=== PATIENT | male | born 1950 | race Caucasian/White ===

== ENCOUNTER 2024-09-30 21:46 | Inpatient (IN) ==
[2024-09-30] MEDS: ACETAMINOPHEN 1,000 MG/100 ML VIAL IV STA (22:33)
--- NOTE | 2024-09-30 22:42 | Emergency Department Note ---
History of Present Illness General Chief complaint: Leg Injury/Pain Stated complaint: R LEG GOING NUMB,?BLOODCLOT Time Seen by Provider: 09/30/24 22:01 History of Present Illness Maximum Pain Intensity: 5 This 74-year-old male presents to the ER complaining of bilateral leg pain and swelling with generalized weakness who was diagnosed with a DVT in the right leg 2 weeks ago by Hu and is currently on Eliquis. Patient denies chest pain, dyspnea, fever, chills, cough, congestion, trauma to the area. Home Medications Medication Instructions Recorded Confirmed Type multivitamin 1 tab PO DAILY 12/11/22 10/01/24 History vitamin B complex 1 tab PO DAILY 12/11/22 12/23/23 History ascorbic acid (vitamin C) 500 mg 500 mg PO DAILY 01/06/23 12/23/23 History tablet (Vitamin C) cholecalciferol (vitamin D3) 25 25 mcg PO DAILY 01/06/23 12/23/23 History mcg (1,000 unit) capsule ferrous sulfate 325 mg (65 mg 325 mg PO DAILY 01/06/23 12/23/23 History iron) tablet (iron) zinc gluconate 100 mg tablet 100 mg PO DAILY 01/06/23 12/23/23 History warfarin 5 mg tablet 5 mg PO DAILY 12/23/23 12/23/23 History lidocaine 5 % topical patch 1 patch topical DAILY PRN pain #15 08/07/24 Rx ea oxycodone 5 mg tablet 5 mg PO Q8H PRN pain #9 tabs 08/07/24 Rx apixaban 5 mg (74 tabs) tablets in 5 mg PO BID 10/01/24 10/01/24 History a dose pack (Eliquis) atorvastatin 40 mg tablet 40 mg PO QAM 10/01/24 10/01/24 History metoprolol succinate 25 mg 25 mg PO QAM 10/01/24 10/01/24 History tablet,extended release 24 hr mupirocin 2 % topical ointment 1 applic topical TID 10/01/24 10/01/24 History Allergies Allergy/AdvReac Type Severity Reaction Status Date / Time No Known Allergies Allergy Verified 12/23/23 07:40 Past Med/Surg History Problem List (Updated 10/01/24 @ 01:00 by Deisy Nash PA-C) Elevated troponin (Acute) Leukocytosis (Acute) Deep vein thrombosis (DVT) of right lower extremity (Acute) Weakness (Acute) Metastatic non-small cell lung cancer (Chronic) Biopsy on 11/11/22 Pain from bone metastases (Chronic) Pacemaker (Acute) Placed 09/30/22 Intermittent complete heart block (Acute) Hypertension Medical History DVT (deep venous thrombosis) Right leg LBBB (left bundle branch block) Surgical History Hx of tonsillectomy H/O right knee surgery Meniscus surgery History of surgery Lumbar spine surgery History of bronchoscopy Family History Mother , 79yo CHF (congestive heart failure) Father , 91yo Bladder cancer Brother No problems noted. Sister Lyme disease Many complications from this Daughter No problems noted. Daughter No problems noted. Daughter No problems noted. Daughter No problems noted. 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" - How many Children do You have: 4 Feels Safe at Home: Yes Diet: regular caffeine: No during the past year weight has: decreased > 10 lbs Assistive Devices: Glasses Review of Systems A total of 10 systems reviewed and were otherwise negative Physical Exam Vital Signs Vital Signs - 24 hr 09/30/24 21:51 09/30/24 22:22 09/30/24 23:00 Temperature 36.5 C Temperature Source Oral Pulse Rate 67 67 Pulse Rate [Apical] 61 Pulse Rate from SpO2 Sensor Pulse Rhythm Regular Pulse Strength Normal Respiratory Rate 19 20 18 Respiratory Effort / Characteristics Non-Labored Spontaneous Non-Labored Spontaneous Respiratory Depth Normal Respiratory Pattern Regular Regular Blood Pressure 125/80 102/64 Blood Pressure [Left Arm] 107/69 Blood Pressure Mean 95 77 Blood Pressure Mean [Left Arm] 81 Blood Pressure Position Sitting Blood Pressure Position [Left Arm] Lying Pulse Oximetry 95 97 95 Oxygen Delivery Method Room Air Room Air Room Air Sepsis Recent Fever Within 48 Hours No Sepsis New/Unexplained Change in Mental Status N/A Sepsis Action Taken by Nursing No Action Required 10/01/24 00:15 10/01/24 01:39 10/01/24 01:45 Temperature Temperature Source Pulse Rate 62 65 61 Pulse Rate [Apical] Pulse Rate from SpO2 Sensor 61 61 Pulse Rhythm Pulse Strength Respiratory Rate 13 16 Respiratory Effort / Characteristics Respiratory Depth Respiratory Pattern Blood Pressure 123/79 130/83 Blood Pressure [Left Arm] Blood Pressure Mean 93 98 Blood Pressure Mean [Left Arm] Blood Pressure Position Blood Pressure Position [Left Arm] Pulse Oximetry 95 98 Oxygen Delivery Method Room Air Room Air Sepsis Recent Fever Within 48 Hours Sepsis New/Unexplained Change in Mental Status Sepsis Action Taken by Nursing VITALS: Vitals are noted on the nurse's note and reviewed by myself. Vital signs stable. GENERAL: White male, in no acute distress, nondiaphoretic, well-developed well- nourished. SKIN: Capillary reflex less than 2 seconds. HEENT: Normocephalic. PERRLA. EOMI. Nares patent. Mucous membranes moist. Neck is supple without nuchal rigidity. HEART: Regular rate and rhythm LUNGS: Clear to auscultation bilaterally without wheezes, rales or rhonchi. No retractions or accessory muscle use. ABDOMEN: Positive bowel sounds x 4. Normal tympanic percussion. Soft, nontender, without masses or organomegaly. Castillo sign negative. No guarding or rebound tenderness. no CVA tenderness MUSCULOSKELETAL: No gross musculoskeletal defects. +2 pedal pitting edema bilaterally. Pedal pulses +2 equal and present bilaterally. Bilateral calves tender to palpation. Venous stasis changes bilaterally to lower legs. NEURO: Patient was alert and oriented to person place and time. No focal neurological deficits. Course Administered Medications Discontinued Medications Acetaminophen (Ofirmev) 1,000 mg in 100 mls @ 400 mls/hr IV NOW STA Stop: 09/30/24 22:21 Last Infusion: 09/30/24 22:48 Dose: Infused Documented By: Admin: 09/30/24 22:33 Dose: 400 mls/hr Documented By: RORO Ioversol (Optiray 320 125ml) 120 ml IV ONCE ONE Stop: 09/30/24 23:33 Last Admin: 09/30/24 23:32 Dose: 120 ml Documented By: FRANCOISE Medical Decision Making Medical Records Attestation: I reviewed the patient's medical records. Home Medications Current Medication List: was personally reviewed by me Laboratory Data Attestation: I reviewed the patient's lab results. 09/30/24 22:30 09/30/24 22:30 Lab Results 09/30/24 Range/Units 22:30 WBC 20.37 H (4.8-10.8) K/ul RBC 3.46 L (4.70-6.10) M/uL Hgb 12.0 L (14.0-18.0) g/dl Hct 35.5 L (42.0-52.0) % MCV 102.6 H (80.0-100.0) fL MCH 34.7 H (25.0-34.0) pg MCHC 33.8 (32.0-36.0) g/dL RDW Std Deviation 65.3 H (36.4-46.3) fL RDW Coeff of Kuldeep 17.6 H (11.5-14.5) % Plt Count 110 L (130-400) K/uL MPV 10.5 (9.4-12.4) fL Immature Gran % (Auto) 1.6 % Neut % (Auto) 93.5 % Lymph % (Auto) 1.2 % [place] % (Auto) 3.0 % Eos % (Auto) 0.0 % Baso % (Auto) 0.7 % Neut # (Auto) 19.02 H (1.40-6.50) K/uL Lymph # (Auto) 0.25 L (1.20-3.40) K/uL [place] # (Auto) 0.62 H (0.11-0.59) K/uL Eos # (Auto) 0.00 (0.00-0.50) K/uL Baso # (Auto) 0.15 (0.00-0.20) K/uL Immature Gran # (Auto) 0.33 H (0.01-0.20) K/uL Toxic Granulation 1+ Polychromasia 1+ Sodium 136 (136-145) mmol/L Potassium 3.5 (3.5-5.1) mmol/L Chloride 97 L (98-107) mmol/L Carbon Dioxide 33 H (21-32) mmol/L Anion Gap 6 (3-11) BUN 36 H (6-23) mg/dl Creatinine 0.77 (0.6-1.4) mg/dl Est Cr Clr Drug Dosing 83.5 ml/min eGFR 93.95 BUN/Creatinine Ratio 46.8 H (10-20) Glucose 135 H (70-99(Fasting)) mg/dl Calcium 8.4 L (8.6-10.3) mg/dl Magnesium 1.9 (1.7-2.4) mg/dl Total Bilirubin 0.9 (0.2-1.0) mg/dl AST 22 (13-39) U/L ALT 23 (7-52) U/L Alkaline Phosphatase 121 H (34-104) U/L Total Creatine Kinase 80 (30-223) U/L Troponin I High Sens 26.1 H (0-20) pg/ml Total Protein 5.1 L (6.0-8.3) gm/dl Albumin 3.1 L (3.4-5.0) gm/dl Globulin 2.0 L (2.5-4.0) gm/dl Albumin/Globulin Ratio 1.6 (0.9-2) TSH 1.002 (0.300-4.500) uIu/ml Imaging Data Attestation: I personally reviewed and interpreted this imaging study as follows: Radiologist's Impression: Chest CTA 09/30/24 22:07 Exam(s): CTA CHEST IV Amt: 120 ml EXAM: CT Angiography Chest With Intravenous Contrast CLINICAL HISTORY: Reason for exam: Eval for PE. TECHNIQUE: Axial computed tomographic angiography images of the chest with intravenous contrast. CTDI is 16.62 mGy and DLP is 526.45 mGy-cm. Automated exposure control was utilized for the study. A dose lowering technique was utilized adhering to the principles of ALARA. MIP reconstructed images were created and reviewed. COMPARISON: CT chest: 12/11/2022 FINDINGS: Motion-induced image degradation. Pulmonary arteries: A mildly enlarged right central pulmonary artery: 31 mm in diameter. No pulmonary embolism. Aorta: No acute findings. Calcified atheromatous plaques. An ectatic ascending aorta: 41 mm in diameter. No thoracic aortic aneurysm. Heart: Left subclavian pacemaker with intracardiac electrode leads. Moderate cardiomegaly. No significant pericardial effusion. No evidence of RV dysfunction. Lungs: Bilateral bronchial wall thickening/tubular bronchiectasis. Upper lobes dominant moderately severe centrilobular emphysema. Demonstrates diffuse subpleural reticulation and predominantly bibasilar honeycombing with traction bronchiectasis, compatible with usual interstitial pneumonia pattern fibrosis. A 2.3 x 1.7 cm spiculated mass versus previously 4.3 x 3.5 cm seen in the left lower lobe posteriorly (ser 3 image 51). Again noted a 10 mm pleural-based nodule in superior segment right lower lobe posteriorly (series 3 image 59). A new 2.2 x 1. 6 cm sub-solid nodule posteriorly in the left lower lobe (series 3 image 34). Small scattered additional pulmonary nodules. Pleural space: Unremarkable. No significant effusion. No pneumothorax. Bones/joints: No acute fracture. No dislocation. Degenerative thoracic spondylosis. Soft tissues: Unremarkable. Patulous somewhat dilated air-filled thoracic esophagus. Lymph nodes: Bilateral hilar small lymphadenopathy.. Small mediastinal lymph nodes.. Other findings: Bilaterally interval enlarged adrenal glands RT>LT. IMPRESSION: No evidence of pulmonary embolism or aortic aneurysm. Mildly enlarged central pulmonary artery. Moderate cardiomegaly. An ectatic ascending aorta. Moderately severe pulmonary emphysema. Bilateral bronchial wall thickening/central tubular bronchiectasis. UIP pattern pulmonary fibrosis. Again noted suspicious pulmonary nodules as described above. Bilateral hilar small lymphadenopathy. Interval enlarged bilateral adrenal glands RT>LT concerning for metastatic disease. . Electronically signed by: Stephenie Thompson MD, DABR 10/01/24 02:08 AM MDM Narrative Prior records/ancillary studies reviewed and summarized above. Nursing notes reviewed. Additional history obtained from nursing. The patient's history was concerning for leg pain and swelling and generalized weakness. Differential diagnosis: Etiologies such as DVT, metabolic, infection, hypo/hyperglycemia, electrolyte abnormalities, cardiac sources, intracerebral event, toxicologic, neurologic, as well as others were entertained. Physical examination: As above. ER treatment provided: IV Lock An order was placed for continuous cardiac monitoring. The monitor shows a rate of 60-100 with a sinus rhythm per my interpretation. Patient was observed On reassessment the patient felt better. Diagnostics interpretation by me: ECG: Ordered for weakness EKG: AV paced rhythm with no acute ST-T wave changes, rate of 62. Impression paced rhythm rate of 62 interval interpreted myself The labs Independently Interpreted by myself revealed leukocytosis, mild anemia, elevated troponin Imaging studies: Imaging was reviewed and read by radiology Consultation: A consultation was placed with the hospitalist. The case was discussed and diagnostics were reviewed. The patient was evaluated in the ER for further treatment. Exam and history seem consistent with ongoing DVT with weakness with lung cancer. Patient's troponin was slightly elevated. He does have an elevated white count. No obvious source of infection. Medicine was consulted case discussed. Patient will be admitted to the medical service. By the evaluation outlined above emergent etiologies such as infection, electrolyte abnormalities, intracerebral event, toxologic, neurologic, abnormalities blood glucose, metabolic, as well as others were deemed relatively unlikely. The pt informed about the findings as listed above. All questions were answered and pleased with the treatment. The chart was completed utilizing [employer] Speech voice recognition software. Grammatical errors, random word insertions, pronoun errors, and incomplete sentences are an occassional consequence of this system due to software limitations, ambient noise, and hardware issues. Any formal questions or concerns about the content, text, or information contained within the body of this dictation should be directly addressed to the physician traffic assistant for clarification. Impression & Plan Weakness, Deep vein thrombosis (DVT) of right lower extremity, Leukocytosis, Elevated troponin Discharge Plan Visit Data Chief Complaint: Leg Injury/Pain Stated Complaint: R LEG GOING NUMB,?BLOODCLOT ED Provider: Kenan Robertson ED Midlevel Provider: Deisy Nash Discharge Problem: Weakness, Deep vein thrombosis (DVT) of right lower extremity, Leukocytosis, Elevated troponin Patient Disposition: Admitted As Inpatient Condition: Fair Forms Stand Alone Forms: [facility] [employer] Prescriptions Prescriptions: No Action zinc gluconate 100 mg tablet 100 mg PO DAILY cholecalciferol (vitamin D3) 25 mcg (1,000 unit) capsule 25 mcg PO DAILY multivitamin Tablet 1 tab PO DAILY vitamin B complex Tablet 1 tab PO DAILY ascorbic acid (vitamin C) [Vitamin C] 500 mg tablet 500 mg PO DAILY ferrous sulfate [iron] 325 mg (65 mg iron) tablet 325 mg PO DAILY warfarin 5 mg Tablet 5 mg PO DAILY Rx Instructions: Dose as directed metoprolol tartrate 25 mg Tablet 25 mg PO DAILY mupirocin calcium 2 % cream 1 applic topical BID Qty: 30 0RF lidocaine 5 % adhesive patch,medicated 1 patch TOP DAILY PRN (Reason: pain) Qty: 15 0RF Rx Instructions: leave on most painful area for 12 hrs oxycodone 5 mg tablet 5 mg PO Q8H PRN (Reason: pain) Qty: 9 0RF Referrals Referrals: Tito Valenzuela DO [Primary Care Provider] -
[2024-09-30 23:00] LABS: Hematocrit (blood only) 35.5 % (42.0-52.0); Mean Corpuscular Hemoglobin 34.7 pg (25.0-34.0); Mean Corpuscular Hgb Conc 33.8 g/dL (32.0-36.0); Mean Corpuscular Volume 102.6 fL (80.0-100.0); Mean Platelet Volume 10.5 fL (9.4-12.4); Platelet Count 110 K/uL (130-400); RDW Coefficient of Variation 17.6 % (11.5-14.5); RDW Standard Deviation 65.3 fL (36.4-46.3); Red Blood Count 3.46 M/uL (4.70-6.10); White Blood Count 20.37 K/ul (4.8-10.8)
[2024-09-30 23:17] LABS: Albumin Globulin Ratio 1.6 (0.9-2); BUN Creatinine Ratio 46.8 (10-20); Bilirubin,Total 0.9 mg/dl (0.2-1.0); Calcium 8.4 mg/dl (8.6-10.3); Creatinine Clr Calc Pharmacy 83.5 ml/min; Magnesium 1.9 mg/dl (1.7-2.4); Potassium 3.5 mmol/L (3.5-5.1); Total Protein 5.1 gm/dl (6.0-8.3)
[2024-09-30 23:24] LABS: Troponin I High Sensitivity 26.1 pg/ml (0-20)
[2024-09-30] MEDS: OPTIRAY 320 125ml IV ONE (23:32)
[2024-09-30 23:34] LABS: Thyroid Stimulating Hormone 1.002 uIu/ml (0.300-4.500)
[2024-09-30 23:45] LABS: Basophils # (auto) 0.15 K/uL (0.00-0.20); Basophils % (auto) 0.7 %; Immature Granulocytes # (auto) 0.33 K/uL (0.01-0.20); Immature Granulocytes % (auto) 1.6 %; Lymphocytes # (auto) 0.25 K/uL (1.20-3.40); Lymphocytes % (auto) 1.2 %; Monocytes # (auto) 0.62 K/uL (0.11-0.59); Neutrophils # (auto) 19.02 K/uL (1.40-6.50); Neutrophils % (auto) 93.5 %; Polychromasia 1+; Toxic Granulation 1+
--- NOTE | 2024-10-01 02:09 | CT Scan Report ---
Exam(s): CTA CHEST IV Amt: 120 ml EXAM: CT Angiography Chest With Intravenous Contrast CLINICAL HISTORY: Reason for exam: Eval for PE. TECHNIQUE: Axial computed tomographic angiography images of the chest with intravenous contrast. CTDI is 16.62 mGy and DLP is 526.45 mGy-cm. Automated exposure control was utilized for the study. A dose lowering technique was utilized adhering to the principles of ALARA. MIP reconstructed images were created and reviewed. COMPARISON: CT chest: 12/11/2022 FINDINGS: Motion-induced image degradation. Pulmonary arteries: A mildly enlarged right central pulmonary artery: 31 mm in diameter. No pulmonary embolism. Aorta: No acute findings. Calcified atheromatous plaques. An ectatic ascending aorta: 41 mm in diameter. No thoracic aortic aneurysm. Heart: Left subclavian pacemaker with intracardiac electrode leads. Moderate cardiomegaly. No significant pericardial effusion. No evidence of RV dysfunction. Lungs: Bilateral bronchial wall thickening/tubular bronchiectasis. Upper lobes dominant moderately severe centrilobular emphysema. Demonstrates diffuse subpleural reticulation and predominantly bibasilar honeycombing with traction bronchiectasis, compatible with usual interstitial pneumonia pattern fibrosis. A 2.3 x 1.7 cm spiculated mass versus previously 4.3 x 3.5 cm seen in the left lower lobe posteriorly (ser 3 image 51). Again noted a 10 mm pleural-based nodule in superior segment right lower lobe posteriorly (series 3 image 59). A new 2.2 x 1. 6 cm sub-solid nodule posteriorly in the left lower lobe (series 3 image 34). Small scattered additional pulmonary nodules. Pleural space: Unremarkable. No significant effusion. No pneumothorax. Bones/joints: No acute fracture. No dislocation. Degenerative thoracic spondylosis. Soft tissues: Unremarkable. Patulous somewhat dilated air-filled thoracic esophagus. Lymph nodes: Bilateral hilar small lymphadenopathy.. Small mediastinal lymph nodes.. Other findings: Bilaterally interval enlarged adrenal glands RT>LT. IMPRESSION: No evidence of pulmonary embolism or aortic aneurysm. Mildly enlarged central pulmonary artery. Moderate cardiomegaly. An ectatic ascending aorta. Moderately severe pulmonary emphysema. Bilateral bronchial wall thickening/central tubular bronchiectasis. UIP pattern pulmonary fibrosis. Again noted suspicious pulmonary nodules as described above. Bilateral hilar small lymphadenopathy. Interval enlarged bilateral adrenal glands RT>LT concerning for metastatic disease. . Electronically signed by: Stephenie Thompson MD, DABR 10/01/24 02:08 AM
--- NOTE | 2024-10-01 02:28 | Ultrasound Report ---
EXAM: US venous doppler LE BI CLINICAL HISTORY: Eval for DVT TECHNIQUE: Ultrasound examination of bilateral lower extremity veins was performed in real time and duplex. One or more of the following were performed: spectral analysis, resistive index, waveform analysis, and pulsed Doppler. COMPARISON: Ultrasound dated 06/02/2023. FINDINGS: Right lower extremity: A small non-occlusive echogenic thrombus with linear calcifications is seen in the right popliteal vein, measuring 3.5 mm, likely chronic (unchanged). Normal phasic, non-pulsatile, and spontaneous flow is noted in the right common femoral, superficial femoral, anterior and posterior tibial, and peroneal veins. Visualized veins of the right lower extremity demonstrate normal compressibility. No sonographic evidence of acute deep vein thrombosis (DVT) is detected in the visualized veins of the lower extremity. Compression and Augmentation: All evaluated veins compress fully with applied transducer pressure. Augmentation of venous flow is noted with distal compression. Left lower extremity: Normal phasic, non-pulsatile, and spontaneous flow is noted in the left common femoral, superficial femoral, popliteal, anterior and posterior tibial, and peroneal veins. Visualized veins of the right lower extremity demonstrate normal compressibility. No sonographic evidence of acute deep vein thrombosis (DVT) is detected in the visualized veins of the lower extremity. Compression and Augmentation: All evaluated veins compress fully with applied transducer pressure. Augmentation of venous flow is noted with distal compression. Additional Findings: Edematous changes are seen in the bilateral calf regions. IMPRESSION: 1. No sonographic evidence of acute DVT was detected in bilateral lower extremity veins. 2. A small non-occlusive echogenic thrombus with linear calcifications is seen in the right popliteal vein, likely chronic (unchanged). 3. Edematous changes are seen in the bilateral calf regions(new). Disclaimer: DVT could be missed early in the disease when the clot burden is minimal. For patients with moderate and high pretest probability of DVT and negative ultrasound, the [employer] clinical guidelines recommend testing with a D-dimer assay or repeat ultrasound in 5-7 days. If symptoms worsen, the Society of [employer] in Ultras[employer] recommends repeating the ultrasound even earlier. Electronically signed by Bismark Stiles 10-01-2024 02:28 AM
[2024-10-01 02:48] LABS: INR 1.2 (0.9-1.1); Prothrombin Time 12.4 Seconds (9.0-12.0)
--- NOTE | 2024-10-01 03:38 | History & Physical Report ---
Date of Service October 01, 2024 Assessment & Plan (1) Right leg weakness: Plan: Assessment and plan below following discussion of case with ED provider and reviewing patient history/pertinent normal/abnormal diagnostic test results. RLE weakness rule out CVA hx CAD complete heart block status post PPM A-fib/DVT on Eliquis Chronic LBBB hypertension, stable hyperlipidemia, on statin Rx COPD/ILD as per records, lung status at baseline metastatic NSCLC status post radiation ongoing chemotherapy, outpatient PET/CT scheduled few days from now Chronic anemia, hemoglobin at baseline Leukocytosis with new onset thrombocytopenia right rotator cuff tear following trauma last month, patient follows with [facility] past tobacco abuse OBS Admit to med/tele Neurochecks MRI brain (Patient pacemaker is MRI compatible.) Further workup/management contingent on MRI results Hold BP medication until acute stroke ruled out Peripheral blood smear RE abnormal CBC DVT prophylaxis. Eliquis DNR Text document was generated using [employer] voice recognition software. It may contain grammatical or spelling errors. Kindly contact undersigned for clarification of any documentation item in question. History of Present Illness Chief Complaint: Right leg weakness Primary Care Provider: Tito Valenzuela DO History obtained from patient and records. Medical history significant for CAD, complete heart block status post PPM, A- fib/DVT on Eliquis, LBBB, hypertension, hyperlipidemia, PVD, COPD/ILD as per records, DAVID, metastatic NSCLC status post radiation ongoing chemotherapy, GERD, chronic anemia (baseline hemoglobin 10-11), right rotator cuff tear, past tobacco abuse. Few days history of progressive bilateral LE weakness, right greater than the left. No headache or unusual back pain symptoms. No recollection of recent trauma. Usual bilateral leg swelling. No chest pain, or SOB. No fever, no chills. Patient consulted ER for evaluation of symptoms. 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 100 mcg-umeclid 1 inh inhalation UD 10/01/24 10/01/24 History 62.5 mcg-vilant 25 mcg inhalat.powder (Trelegy Ellipta) metoprolol succinate 25 mg 25 mg PO QAM 10/01/24 10/01/24 History tablet,extended release 24 hr multivitamin 1 tab PO QAM 10/01/24 10/01/24 History mupirocin 2 % topical ointment 1 applic topical TID 10/01/24 10/01/24 History Past Med/Surg History Problem List (Updated 10/01/24 @ 09:52 by Esteban Olmos MD) Right leg weakness Elevated troponin (Acute) Leukocytosis (Acute) Deep vein thrombosis (DVT) of right lower extremity (Acute) Weakness (Acute) Metastatic non-small cell lung cancer (Chronic) Biopsy on 11/11/22 Pain from bone metastases (Chronic) Pacemaker (Acute) Placed 09/30/22 Intermittent complete heart block (Acute) Hypertension Medical History DVT (deep venous thrombosis) Right leg LBBB (left bundle branch block) Surgical History Hx of tonsillectomy H/O right knee surgery Meniscus surgery History of surgery Lumbar spine surgery History of bronchoscopy Family History Mother , 79yo CHF (congestive heart failure) Father , 91yo Bladder cancer Brother No problems noted. Sister Lyme disease Many complications from this Daughter No problems noted. Daughter No problems noted. Daughter No problems noted. Daughter No problems noted. 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" - How many Children do You have: 4 Feels Safe at Home: Yes Safety Concerns: Feels Safe At This Time Diet: regular caffeine: No during the past year weight has: decreased > 10 lbs Assistive Devices: Glasses Review of Systems Review of Systems: As per HPI, all other systems reviewed and negative Physical Exam Physical Exam: GENERAL: Pleasant, slightly anxious, no respiratory distress SKIN: Pallor, warm HEENT: Alopecia, pale palpebral conjunctivae, no ptosis, dry buccal mucosa NECK : Supple, no tenderness CHEST : Decreased breath sounds, no tenderness HEART : RRR, no obvious murmurs ABDOMEN: Some distention, nontender EXTREMITIES : Bilateral LE swelling without tenderness (chronic as per patient), palpable pulses, no other conspicuous deformities noted NEUROLOGIC : Coherent, no facial asymmetry, MMTS 3/5 L>R, gait and stance not assessed Results & Data Results & Data Vital Signs (Past 12 Hours) Vital Signs Temp Pulse Pulse Resp BP BP Pulse Ox 10/01/24 02:42 67 13 116/77 95 10/01/24 02:12 63 12 117/77 94 10/01/24 01:45 61 10/01/24 01:39 65 16 130/83 98 10/01/24 00:15 62 13 123/79 95 09/30/24 23:00 67 18 102/64 95 09/30/24 22:22 61 20 107/69 97 09/30/24 21:51 36.5 C 67 19 125/80 95 O2 Del Method 10/01/24 02:42 10/01/24 02:12 10/01/24 01:45 10/01/24 01:39 Room Air 10/01/24 00:15 Room Air 09/30/24 23:00 Room Air 09/30/24 22:22 Room Air 09/30/24 21:51 Room Air Laboratory Results Laboratory Results WBC 20.37 K/ul (4.8-10.8) H 09/30/24 22:30 RBC 3.46 M/uL (4.70-6.10) L 09/30/24 22:30 Hgb 12.0 g/dl (14.0-18.0) L 09/30/24 22:30 Hct 35.5 % (42.0-52.0) L 09/30/24 22:30 MCV 102.6 fL (80.0-100.0) H 09/30/24 22: MCH 34.7 pg (25.0-34.0) H 09/30/24: MCHC 33.8 g/dL (32.0-36.0) 09/30/24: RDW Std Deviation 65.3 fL (36.4-46.3) H 09/30/24: RDW Coeff of Kuldeep 17.6 % (11.5-14.5) H 09/30/24: Plt Count 110 K/uL (130-400) L 09/30/24: MPV 10.5 fL (9.4-12.4) 09/30/24: Immature Gran % (Auto) 1.6 % 09/30/24: Neut % (Auto) 93.5 % 09/30/24: Lymph % (Auto) 1.2 % 09/30/24: Dickens % (Auto) 3.0 % 09/30/24: Eos % (Auto) 0.0 % 09/30/24: Baso % (Auto) 0.7 % 09/30/24: Neut # (Auto) 19.02 K/uL (1.40-6.50) H 09/30/24: Lymph # (Auto) 0.25 K/uL (1.20-3.40) L 09/30/24:30 Dickens # (Auto) 0.62 K/uL (0.11-0.59) H 09/30/24: Eos # (Auto) 0.00 K/uL (0.00-0.50) 09/30/24: Baso # (Auto) 0.15 K/uL (0.00-0.20) 09/30/24: Immature Gran # (Auto) 0.33 K/uL (0.01-0.20) H 09/30/24 22: Toxic Granulation 1+ 09/30/24: Polychromasia 1+ 09/30/24: PT 12.4 Seconds (9.0-12.0) H 09/30/24: INR 1.2 (0.9-1.1) H 09/30/24 22:30 Sodium 136 mmol/L (136-145) 09/30/24 22:30 Potassium 3.5 mmol/L (3.5-5.1) 09/30/24 22:30 Chloride 97 mmol/L (98-107) L 09/30/24 22:30 Carbon Dioxide 33 mmol/L (21-32) H 09/30/24 22:30 Anion Gap 6 (3-11) 09/30/24 22:30 BUN 36 mg/dl (6-23) H 09/30/24 22:30 Creatinine 0.77 mg/dl (0.6-1.4) 09/30/24 22: Est Cr Clr Drug Dosing 83.5 ml/min 09/30/24 22:30 eGFR 93.95 09/30/24 22:30 BUN/Creatinine Ratio 46.8 (10-20) H 09/30/24 22:30 Glucose 135 mg/dl (70-99(Fasting)) H 09/30/24 22:30 Calcium 8.4 mg/dl (8.6-10.3) L 09/30/24 22:30 Magnesium 1.9 mg/dl (1.7-2.4) 09/30/24 22:30 Total Bilirubin 0.9 mg/dl (0.2-1.0) 09/30/24 22:30 AST 22 U/L (13-39) 09/30/24 22:30 ALT 23 U/L (7-52) 09/30/24 22:30 Alkaline Phosphatase 121 U/L (34-104) H 09/30/24 22:30 Total Creatine Kinase 80 U/L (30-223) 09/30/24 22:30 Troponin I High Sens 26.1 pg/ml (0-20) H 09/30/24 22:30 Total Protein 5.1 gm/dl (6.0-8.3) L 09/30/24 22:30 Albumin 3.1 gm/dl (3.4-5.0) L 09/30/24 22:30 Globulin 2.0 gm/dl (2.5-4.0) L 09/30/24 22:30 Albumin/Globulin Ratio 1.6 (0.9-2) 06/28/25 22:30 Procalcitonin 0.06 ng/ml (0-0.5) 09/30/24 22:30 TSH 1.002 uIu/ml (0.300-4.500) 09/30/24 22:30 Impressions Chest CTA 09/30/24 22:07 Exam(s): CTA CHEST IV Amt: 120 ml EXAM: CT Angiography Chest With Intravenous Contrast CLINICAL HISTORY: Reason for exam: Eval for PE. TECHNIQUE: Axial computed tomographic angiography images of the chest with intravenous contrast. CTDI is 16.62 mGy and DLP is 526.45 mGy-cm. Automated exposure control was utilized for the study. A dose lowering technique was utilized adhering to the principles of ALARA. MIP reconstructed images were created and reviewed. COMPARISON: CT chest: 12/11/2022 FINDINGS: Motion-induced image degradation. Pulmonary arteries: A mildly enlarged right central pulmonary artery: 31 mm in diameter. No pulmonary embolism. Aorta: No acute findings. Calcified atheromatous plaques. An ectatic ascending aorta: 41 mm in diameter. No thoracic aortic aneurysm. Heart: Left subclavian pacemaker with intracardiac electrode leads. Moderate cardiomegaly. No significant pericardial effusion. No evidence of RV dysfunction. Lungs: Bilateral bronchial wall thickening/tubular bronchiectasis. Upper lobes dominant moderately severe centrilobular emphysema. Demonstrates diffuse subpleural reticulation and predominantly bibasilar honeycombing with traction bronchiectasis, compatible with usual interstitial pneumonia pattern fibrosis. A 2.3 x 1.7 cm spiculated mass versus previously 4.3 x 3.5 cm seen in the left lower lobe posteriorly (ser 3 image 51). Again noted a 10 mm pleural-based nodule in superior segment right lower lobe posteriorly (series 3 image 59). A new 2.2 x 1. 6 cm sub-solid nodule posteriorly in the left lower lobe (series 3 image 34). Small scattered additional pulmonary nodules. Pleural space: Unremarkable. No significant effusion. No pneumothorax. Bones/joints: No acute fracture. No dislocation. Degenerative thoracic spondylosis. Soft tissues: Unremarkable. Patulous somewhat dilated air-filled thoracic esophagus. Lymph nodes: Bilateral hilar small lymphadenopathy.. Small mediastinal lymph nodes.. Other findings: Bilaterally interval enlarged adrenal glands RT>LT. IMPRESSION: No evidence of pulmonary embolism or aortic aneurysm. Mildly enlarged central pulmonary artery. Moderate cardiomegaly. An ectatic ascending aorta. Moderately severe pulmonary emphysema. Bilateral bronchial wall thickening/central tubular bronchiectasis. UIP pattern pulmonary fibrosis. Again noted suspicious pulmonary nodules as described above. Bilateral hilar small lymphadenopathy. Interval enlarged bilateral adrenal glands RT>LT concerning for metastatic disease. . Electronically signed by: Stephenie Thompson MD, VARINDERR 10/01/24 02:08 AM Venous Doppler Study 09/30/24 22:07 EXAM: US venous doppler LE BI CLINICAL HISTORY: Eval for DVT TECHNIQUE: Ultrasound examination of bilateral lower extremity veins was performed in real time and duplex. One or more of the following were performed: spectral analysis, resistive index, waveform analysis, and pulsed Doppler. COMPARISON: Ultrasound dated 06/02/2023. FINDINGS: Right lower extremity: A small non-occlusive echogenic thrombus with linear calcifications is seen in the right popliteal vein, measuring 3.5 mm, likely chronic (unchanged). Normal phasic, non-pulsatile, and spontaneous flow is noted in the right common femoral, superficial femoral, anterior and posterior tibial, and peroneal veins. Visualized veins of the right lower extremity demonstrate normal compressibility. No sonographic evidence of acute deep vein thrombosis (DVT) is detected in the visualized veins of the lower extremity. Compression and Augmentation: All evaluated veins compress fully with applied transducer pressure. Augmentation of venous flow is noted with distal compression. Left lower extremity: Normal phasic, non-pulsatile, and spontaneous flow is noted in the left common femoral, superficial femoral, popliteal, anterior and posterior tibial, and peroneal veins. Visualized veins of the right lower extremity demonstrate normal compressibility. No sonographic evidence of acute deep vein thrombosis (DVT) is detected in the visualized veins of the lower extremity. Compression and Augmentation: All evaluated veins compress fully with applied transducer pressure. Augmentation of venous flow is noted with distal compression. Additional Findings: Edematous changes are seen in the bilateral calf regions. IMPRESSION: 1. No sonographic evidence of acute DVT was detected in bilateral lower extremity veins. 2. A small non-occlusive echogenic thrombus with linear calcifications is seen in the right popliteal vein, likely chronic (unchanged). 3. Edematous changes are seen in the bilateral calf regions(new). Disclaimer: DVT could be missed early in the disease when the clot burden is minimal. For patients with moderate and high pretest probability of DVT and negative ultrasound, the [employer] clinical guidelines recommend testing with a D-dimer assay or repeat ultrasound in 5-7 days. If symptoms worsen, the Society of Radiologists in Ultrasound recommends repeating the ultrasound even earlier. Electronically signed by Bismark Stiles 10-01-2024 02:[address] head: 1. No acute intracranial abnormality is detected. 2. Chronic ischemic white matter changes. CTA head angio: 1. Mild atherosclerotic calcification and irregularity is seen in the petrous and cavernous segment of bilateral internal carotid arteries. CTA neck angio: 1. Atherosclerotic calcific plaques are seen in bilateral proximal internal carotid arteries causing mild stenosis (20-30 percent). No evidence of dissection or aneurysm. Diagnostic Findings EKG as per my interpretation :Rate 60, paced rhythm
[2024-10-01] MEDS ORDERED: PROMETHAZINE 6.25 MG/50.25 ML BAG IV PRN (03:40)
[2024-10-01] MEDS ORDERED: oxyCODONE HCL IR 5 MG TAB (IMMEDIATE RELEASE) PO PRN (03:40)
[2024-10-01] MEDS ORDERED: ACETAMINOPHEN 325 MG TAB PO PRN (03:40)
[2024-10-01] MEDS ORDERED: PHARMACIST DISCHARGE MED REC CONSULT PRN (03:44)
[2024-10-01] MEDS ORDERED: NON-FORMULARY MEDICATION (Fluticasone-Umeclidin-Vilanter [Trelegy Ellipta] 100-62.5-25 mcg INH SCH (03:45)
[2024-10-01] MEDS: OPTIRAY 320 125ml IV ONE (03:45)
[2024-10-01 04:25] LABS: Appearance Urine Clear (Clear); Bilirubin Urine Negative (Negative); Blood Urine Negative (Negative); Color Urine Yellow; Glucose Urine UA Negative (Negative); Ketones Urine Negative (Negative); Leukocyte Esterase Urine Negative (Negative); Nitrite Urine Negative (Negative); Protein Urine Negative (Negative); Specific Gravity Urine > 1.045 (1.000-1.030); Urobilinogen Urine Negative (Negative); pH Urine 7.5 (4.5-7.5)
[2024-10-01] MEDS: ALBUMIN 25% 12.5 GM/50 ML VIAL IV STA (04:34)
[2024-10-01] MEDS: POTASSIUM CHLORIDE PWD 20 MEQ PACK PO STA (04:34)
[2024-10-01] MEDS: MAGNESIUM SULFATE / D5W 1 GM/100 ML BAG IV STA (04:44)
--- NOTE | 2024-10-01 05:10 | CT Scan Report ---
EXAM: CT angio neck with con CLINICAL HISTORY: RLE weakness TECHNIQUE: Contrast enhanced thin slice CT angiography scan of the carotid vessels was performed with intravenous contrast. Angiographic images were processed, 3D MIP images were acquired for interpretation.Contiguous axial images were obtained. Reformatted coronal and sagittal images were also reviewed. If IV contrast material had not been administered, the likelihood of detecting abnormalities relevant to the patients condition would have been substantially decreased. CT scan was performed according to ALARA (as low as reasonable achievable). COMPARISON: - FINDINGS: Included great vessels of the aortic arch are grossly unremarkable. Common carotid artery, carotid Bulb, internal carotid artery , and origin of the external carotid artery are well opacified. Atherosclerotic calcific plaques are seen in bilateral proximal internal carotid arteries causing mild stenosis of around 20-30 percent. Vertebral arteries are well opacified. Jugular veins are well opacified. Included lung apices are grossly unremarkable. Thyroid gland appears unremarkable. IMPRESSION: 1. Atherosclerotic calcific plaques are seen in bilateral proximal internal carotid arteries causing mild stenosis (20-30 percent). No evidence of dissection or aneurysm. Electronically signed by Hank Grider 10-01-2024 05:10 AM
--- NOTE | 2024-10-01 05:11 | CT Scan Report ---
EXAM: CT head/brain wo con CLINICAL HISTORY: RLE weakness, eliquis TECHNIQUE: Multiple axial images are obtained from the skull base to the vertex without contrast. CT scan was performed according to ALARA (as low as reasonable achievable). COMPARISON: MR dated 12/17/2022 09:15:56 SPECIAL NEEDS NANNY. FINDINGS: Periventricular white matter ischemic changes. Rest of the brain shows normal morphology, attenuation, and volume for age. No evidence of hemorrhage, mass effect, midline shift, extra axial collection, or hydrocephalus is noted. Ventricles, sulci, and basal cisterns are symmetric and normal in size and configuration. The velasquez-white matter differentiation is preserved. Visualized paranasal sinuses and mastoid air cells are well aerated. Orbital contents are within normal limits. Bony structures are intact. IMPRESSION: 1. No acute intracranial abnormality is detected. 2. Chronic ischemic white matter changes. Electronically signed by Hank Grider 10-01-2024 05:11 AM
--- NOTE | 2024-10-01 05:11 | CT Scan Report ---
EXAM: CT angio head w con CLINICAL HISTORY: RLE weakness TECHNIQUE: Contrast enhanced thin slice CT angiography scan of the cerebral vessels was performed with intravenous contrast. Angiographic images were processed, 3D MIP images were acquired for interpretation. Contiguous axial images were obtained. Reformatted coronal and sagittal images were also reviewed. If IV contrast material had not been administered, the likelihood of detecting abnormalities relevant to the patients condition would have been substantially decreased. CT scan was performed according to ALARA (as low as reasonable achievable). COMPARISON: - FINDINGS: Mild atherosclerotic calcification and irregularity is seen in the petrous and cavernous segment of bilateral internal carotid arteries. Their division into the anterior cerebral artery and middle cerebral artery is defined. A1, A2 and M1, M2 segments are normal on both the sides. Bilateral vertebral arteries are seen to unite the form the basilar artery in a normal fashion. Basilar artery shows normal course, caliber and opacification. Its division into the posterior cerebral arteries is defined. Bilateral P1 and P2 segments are normal. Visualized venous structures show normal opacification. No evidence of intracranial aneurysm or AV malformation is seen. IMPRESSION: 1. Mild atherosclerotic calcification and irregularity is seen in the petrous and cavernous segment of bilateral internal carotid arteries. Electronically signed by Hank Grider 10-01-2024 05:11 AM
[2024-10-01 06:41] LABS: Hematocrit (blood only) 32.6 % (42.0-52.0); Hemoglobin 11.2 g/dl (14.0-18.0); Mean Corpuscular Hemoglobin 35.1 pg (25.0-34.0); Mean Corpuscular Hgb Conc 34.4 g/dL (32.0-36.0); Mean Corpuscular Volume 102.2 fL (80.0-100.0); Mean Platelet Volume 9.8 fL (9.4-12.4); Platelet Count 100 K/uL (130-400); RDW Coefficient of Variation 17.3 % (11.5-14.5); RDW Standard Deviation 65.1 fL (36.4-46.3); Red Blood Count 3.19 M/uL (4.70-6.10); White Blood Count 16.05 K/ul (4.8-10.8)
[2024-10-01 06:58] LABS: Chol HDL Ratio 2.4 (0-5)
[2024-10-01 07:03] LABS: BUN Creatinine Ratio 47.5 (10-20); Calcium 8.4 mg/dl (8.6-10.3); Creatinine Clr Calc Pharmacy 105.3 ml/min
[2024-10-01 07:10] LABS: Troponin I High Sensitivity 22.5 pg/ml (0-20)
[2024-10-01 07:14] LABS: Basophils # (auto) 0.04 K/uL (0.00-0.20); Basophils % (auto) 0.2 %; Immature Granulocytes # (auto) 0.15 K/uL (0.01-0.20); Immature Granulocytes % (auto) 0.9 %; Lymphocytes # (auto) 0.23 K/uL (1.20-3.40); Lymphocytes % (auto) 1.4 %; Monocytes # (auto) 0.68 K/uL (0.11-0.59); Monocytes % (auto) 4.2 %; Neutrophils # (auto) 14.95 K/uL (1.40-6.50); Neutrophils % (auto) 93.3 %; Polychromasia 1+; Toxic Granulation 2+
[2024-10-01 08:05] LABS: Estimated Average Glucose 111 mg/dl; Hemoglobin A1C 5.5 % (4.5-5.6)
[2024-10-01] MEDS ORDERED: NON-FORMULARY MEDICATION (Apixaban [Eliquis] 5 mg (74 tabs) tablets,dose pack) PO SCH (09:00)
[2024-10-01] MEDS: ATORVASTATIN 40 MG TAB PO SCH (10:01)
[2024-10-01] MEDS: APIXABAN 5 MG TABLET PO SCH (10:01)
[2024-10-01] MEDS: MULTIVITAMIN TAB PO SCH (10:01)
[2024-10-01] MEDS: UMECLIDINIUM/VILANTEROL 62.5/25MCG 7 PUFFS/INHALER INH SCH (10:02)
[2024-10-01] MEDS: FLUTICASONE FUROATE 100MCG 14 PUFFS/INHALER INH SCH (10:02)
--- NOTE | 2024-10-01 11:57 | Electrocardiogram Report ---
Test Reason : Blood Pressure : */* mmHG Vent. Rate : 62 BPM Atrial Rate : 62 BPM P-R Int : 178 ms QRS Dur : 114 ms QT Int : 448 ms P-R-T Axes : 96 -22 6 degrees QTcB Int : 454 ms AV dual-paced rhythm PACs Abnormal ECG When compared with ECG of 05-Dec-2023 12:27, No significant change was found Confirmed by Hood Young ([id number]) on 10/01/2024 11:57:37 AM Referred By: REFERRED SELF Confirmed By: Hood Young
--- NOTE | 2024-10-01 14:14 | Hospitalist Progress Note ---
Date of Service October 01, 2024 Assessment & Plan (1) Right leg weakness: Plan: Assessment and plan below following discussion of case with ED provider and reviewing patient history/pertinent normal/abnormal diagnostic test results. BL Lower extremity weakness Lung Cancer on Chemotherapy r/o acute CVA r/o Lumbar spine compression, stenosis -- CT head: no acute procress CT angio: Atherosclerotic calcific plaques are seen in bilateral proximal in ternal carotid arteries causing mild stenosis (20-30 percent). -- Brain MRI pending CT Lumbar spine: pending MRI Lumbar spine: pending -- check Vit b12 and Folate -- Neuro consulted hx CAD complete heart block status post PPM A-fib/DVT on Eliquis Chronic LBBB hypertension-- stable, Hold BP medication until acute stroke ruled out hyperlipidemia, on statin Rx COPD/ILD as per records, lung status at baseline metastatic NSCLC status post radiation ongoing chemotherapy, outpatient PET/CT scheduled few days from now Chronic anemia, hemoglobin at baseline Leukocytosis with new onset thrombocytopenia-- monitor, Peripheral blood smear RE abnormal CBC right rotator cuff tear following trauma last month, patient follows with [facility] past tobacco abuse DVT prophylaxis. Marcelo DNR plan of care discussed with patient in detail and at length all questions answered he is understanding, agreeable, comfortable with the plan of care Admission and Anticipated Discharge Date Admission Date: October 01, 2024 Subjective ff up for BL lower extremity weakness, etc seen resting in bed comfortable in good spirits states he feels about the same as yesterday still has BL lower extremity weakness- progressive for the past 3-4 weeks, worsened the past few days also has numbness but mostly on BL feet no incontinence no other focal neurologic deficits no chest pain, dyspnea, palpitations, dizziness no other symptoms Review of Systems Review of Systems: all noted and negative except for above Physical Exam Physical Exam: General- oriented x 3, not in distress, speaks in sentences with no effort or accessory muscle use Eyes- anicteric Neck- no JVD Lungs- clear breath sounds bilaterally, no rales/wheezes Heart- normal rate, regular rhythm; no murmurs Abdomen- normal bowel sounds, nondistended, soft, nontender Extremities- no pretibial edema, no calf tenderness Neuro- alert, oriented x 3; strength UE: 5/5, LE: 3/4 on the right 4 on the left, LE sensation 90% Skin- warm & dry Results & Data Results & Data Vital Signs (Past 12 Hours) Vital Signs Temp Pulse Pulse Resp BP BP Pulse Ox 10/01/24 11:37 36.7 C 60 18 115/71 95 10/01/24 08:40 10/01/24 08:40 36.5 C 60 20 126/76 96 10/01/24 07:29 67 15 118/75 97 10/01/24 06:57 65 10/01/24 06:00 80 20 113/80 96 10/01/24 05:00 63 18 134/85 97 10/01/24 04:00 65 18 128/88 96 10/01/24 03:00 61 16 122/84 95 10/01/24 02:42 67 13 116/77 95 O2 Del Method 10/01/24 11:37 Room Air 10/01/24 08:40 Room Air 10/01/24 08:40 Room Air 10/01/24 07:29 Room Air 10/01/24 06:57 10/01/24 06:00 10/01/24 05:00 10/01/24 04:00 10/01/24 03:00 10/01/24 02:42 all noted and reviewed including below
--- NOTE | 2024-10-01 14:29 | Neurology Consultation ---
Date of Consultation October 01, 2024 Assessment & Plan (1) Weakness: Joaquin Molina is a 74 yo M presenting with gradual weakness of the bilateral lower extremities with muscle wasting from metastatic lung CA on chemo, now on chronic decadron which was previously chemo dose pre-treatment. Unclear why the decadron is now daily but this is likely contributing to his primarily large muscle weakness and wasting. Ultimately L-spine disease and nerve compression either from his known compression fractures and/or cancer could also be contributing. The history, pattern of weakness and exam do not suggest stroke and more importantly he is fully anticoagulated with platelet count of 100 - we can not be any more aggressive with stroke risk factor reduction precluding further stroke workup. -- MRI L-spine with and without contrast -- Continue anticoagulation -- Therapy evals -- Would ask/discuss the need for chronic decadron from his oncology team Telehealth Consultation Telehealth Information Telehealth Information: I performed this visit using a real-time telehealth connection between my location and the patients location ([facility]). After connecting through interactive tele-video, patient was identified by name and date of and/or wristband check.Patient (or authorized healthcare provider service representative) was informed that this was a telemedicine visit and it was being conducted confidentially over secure lines. My office door was closed and no one else was present in the room with me.Patient (or authorized healthcare provider service representative) provided consent to proceed with the visit, expressed an understanding of privacy and security of the telemedicine visit, and gave permission to have a hospital provider service representative in the room in order to assist with the visit and to conduct portions of the visit, as needed. I informed the patient (or authorized healthcare provider service representative) that I reviewed their record and presented the opportunity for them to ask any questions regarding the visit today. The patient agreed to participate. History of Present Illness Reason for Consultation: Leg weakness Requesting Physician: Dr. Kerr Attending Physician: Sonu Kerr MD History of Present Illness Joaquin Molina is a 74 yo M with a history of metastatic lung CA, recent R LE DVT despite anticoagulation with warfarin, switched to Eliquis and new progressive lower extremity weakness. He is having difficulty working which is why he came to the hospital. Since the change in his meds and persistent use of decadron for the past few weeks he has noticed ongoing muscle wasting. He was 215lbs with significant muscle in the past and now "feels like a skeleton". He has been taking his elqiuis and denies any acute/sudden onset focal weakness. He has a history of lumbar compression fractures and was told there was cancer in the bone in the past. He denies any recent falls or new onset back pain but has chronic back pain that is unchanged. He feels both legs are significantly weak, primarily in the large upper leg muscles. Allergies Allergy/AdvReac Type Severity Reaction Status Date / Time No Known Allergies Allergy Verified 10/01/24 02:37 Home Medications Medication Instructions Recorded Confirmed Type apixaban 5 mg (74 tabs) tablets in 5 mg PO BID 10/01/24 10/01/24 History a dose pack (Eliquis) atorvastatin 40 mg tablet 40 mg PO QAM 10/01/24 10/01/24 History fluticasone fur. 100 mcg-umeclid 1 inh inhalation UD 10/01/24 10/01/24 History 62.5 mcg-vilant 25 mcg inhalat.powder (Trelegy Ellipta) metoprolol succinate 25 mg 25 mg PO QAM 10/01/24 10/01/24 History tablet,extended release 24 hr multivitamin 1 tab PO QAM 10/01/24 10/01/24 History mupirocin 2 % topical ointment 1 applic topical TID 10/01/24 10/01/24 History Patient History Medical History DVT (deep venous thrombosis) Right leg LBBB (left bundle branch block) Surgical History Hx of tonsillectomy H/O right knee surgery Meniscus surgery History of surgery Lumbar spine surgery History of bronchoscopy Family History Mother , 79yo CHF (congestive heart failure) Father , 91yo Bladder cancer Brother No problems noted. Sister Lyme disease Many complications from this Daughter No problems noted. Daughter No problems noted. Daughter No problems noted. Daughter No problems noted. 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 Oriented to person, place, and time. Fluent. Comprehension intact. Affect appropriate. Cranial Nerves: V: Facial sensation symmetric to light touch VII: Facial expression symmetric VIII: Hearing intact to voice Motor: Strength was reduced throughout, unable to lift R arm due to shoulder injury. Intact distal lower extremity strength, unable to lift leg bilaterally. There were no abnormal movements. Reflexes: Unable to assess over telemedicine Results & Data Vital Signs (Past 12 Hours) Vital Signs Temp Pulse Pulse Resp BP BP Pulse Ox 10/01/24 14:20 60 10/01/24 11:37 36.7 C 60 18 115/71 95 10/01/24 08:40 61 10/01/24 08:40 10/01/24 08:40 36.5 C 60 20 126/76 96 10/01/24 07:29 67 15 118/75 97 10/01/24 06:57 65 10/01/24 06:00 80 20 113/80 96 10/01/24 05:00 63 18 134/85 97 10/01/24 04:00 65 18 128/88 96 10/01/24 03:00 61 16 122/84 95 10/01/24 02:42 67 13 116/77 95 O2 Del Method 10/01/24 14:20 10/01/24 11:37 Room Air 10/01/24 08:40 10/01/24 08:40 Room Air 10/01/24 08:40 Room Air 10/01/24 07:29 Room Air 10/01/24 06:57 10/01/24 06:00 10/01/24 05:00 10/01/24 04:00 10/01/24 03:00 10/01/24 02:42 Laboratory Results Abnormal lab results 09/30/24 10/01/24 10/01/24 Range/Units 22:30 04:20 06:17 WBC 20.37 H 16.05 H (4.8-10.8) K/ul RBC 3.46 L 3.19 L (4.70-6.10) M/uL Hgb 12.0 L 11.2 L (14.0-18.0) g/dl Hct 35.5 L 32.6 L (42.0-52.0) % MCV 102.6 H 102.2 H (80.0-100.0) fL MCH 34.7 H 35.1 H (25.0-34.0) pg RDW Std Deviation 65.3 H 65.1 H (36.4-46.3) fL RDW Coeff of Kuldeep 17.6 H 17.3 H (11.5-14.5) % Plt Count 110 L 100 L (130-400) K/uL Neut # (Auto) 19.02 H 14.95 H (1.40-6.50) K/uL Lymph # (Auto) 0.25 L 0.23 L (1.20-3.40) K/uL Alcorn # (Auto) 0.62 H 0.68 H (0.11-0.59) K/uL Immature Gran # (Auto) 0.33 H (0.01-0.20) K/uL PT 12.4 H (9.0-12.0) Seconds INR 1.2 H (0.9-1.1) Sodium 134 L (136-145) mmol/L Chloride 97 L 96 L (98-107) mmol/L Carbon Dioxide 33 H 33 H (21-32) mmol/L BUN 36 H 29 H (6-23) mg/dl BUN/Creatinine Ratio 46.8 H 47.5 H (10-20) Glucose 135 H 127 H (70-99(Fasting)) mg/dl Calcium 8.4 L 8.4 L (8.6-10.3) mg/dl Alkaline Phosphatase 121 H (34-104) U/L Troponin I High Sens 26.1 H 22.5 H (0-20) pg/ml Total Protein 5.1 L (6.0-8.3) gm/dl Albumin 3.1 L (3.4-5.0) gm/dl Globulin 2.0 L (2.5-4.0) gm/dl Ur Specific Britton > 1.045 H (1.000-1.030) Diagnostic Findings CT head - Unremarkable
[2024-10-01 14:43] LABS: Folate (Folic Acid),Ser orPlas > 22.30 ng/ml (>5.38)
[2024-10-01 14:44] LABS: Vitamin B12 > 1500 pg/ml (180-914)
[2024-10-01] MEDS: LORazepam 0.5 MG TAB PO PRN (20:44)
[2024-10-02 07:55] VITALS: BP 116/72; RESP 16; TEMP 97.9; O2SAT 93
--- NOTE | 2024-10-02 10:20 | Magnetic Resonance Report ---
MRI OF THE LUMBAR SPINE WITHOUT CONTRAST CLINICAL HISTORY: Bilateral lower extremity weakness. Lumbar pain. Lung cancer. COMPARISON STUDY: PET/CTs December 15, 2022 and September 06, 2023. TECHNIQUE: Utilizing a 3 Sherry magnet and dedicated coil, multiplanar, multiecho imaging of the lumb ar spine was performed without IV contrast. FINDINGS: For purposes of numbering on this exam, the L5-S1 disc space is assigned to axial image 28 of 32. The re is mild lumbar spine levoscoliosis. L5 vertebral body fracture with 60% loss of vertebral body hei ght anteriorly was shown on PET/CT of September 06, 2023. Increased T2 and decreased T1 signal within the L 5 vertebral body is present. An L4 vertebral body fracture is new since MRI of September 06, 2023 with 40% loss of vertebral body height. There is no retropulsion. Signal abnormality extends along the superio r endplate of L4 without extension into the posterior elements. The appearance favors a benign compre ssion fracture. A 4 cm medial left iliac bone lesion was FDG avid on PET/CT of December 15, 2022. Th is was not FDG avid on PET/CT of September 06, 2023. No additional lesions are identified. Increased T1 mar row signal within the lower lumbar spine and visualized portions of the sacrum may be related to radi ation therapy. There is mild T2 hyperintensity within the paraspinal musculature of the lumbar spine without fluid collection. There is no intracanalicular mass or fluid collection. The conus terminates at the upper L1 level. A 1.9 cm T2 hyperintense left renal lesion is suboptimally assessed on unenha nced exam but favors a cyst. Moderate multilevel degenerative changes within the lumbar spine are pre sent. L1-2: There is moderate disc space narrowing with facet arthrosis. Minimal posterior disc osteophyte complex. The central canal is patent. There is mild bilateral neural foraminal stenosis. L2-3: There is mild disc space narrowing with minimal posterior disc osteophyte complex and mild face t arthrosis. The central canal is patent. The neural foramen are patent. L3-4: There is moderate disc space narrowing with disc bulge. Facet arthrosis is present. A 0.9 x 0.4 cm cystic focus along the medial aspect of the right facet joints favors a small synovial cyst. Ther e is no significant central canal stenosis. Neural foramen are patent. L4-5: There is moderate to space narrowing with facet arthrosis. There is mild disc bulge. There is m ild central canal stenosis. Moderate right and mild left neural foraminal stenosis is present. L5-S1: Central canal is patent. There is severe right and moderate left neural foraminal stenosis. Th ere is moderate facet arthrosis. IMPRESSION: 1. L4 vertebral body fracture with 40% loss of vertebral body height with mild associated marrow qamar a. This is age indeterminate but new since PET/CT of September 06, 2023 and favors a subacute fracture. The appearance favors a benign compression fracture. Given the clinical history, a pathologic fracture c annot be excluded but is considered less likely. 2. Old L5 vertebral body fracture which is similar to PET/CT of September 06, 2023 underlying signal abnorm ality within the vertebral body. This may represent a treated metastasis with multiple pathologic fra cture. 3. 4 cm left iliac bone lesion. This is consistent with a metastasis and may represent a treated lesi on when correlating with previous PET/CT. 4. Moderate multilevel degenerative changes within the lumbar spine. However, no severe central canal stenosis. Multilevel neural foraminal stenosis, as above. 5. Marrow signal abnormality within the lower lumbar and sacral spine which may be related to previou s radiation therapy. ACT 112: Negative or not required by law. Electronically signed by: Gerald Casey M.D. 10/02/2024 10:18 AM
[2024-10-02 11:51] VITALS: PULSE 79
--- NOTE | 2024-10-02 16:29 | Discharge Summary ---
Discharge Summary Date of Service October 02, 2024 Principal Dx & Hospital Course #1 = Principal Diagnosis (1) Right leg weakness: Assessment and plan below following discussion of case with ED provider and reviewing patient history/pertinent normal/abnormal diagnostic test results BL Lower extremity weakness Lung Cancer on Chemotherapy L4 Subacute Fracture Multilevel Neural Foraminal Stenosis -- CT head: no acute procress CT angio: Atherosclerotic calcific plaques are seen in bilateral proximal internal carotid arteries causing mild stenosis (20-30 percent). -- Lumbar spine MRI: 1. L4 vertebral body fracture with 40% loss of vertebral body height with mild associated marrow edema. This is age indeterminate but new since PET/CT of September 06, 2023 and favors a subacute fracture. The appearance favors a benign compression fracture. Given the clinical history, a pathologic fracture cannot be excluded but is considered less likely. 2. Old L5 vertebral body fracture which is similar to PET/CT of September 06, 2023 underlying signal abnormality within the vertebral body. This may represent a treated metastasis with multiple pathologic fracture. 3. 4 cm left iliac bone lesion. This is consistent with a metastasis and may represent a treated lesion when correlating with previous PET/CT. 4. Moderate multilevel degenerative changes within the lumbar spine. However, no severe central canal stenosis. Multilevel neural foraminal stenosis, as above. 5. Marrow signal abnormality within the lower lumbar and sacral spine which may be related to previous radiation therapy. -- [facility] Neuro consulted: Lumbar spine MRI reviewed by Dr. Hector- does NOT show any spinal compression to explain his symptoms Weakness likely from overall deconditioning and steroids -- patient wanted to be discharged LUIS ANTONIO to attend to his personal business and PET scan the next day (before official read of lumbar spine MRI) requested referral for outpatient PT/OT- watch caser assisted patient will need further work up and management of subacute L4 compression fracture and Multilevel Neural Foraminal Stenosis as outpatient, refer to Ortho spine also, further work up of bilateral ICA stenosis as outpatient Leukocytosis with new onset thrombocytopenia r/o Myelodysplastic Syndrome -- The peripheral smear is remarkable for a macrocytic anemia, thrombocytopenia, and leukocytosis. The leukocytosis appears to be reactive based on the toxic granulation of the neutrophils. However, very rare dysplastic changes are seen in the neutrophils. Given the progressive macrocytic anemia (with normal folate/B12 levels), I cannot exclude myelodysplastic syndrome and hematology/oncology referral is recommended. Please correlate clinically. -- Further work up, management, and ff up as outpatient Abnormal CT Findings No evidence of pulmonary embolism or aortic aneurysm. Mildly enlarged central pulmonary artery. Moderate cardiomegaly. An ectatic ascending aorta. Moderately severe pulmonary emphysema. Bilateral bronchial wall thickening/central tubular bronchiectasis. UIP pattern pulmonary fibrosis. Again noted suspicious pulmonary nodules as described above. Bilateral hilar small lymphadenopathy. Interval enlarged bilateral adrenal glands RT>LT concerning for metastatic disease. -- Further work up, management, and ff up as outpatient Chronic Popliteal Thrombus, Popliteal Vein A small non-occlusive echogenic thrombus with linear calcifications is seen in the right popliteal vein, likely chronic (unchanged). -- continue Eliquis Rght rotator cuff tear following trauma last month, patient follows with [facility] [place] past tobacco abuse hx CAD complete heart block status post PPM A-fib/DVT on Eliquis Chronic LBBB hypertension hyperlipidemia, on statin Rx COPD/ILD as per records, lung status at baseline metastatic NSCLC status post radiation ongoing chemotherapy Chronic anemia, hemoglobin at baseline DVT prophylaxis. Eliquis DNR plan of care discussed with patient in detail and at length all questions answered he is understanding, agreeable, comfortable with the plan of care Notes For Next Care Provider Medication Changes From Visit None Admission HPI Per Admitting Provider History obtained from patient and records. Medical history significant for CAD, complete heart block status post PPM, A- fib/DVT on Eliquis, LBBB, hypertension, hyperlipidemia, PVD, COPD/ILD as per records, DAVID, metastatic NSCLC status post radiation ongoing chemotherapy, GERD, chronic anemia (baseline hemoglobin 10-11), right rotator cuff tear, past tobacco abuse. Few days history of progressive bilateral LE weakness, right greater than the left. No headache or unusual back pain symptoms. No recollection of recent trauma. Usual bilateral leg swelling. No chest pain, or SOB. No fever, no chills. Patient consulted ER for evaluation of symptoms. 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 Admission Exam Per Admitting Provider GENERAL: Pleasant, slightly anxious, no respiratory distress SKIN: Pallor, warm HEENT: Alopecia, pale palpebral conjunctivae, no ptosis, dry buccal mucosa NECK : Supple, no tenderness CHEST : Decreased breath sounds, no tenderness HEART : RRR, no obvious murmurs ABDOMEN: Some distention, nontender EXTREMITIES : Bilateral LE swelling without tenderness (chronic as per patient), palpable pulses, no other conspicuous deformities noted NEUROLOGIC : Coherent, no facial asymmetry, MMTS 3/5 L>R, gait and stance not assessed Discharge Exam General- oriented x 3, not in distress, speaks in sentences with no effort or accessory muscle use Eyes- anicteric Neck- no JVD Lungs- clear breath sounds bilaterally, no rales/wheezes Heart- normal rate, regular rhythm; no murmurs Abdomen- normal bowel sounds, nondistended, soft, nontender Extremities- no pretibial edema, no calf tenderness Neuro- alert, oriented x 3; strength UE: 5/5, LE: 3/4 on the right 4 on the left, LE sensation 90% Skin- warm & dry Updated Medication List Medication Instructions Recorded Confirmed Type apixaban 5 mg (74 tabs) tablets in 5 mg PO BID 10/01/24 10/01/24 History a dose pack (Eliquis) atorvastatin 40 mg tablet 40 mg PO QAM 10/01/24 10/01/24 History fluticasone fur. 100 mcg-umeclid 1 inh inhalation UD 10/01/24 10/01/24 History 62.5 mcg-vilant 25 mcg inhalat.powder (Trelegy Ellipta) metoprolol succinate 25 mg 25 mg PO QAM 10/01/24 10/01/24 History tablet,extended release 24 hr multivitamin 1 tab PO QAM 10/01/24 10/01/24 History mupirocin 2 % topical ointment 1 applic topical TID 10/01/24 10/01/24 History Hospital Stay Data Consultations 10/01/24 02:25 ED Decision to Admit Stat 10/01/24 13:40 Consult Neurology Routine Diagnostic Imagining Performed Laboratory Results WBC 16.05 K/ul (4.8-10.8) H 10/01/24 06:17 RBC 3.19 M/uL (4.70-6.10) L 10/01/24 06:17 Hgb 11.2 g/dl (14.0-18.0) L 10/01/24 06:17 Hct 32.6 % (42.0-52.0) L 10/01/24 06:17 MCV 102.2 fL (80.0-100.0) H 10/01/24 06:17 MCH 35.1 pg (25.0-34.0) H 10/01/24 06:17 MCHC 34.4 g/dL (32.0-36.0) 10/01/24 06:17 RDW Std Deviation 65.1 fL (36.4-46.3) H 10/01/24 06:17 RDW Coeff of Kuldeep 17.3 % (11.5-14.5) H 10/01/24 06:17 Plt Count 100 K/uL (130-400) L 10/01/24 06:17 MPV 9.8 fL (9.4-12.4) 10/01/24 06:17 Immature Gran % (Auto) 0.9 % 10/01/24 06:17 Neut % (Auto) 93.3 % 10/01/24 06:17 Lymph % (Auto) 1.4 % 10/01/24 06:17 [place] % (Auto) 4.2 % 10/01/24 06:17 Eos % (Auto) 0.0 % 10/01/24 06:17 Baso % (Auto) 0.2 % 10/01/24 06:17 Neut # (Auto) 14.95 K/uL (1.40-6.50) H 10/01/24 06:17 Lymph # (Auto) 0.23 K/uL (1.20-3.40) L 10/01/24 06:17 [place] # (Auto) 0.68 K/uL (0.11-0.59) H 10/01/24 06:17 Eos # (Auto) 0.00 K/uL (0.00-0.50) 10/01/24 06:17 Baso # (Auto) 0.04 K/uL (0.00-0.20) 10/01/24 06:17 Immature Gran # (Auto) 0.15 K/uL (0.01-0.20) 10/01/24 06:17 Toxic Granulation 2+ 10/01/24 06:17 Polychromasia 1+ 10/01/24 06:17 Peripher Smr Path Cons 10/01/24 06:17 PT 12.4 Seconds (9.0-12.0) H 09/30/24 22:30 INR 1.2 (0.9-1.1) H 09/30/24 22:30 Sodium 134 mmol/L (136-145) L 10/01/24 06:17 Potassium 4.0 mmol/L (3.5-5.1) 10/01/24 06:17 Chloride 96 mmol/L (98-107) L 10/01/24 06:17 Carbon Dioxide 33 mmol/L (21-32) H 10/01/24 06:17 Anion Gap 5 (3-11) 10/01/24 06:17 BUN 29 mg/dl (6-23) H 10/01/24 06:17 Creatinine 0.61 mg/dl (0.6-1.4) 10/01/24 06:17 Est Cr Clr Drug Dosing 105.3 ml/min 10/01/24 06:17 eGFR 100.79 10/01/24 06:17 BUN/Creatinine Ratio 47.5 (10-20) H 10/01/24 06:17 Glucose 127 mg/dl (70-99(Fasting)) H 10/01/24 06:17 Estimat Average Glucose 111 mg/dl 10/01/24 06:17 Hemoglobin A1c 5.5 % (4.5-5.6) 10/01/24 06:17 Calcium 8.4 mg/dl (8.6-10.3) L 10/01/24 06:17 Magnesium 1.9 mg/dl (1.7-2.4) 09/30/24 22:30 Total Bilirubin 0.9 mg/dl (0.2-1.0) 09/30/24 22:30 AST 22 U/L (13-39) 09/30/24 22:30 ALT 23 U/L (7-52) 09/30/24 22:30 Alkaline Phosphatase 121 U/L (34-104) H 09/30/24 22:30 Total Creatine Kinase 55 U/L (30-223) 10/01/24 06:17 Troponin I High Sens 22.5 pg/ml (0-20) H 10/01/24 06:17 Total Protein 5.1 gm/dl (6.0-8.3) L 09/30/24 22:30 Albumin 3.1 gm/dl (3.4-5.0) L 09/30/24 22:30 Globulin 2.0 gm/dl (2.5-4.0) L 09/30/24 22:30 Albumin/Globulin Ratio 1.6 (0.9-2) 09/30/24 22:30 Triglycerides 93 mg/dl (0-150) 10/01/24 06:17 Cholesterol 93 mg/dl (0-200) 10/01/24 06:17 LDL Cholesterol, Calc 35 mg/dl 10/01/24 06:17 VLDL Cholesterol, Calc 19 mg/dl (0-30) 10/01/24 06:17 HDL Cholesterol 39 mg/dl 10/01/24 06:17 Cholesterol/HDL Ratio 2.4 (0-5) 10/01/24 06:17 Vitamin B12 > 1500 pg/ml (180-914) H 10/01/24 06:17 Folate > 22.30 ng/ml (>5.38) 10/01/24 06:17 Procalcitonin 0.06 ng/ml (0-0.5) 09/30/24 22:30 TSH 1.002 uIu/ml (0.300-4.500) 09/30/24 22:30 Urine Color Yellow 10/01/24 04:20 Urine Appearance Clear (Clear) 10/01/24 04:20 Urine pH 7.5 (4.5-7.5) 10/01/24 04:20 Ur Specific [place] > 1.045 (1.000-1.030) H 10/01/24 04:20 Urine Protein Negative (Negative) 10/01/24 04:20 Urine Glucose (UA) Negative (Negative) 10/01/24 04:20 Urine Ketones Negative (Negative) 10/01/24 04:20 Urine Blood Negative (Negative) 10/01/24 04:20 Urine Nitrite Negative (Negative) 10/01/24 04:20 Urine Bilirubin Negative (Negative) 10/01/24 04:20 Urine Urobilinogen Negative (Negative) 10/01/24 04:20 Ur Leukocyte Esterase Negative (Negative) 10/01/24 04:20 Urine Comment 10/01/24 04:20 Impressions Chest CTA 09/30/24 22:07 Exam(s): CTA CHEST IV Amt: 120 ml EXAM: CT Angiography Chest With Intravenous Contrast CLINICAL HISTORY: Reason for exam: Eval for PE. TECHNIQUE: Axial computed tomographic angiography images of the chest with intravenous contrast. CTDI is 16.62 mGy and DLP is 526.45 mGy-cm. Automated exposure control was utilized for the study. A dose lowering technique was utilized adhering to the principles of ALARA. MIP reconstructed images were created and reviewed. COMPARISON: CT chest: 12/11/2022 FINDINGS: Motion-induced image degradation. Pulmonary arteries: A mildly enlarged right central pulmonary artery: 31 mm in diameter. No pulmonary embolism. Aorta: No acute findings. Calcified atheromatous plaques. An ectatic ascending aorta: 41 mm in diameter. No thoracic aortic aneurysm. Heart: Left subclavian pacemaker with intracardiac electrode leads. Moderate cardiomegaly. No significant pericardial effusion. No evidence of RV dysfunction. Lungs: Bilateral bronchial wall thickening/tubular bronchiectasis. Upper lobes dominant moderately severe centrilobular emphysema. Demonstrates diffuse subpleural reticulation and predominantly bibasilar honeycombing with traction bronchiectasis, compatible with usual interstitial pneumonia pattern fibrosis. A 2.3 x 1.7 cm spiculated mass versus previously 4.3 x 3.5 cm seen in the left lower lobe posteriorly (ser 3 image 51). Again noted a 10 mm pleural-based nodule in superior segment right lower lobe posteriorly (series 3 image 59). A new 2.2 x 1. 6 cm sub-solid nodule posteriorly in the left lower lobe (series 3 image 34). Small scattered additional pulmonary nodules. Pleural space: Unremarkable. No significant effusion. No pneumothorax. Bones/joints: No acute fracture. No dislocation. Degenerative thoracic spondylosis. Soft tissues: Unremarkable. Patulous somewhat dilated air-filled thoracic esophagus. Lymph nodes: Bilateral hilar small lymphadenopathy.. Small mediastinal lymph nodes.. Other findings: Bilaterally interval enlarged adrenal glands RT>LT. IMPRESSION: No evidence of pulmonary embolism or aortic aneurysm. Mildly enlarged central pulmonary artery. Moderate cardiomegaly. An ectatic ascending aorta. Moderately severe pulmonary emphysema. Bilateral bronchial wall thickening/central tubular bronchiectasis. UIP pattern pulmonary fibrosis. Again noted suspicious pulmonary nodules as described above. Bilateral hilar small lymphadenopathy. Interval enlarged bilateral adrenal glands RT>LT concerning for metastatic disease. . Electronically signed by: Stephenie Thompson MD, VARINDERR 10/01/24 02:08 AM Venous Doppler Study 09/30/24 22:07 EXAM: US venous doppler LE CLINICAL HISTORY: Eval for DVT TECHNIQUE: Ultrasound examination of bilateral lower extremity veins was performed in real time and duplex. One or more of the following were performed: spectral analysis, resistive index, waveform analysis, and pulsed Doppler. COMPARISON: Ultrasound dated 06/02/2023. FINDINGS: Right lower extremity: A small non-occlusive echogenic thrombus with linear calcifications is seen in the right popliteal vein, measuring 3.5 mm, likely chronic (unchanged). Normal phasic, non-pulsatile, and spontaneous flow is noted in the right common femoral, superficial femoral, anterior and posterior tibial, and peroneal veins. Visualized veins of the right lower extremity demonstrate normal compressibility. No sonographic evidence of acute deep vein thrombosis (DVT) is detected in the visualized veins of the lower extremity. Compression and Augmentation: All evaluated veins compress fully with applied transducer pressure. Augmentation of venous flow is noted with distal compression. Left lower extremity: Normal phasic, non-pulsatile, and spontaneous flow is noted in the left common femoral, superficial femoral, popliteal, anterior and posterior tibial, and peroneal veins. Visualized veins of the right lower extremity demonstrate normal compressibility. No sonographic evidence of acute deep vein thrombosis (DVT) is detected in the visualized veins of the lower extremity. Compression and Augmentation: All evaluated veins compress fully with applied transducer pressure. Augmentation of venous flow is noted with distal compression. Additional Findings: Edematous changes are seen in the bilateral calf regions. IMPRESSION: 1. No sonographic evidence of acute DVT was detected in bilateral lower extremity veins. 2. A small non-occlusive echogenic thrombus with linear calcifications is seen in the right popliteal vein, likely chronic (unchanged). 3. Edematous changes are seen in the bilateral calf regions(new). Disclaimer: DVT could be missed early in the disease when the clot burden is minimal. For patients with moderate and high pretest probability of DVT and negative ultrasound, the [employer] clinical guidelines recommend testing with a D-dimer assay or repeat ultrasound in 5-7 days. If symptoms worsen, the Society of Radiologists in Ultrasound recommends repeating the ultrasound even earlier. Electronically signed by Bismark Stiles 10-01-2024 02:[address] 10/01/24 03:29 EXAM: CT head/brain wo con CLINICAL HISTORY: RLE weakness, eliquis TECHNIQUE: Multiple axial images are obtained from the skull base to the vertex without contrast. CT scan was performed according to CATRACHITA Zeeas low as reasonable achievable). COMPARISON: MR dated 12/17/2022 09:15:56 [employer]ARM [employer]. FINDINGS: Periventricular white matter ischemic changes. Rest of the brain shows normal morphology, attenuation, and volume for age. No evidence of hemorrhage, mass effect, midline shift, extra axial collection, or hydrocephalus is noted. Ventricles, sulci, and basal cisterns are symmetric and normal in size and configuration. The velasquez-white matter differentiation is preserved. Visualized paranasal sinuses and mastoid air cells are well aerated. Orbital contents are within normal limits. Bony structures are intact. IMPRESSION: 1. No acute intracranial abnormality is detected. 2. Chronic ischemic white matter changes. Electronically signed by Hank Grider 10-01-2024 05:11 AM Head CTA 10/01/24 03:37 EXAM: CT angio head w con CLINICAL HISTORY: RLE weakness TECHNIQUE: Contrast enhanced thin slice CT angiography scan of the cerebral vessels was performed with intravenous contrast. Angiographic images were processed, 3D MIP images were acquired for interpretation. Contiguous axial images were obtained. Reformatted coronal and sagittal images were also reviewed. If IV contrast material had not been administered, the likelihood of detecting abnormalities relevant to the patients condition would have been substantially decreased. CT scan was performed according to ALARA (as low as reasonable achievable). COMPARISON: - FINDINGS: Mild atherosclerotic calcification and irregularity is seen in the petrous and cavernous segment of bilateral internal carotid arteries. Their division into the anterior cerebral artery and middle cerebral artery is defined. A1, A2 and M1, M2 segments are normal on both the sides. Bilateral vertebral arteries are seen to unite the form the basilar artery in a normal fashion. Basilar artery shows normal course, caliber and opacification. Its division into the posterior cerebral arteries is defined. Bilateral P1 and P2 segments are normal. Visualized venous structures show normal opacification. No evidence of intracranial aneurysm or AV malformation is seen. IMPRESSION: 1. Mild atherosclerotic calcification and irregularity is seen in the petrous and cavernous segment of bilateral internal carotid arteries. Electronically signed by Hakn Grider 10-01-2024 05:11 AM Neck CTA 10/01/24 03:37 EXAM: CT angio neck with con CLINICAL HISTORY: RLE weakness TECHNIQUE: Contrast enhanced thin slice CT angiography scan of the carotid vessels was performed with intravenous contrast. Angiographic images were processed, 3D MIP images were acquired for interpretation.Contiguous axial images were obtained. Reformatted coronal and sagittal images were also reviewed. If IV contrast material had not been administered, the likelihood of detecting abnormalities relevant to the patients condition would have been substantially decreased. CT scan was performed according to ALARA (as low as reasonable achievable). COMPARISON: - FINDINGS: Included great vessels of the aortic arch are grossly unremarkable. Common carotid artery, carotid Bulb, internal carotid artery , and origin of the external carotid artery are well opacified. Atherosclerotic calcific plaques are seen in bilateral proximal internal carotid arteries causing mild stenosis of around 20-30 percent. Vertebral arteries are well opacified. Jugular veins are well opacified. Included lung apices are grossly unremarkable. Thyroid gland appears unremarkable. IMPRESSION: 1. Atherosclerotic calcific plaques are seen in bilateral proximal internal carotid arteries causing mild stenosis (20-30 percent). No evidence of dissection or aneurysm. Electronically signed by Hank Grider 10-01-2024 05:10 AM Lumbar Spine MRI 10/02/24 14:24 MRI OF THE LUMBAR SPINE WITHOUT CONTRAST CLINICAL HISTORY: Bilateral lower extremity weakness. Lumbar pain. Lung cancer. COMPARISON STUDY: PET/CTs December 15, 2022 and September 06, 2023. TECHNIQUE: Utilizing a 3 Sherry magnet and dedicated coil, multiplanar, multiecho imaging of the lumbar spine was performed without IV contrast. FINDINGS: For purposes of numbering on this exam, the L5-S1 disc space is assigned to axial image 28 of 32. There is mild lumbar spine levoscoliosis. L5 vertebral body fracture with 60% loss of vertebral body height anteriorly was shown on PET/CT of September 06, 2023. Increased T2 and decreased T1 signal within the L5 vertebral body is present. An L4 vertebral body fracture is new since MRI of September 06, 2023 with 40% loss of vertebral body height. There is no retropulsion. Signal abnormality extends along the superior endplate of L4 without extension into the posterior elements. The appearance favors a benign compression fracture. A 4 cm medial left iliac bone lesion was FDG avid on PET/CT of December 15, 2022. This was not FDG avid on PET/CT of September 06, 2023. No additional lesions are identified. Increased T1 marrow signal within the lower lumbar spine and visualized portions of the sacrum may be related to radiation therapy. There is mild T2 hyperintensity within the paraspinal musculature of the lumbar spine without fluid collection. There is no intracanalicular mass or fluid collection. The conus terminates at the upper L1 level. A 1.9 cm T2 hyperintense left renal lesion is suboptimally assessed on unenhanced exam but favors a cyst. Moderate multilevel degenerative changes within the lumbar spine are present. L1-2: There is moderate disc space narrowing with facet arthrosis. Minimal posterior disc osteophyte complex. The central canal is patent. There is mild bilateral neural foraminal stenosis. L2-3: There is mild disc space narrowing with minimal posterior disc osteophyte complex and mild facet arthrosis. The central canal is patent. The neural foramen are patent. L3-4: There is moderate disc space narrowing with disc bulge. Facet arthrosis is present. A 0.9 x 0.4 cm cystic focus along the medial aspect of the right facet joints favors a small synovial cyst. There is no significant central canal stenosis. Neural foramen are patent. L4-5: There is moderate to space narrowing with facet arthrosis. There is mild disc bulge. There is mild central canal stenosis. Moderate right and mild left neural foraminal stenosis is present. L5-S1: Central canal is patent. There is severe right and moderate left neural foraminal stenosis. There is moderate facet arthrosis. IMPRESSION: 1. L4 vertebral body fracture with 40% loss of vertebral body height with mild associated marrow edema. This is age indeterminate but new since PET/CT of September 06, 2023 and favors a subacute fracture. The appearance favors a benign compression fracture. Given the clinical history, a pathologic fracture cannot be excluded but is considered less likely. 2. Old L5 vertebral body fracture which is similar to PET/CT of September 06, 2023 underlying signal abnormality within the vertebral body. This may represent a treated metastasis with multiple pathologic fracture. 3. 4 cm left iliac bone lesion. This is consistent with a metastasis and may represent a treated lesion when correlating with previous PET/CT. 4. Moderate multilevel degenerative changes within the lumbar spine. However, no severe central canal stenosis. Multilevel neural foraminal stenosis, as above. 5. Marrow signal abnormality within the lower lumbar and sacral spine which may be related to previous radiation therapy. ACT 112: Negative or not required by law. Electronically signed by: Gerald Casey M.D. 10/02/2024 10:18 AM Pending Results Patient Have Any Pending Studies at Discharge: No Discharge Instructions Given to Patient (Per Discharging Provider) PLEASE CALL YOUR PRIMARY CARE PHYSICIAN OR RETURN TO THE ER IF WITH WORSENING OF SYMPTOMS, INCLUDING WEAKNESS, LEG SWELLING, FEVER/CHILLS, ETC FOLLOW UP WITH PRIMARY CARE PHYSICIAN OUTLINED ABOVE. CONTINUE OUTPATIENT PHYSICAL AND OCCUPATIONAL THERAPY. Total Time Total Time Spent Total Time Spent (In Minutes): 45 minutes
== END 2024-10-02 13:14 | disposition home or self-care (01) | DRG 552 ==
LOC: EDINP 21:46 → ED 21:46 → 2W 10-01 05:02

== ENCOUNTER 2024-10-23 00:46 | Inpatient (IN) ==
[2024-10-23 01:54] LABS: Hematocrit (blood only) 32.7 % (42.0-52.0); Hemoglobin 11.1 g/dl (14.0-18.0); Mean Corpuscular Hemoglobin 35.0 pg (25.0-34.0); Mean Corpuscular Volume 103.2 fL (80.0-100.0); Platelet Count 133 K/uL (130-400); RDW Standard Deviation 66.5 fL (36.4-46.3); Red Blood Count 3.17 M/uL (4.70-6.10); White Blood Count 27.56 K/ul (4.8-10.8)
--- NOTE | 2024-10-23 01:56 | Emergency Department Note ---
Impression & Plan Leukocytosis, Bilateral edema of lower extremity admit to the [facility] ED Provider Note NAME: COMFORT FAIRCHILD AGE: 74 SEX: Male INFORMANT: Patient ED PROVIDER(S): Lucy Ribera DO CHIEF COMPLAINT: leakage from the left lower extremity PLAN: Disposition: admit to the [facility] MEDICAL DECISION MAKING: This is a 74-year-old male patient with a history of non-small cell lung cancer on chemotherapy who presents to the emergency department with a clear liquid leaking from the left leg. patient has noticed increased swelling to the legs after starting chemotherapy. It has dramatically worsened over the past 2 days. He now has clear liquid draining from the anterior aspect of the left mid tib- fib area. patient has a known DVT in the right lower extremity for which she is on Eliquis. He does admit to increasing fatigue and weakness. Patient had his toenails removed from his great toes 2 days ago as they were falling off. laboratory studies reveal a white blood cell count of 27.5 with 92% neutrophils. Hemoglobin was 11.1 and hematocrit was 32.7. Platelet count was normal at 133. Potassium was slightly low at 3.2. BUN was 25 and creatinine was 0.6. Lactate was normal at 1.3. Procalcitonin was negative. Troponin and magnesium were both negative. BNP was elevated to 184. Chest x-ray does not show significant evidence of fluid overload. Upper respiratory bio fire testing was negative. Patient has been unable to give a urine specimen. A complete septic workup has been performed given the patient's significant white blood cell count. He was loaded with a dose of IV cefepime after blood cultures were obtained. Care/management discussed with: manager practice and [facility] Triage Nursing notes: reviewed and agree With them. Vital Signs: reviewed and unremarkable Additional History obtained from: none Chronic Medical/Social Conditions affecting care: stage IV lung cancer on chemotherapy Prior/ Outside/ External records reviewed: I did review records in the [facility] system from hematology/oncology which further characterize the DVT in the right lower extremity As well as this increasing edema noted in the legs. Differential Diagnosis: Heart failure, cellulitis, sepsis, renal failure Diagnostics, independently interpreted by me: ECG: atrial paced rhythm at a rate of [address] segment elevation or signs of ischemia. There is no ectopy. Cardiac Monitoring: Paced rhythm at a rate of 71 Imaging studies: portable chest x-ray: no acute pulmonary infiltrates or consolidation. There is no obvious sign of overwhelming heart failure as per my independent interpretation HPI: 74 year old Male arrives for evaluation of lower extremity edema . he has a history of non-small cell lung cancer on chemotherapy who presents to the emergency department with a clear liquid leaking from the left leg. patient has noticed increased swelling to the legs after starting chemotherapy. It has dramatically worsened over the past 2 days. He now has clear liquid draining from the anterior aspect of the left mid tib-fib area. PAST MEDICAL HISTORY: See Below, PAST SURGICAL HISTORY: See Below, SOCIAL HISTORY: See Below, HOME MEDICATIONS: See list ALLERGIES: none VITALS: See Below PHYSICAL EXAMINATION: HEENT: Head - normocephalic and atraumatic. Pupils are equal, round, and reactive to light. Extraocular eye muscles are intact, and sclera are anicteric. Nose - moist nasal mucosa without discharge. Mouth - Drybuccal mucosa. Oropharynx is nonerythematous and there is no tonsillar exudate or edema noted. Neck: Supple; no JVD or cervical lymphadenopathy Heart: Regular rate and rhythm. There is a normal S1 and S2 with no murmurs, clicks, or gallops appreciated. Lungs: Clear to auscultation bilaterally with no wheezes, rales, or rhonchi. Abdomen: Soft, completely nontender, nondistended, with good bowel sounds. There are no palpable pulsatile masses or hepatosplenomegaly. There is no guarding, rigidity, or rebound noted. Extremities: significant edema of the lower extremities up to the level of the knee. There is clear liquid leaking from the left anterior mid tib-fib region. There is no surrounding erythema noted. Toenails have been removed from both great toes. Skin: warm and dry with good turgor and no rashes. 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 A complete history and physical was performed. His indwelling port was accessed. Labs were drawn as above. Patient was noted to have a white blood cell count greater than 27,000. A complete septic protocol was performed Including blood cultures. He was prophylaxed with IV cefepime. A portable chest x-ray was obtained. Urinalysis was ordered. Upper respiratory bio fire testing was obtained. the patient was not given 30 mL/kg bolus for sepsis as the patient had such significant fluid overload in his legs with fluid draining from the left leg. Patient has an elevated BNP. Pressure remained in the normal range. He was not tachycardic. I discussed the case with the [facility] Hospitalist and they will evaluate for further inpatient care. Past Med/Surg History Problem List (Updated 10/23/24 @ 04:54 by Lucy Ribera DO) Bilateral edema of lower extremity (Acute) Leukocytosis (Acute) Right leg weakness Elevated troponin (Acute) Leukocytosis (Acute) Deep vein thrombosis (DVT) of right lower extremity (Acute) Weakness (Acute) Metastatic non-small cell lung cancer (Chronic) Biopsy on 11/11/22 Pain from bone metastases (Chronic) Pacemaker (Acute) Placed 09/30/22 Intermittent complete heart block (Acute) Hypertension Medical History DVT (deep venous thrombosis) Right leg LBBB (left bundle branch block) Surgical History Hx of tonsillectomy H/O right knee surgery Meniscus surgery History of surgery Lumbar spine surgery History of bronchoscopy Family History Mother , 79yo CHF (congestive heart failure) Father , 91yo Bladder cancer Brother No problems noted. Sister Lyme disease Many complications from this Daughter No problems noted. Daughter No problems noted. Daughter No problems noted. Daughter No problems noted. 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 100 mcg-umeclid 1 inh inhalation UD 10/01/24 10/23/24 62.5 mcg-vilant 25 mcg inhalat.powder (Trelegy Ellipta) metoprolol succinate 25 mg 25 mg PO QAM 10/01/24 10/23/24 tablet,extended release 24 hr multivitamin 1 tab PO QAM 10/01/24 10/23/24 acetaminophen 500 mg tablet 1,000 mg PO BID PRN Pain 10/23/24 10/23/24 calcium 600 mg (as 1 tab PO DAILY 10/23/24 10/23/24 carbonate)-vitamin D3 5 mcg (200 unit) tablet dexamethasone 4 mg tablet 4 mg PO QAM 10/23/24 10/23/24 ferrous sulfate 325 mg (65 mg 325 mg PO DAILY 10/23/24 10/23/24 iron) tablet (iron) furosemide 20 mg tablet 20 mg PO QAM 10/23/24 10/23/24 loratadine 10 mg tablet 10 mg PO DAILY PRN Congestion 10/23/24 10/23/24 Results & Data (ED) Vital Signs Vital Signs - 24 hr 10/23/24 00:48 10/23/24 01:39 10/23/24 01:39 Temperature 36.5 C Temperature Source Temporal Artery Scan Pulse Rate 86 71 71 Pulse Rate [Finger] Pulse Rate from SpO2 Sensor 71 Respiratory Rate 18 13 Respiratory Effort / Characteristics Non-Labored Spontaneous Respiratory Depth Normal Blood Pressure 100/72 101/75 Blood Pressure [Right Arm] Blood Pressure Mean 81 83 Blood Pressure Mean [Right Arm] Pulse Oximetry 96 99 Oxygen Delivery Method Room Air Sepsis Recent Fever Within 48 Hours No Sepsis New/Unexplained Change in Mental Status No Sepsis Action Taken by Nursing No Action Required 10/23/24 02:00 10/23/24 02:36 10/23/24 02:54 Temperature Temperature Source Pulse Rate 67 70 66 Pulse Rate [Finger] Pulse Rate from SpO2 Sensor 66 70 66 Respiratory Rate 19 23 16 Respiratory Effort / Characteristics Respiratory Depth Blood Pressure 105/67 116/75 106/75 Blood Pressure [Right Arm] Blood Pressure Mean 79 88 85 Blood Pressure Mean [Right Arm] Pulse Oximetry 94 95 96 Oxygen Delivery Method Sepsis Recent Fever Within 48 Hours Sepsis New/Unexplained Change in Mental Status Sepsis Action Taken by Nursing 10/23/24 04:00 10/23/24 04:43 Temperature Temperature Source Pulse Rate Pulse Rate [Finger] 70 63 Pulse Rate from SpO2 Sensor Respiratory Rate 16 18 Respiratory Effort / Characteristics Respiratory Depth Blood Pressure Blood Pressure [Right Arm] 120/79 123/81 Blood Pressure Mean Blood Pressure Mean [Right Arm] 92 95 Pulse Oximetry 100 95 Oxygen Delivery Method Room Air Room Air Sepsis Recent Fever Within 48 Hours Sepsis New/Unexplained Change in Mental Status Sepsis Action Taken by Nursing Laboratory Data 10/23/24 00:13 10/23/24 00:13 Lab Results 10/23/24 10/23/24 10/23/24 Range/Units 00:13 02:07 02:15 WBC 27.56 H (4.8-10.8) K/ul RBC 3.17 L (4.70-6.10) M/uL Hgb 11.1 L (14.0-18.0) g/dl Hct 32.7 L (42.0-52.0) % MCV 103.2 H (80.0-100.0) fL MCH 35.0 H (25.0-34.0) pg MCHC 33.9 (32.0-36.0) g/dL RDW Std Deviation 66.5 H (36.4-46.3) fL RDW Coeff of Kuldeep 17.8 H (11.5-14.5) % Plt Count 133 (130-400) K/uL MPV 10.0 (9.4-12.4) fL Immature Gran % (Auto) 2.2 % Neut % (Auto) 92.8 % Lymph % (Auto) 1.1 % Sheridan % (Auto) 3.3 % Eos % (Auto) 0.0 % Baso % (Auto) 0.6 % Neut # (Auto) 25.57 H (1.40-6.50) K/uL Lymph # (Auto) 0.30 L (1.20-3.40) K/uL Sheridan # (Auto) 0.92 H (0.11-0.59) K/uL Eos # (Auto) 0.00 (0.00-0.50) K/uL Baso # (Auto) 0.16 (0.00-0.20) K/uL Immature Gran # (Auto) 0.61 H (0.01-0.20) K/uL Dohle Bodies 1+ Polychromasia 1+ Sodium 135 L (136-145) mmol/L Potassium 3.2 L (3.5-5.1) mmol/L Chloride 95 L (98-107) mmol/L Carbon Dioxide 34 H (21-32) mmol/L Anion Gap 6 (3-11) BUN 25 H (6-23) mg/dl Creatinine 0.66 (0.6-1.4) mg/dl Est Cr Clr Drug Dosing Not Reportable eGFR 98.42 BUN/Creatinine Ratio 37.9 H (10-20) Glucose 134 H (70-99(Fasting)) mg/dl Lactate 1.3 (0.4-2.0) mmol/L Calcium 8.5 L (8.6-10.3) mg/dl Magnesium 1.7 (1.7-2.4) mg/dl Total Bilirubin 1.0 (0.2-1.0) mg/dl AST 22 (13-39) U/L ALT 23 (7-52) U/L Alkaline Phosphatase 136 H (34-104) U/L Troponin I High Sens 15.1 (0-20) pg/ml B-Natriuretic Peptide 184 H (0-100) pg/ml Total Protein 5.6 L (6.0-8.3) gm/dl Albumin 3.1 L (3.4-5.0) gm/dl Globulin 2.5 (2.5-4.0) gm/dl Albumin/Globulin Ratio 1.2 (0.9-2) Procalcitonin 0.09 (0-0.5) ng/ml Adenovirus (PCR) Not Detected (NotDetected) B. pertussis DNA (PCR) Not Detected (NotDetected) B.parapertussis DNA PCR Not Detected (NotDetected) C. pneumoniae DNA (PCR) Not Detected (NotDetected) Coronavirus OC43 (PCR) Not Detected (NotDetected) Coronavirus HKU1 (PCR) Not Detected (NotDetected) Coronavirus 229E (PCR) Not Detected (NotDetected) SARS-CoV-2 (PCR) Not Detected (NotDetected) Coronavirus NL63 (PCR) Not Detected (NotDetected) Human Metapneumovir PCR Not Detected (NotDetected) Influenza Type A (PCR) Not Detected (NotDetected) Influenza Type B (PCR) Not Detected (NotDetected) M. pneumoniae (PCR) Not Detected (NotDetected) Parainfluenza 1 (PCR) Not Detected (NotDetected) Parainfluenza 2 (PCR) Not Detected (NotDetected) Parainfluenza 3 (PCR) Not Detected (NotDetected) Parainfluenza 4 (PCR) Not Detected (NotDetected) RSV (PCR) Not Detected (NotDetected) Entero/Rhino (PCR) Not Detected (NotDetected) Administered Medications Discontinued Medications Cefepime HCl (Maxipime 2000mg) 2,000 mg in 20 mls @ 5 mls/min IV NOW STA; Protocol Stop: 10/23/24 02:13 Last Admin: 10/23/24 02:39 Dose: 5 mls/min Documented By: OSIRIS Potassium Chloride (Potassium Chloride Crtab 20 Meq Tabcr) 40 meq PO NOW STA Stop: 10/23/24 03:52 Last Admin: 10/23/24 04:19 Dose: 40 meq Documented By: LAF Imaging Data Radiologist's Impression: Chest X-Ray 10/23/24 01:39 EXAM: XR chest 1V portable CLINICAL HISTORY: extremity swelling TECHNIQUE: An X-ray image of the chest is obtained in AP projection. COMPARISON: CR 12/05/2023. FINDINGS: Pulmonary Parenchyma: Right central venous line with its tip in the superior vena cava. Chronic interstitial thickening and emphysema persist. No evidence of consolidation. A 1.8 cm right mid-lung zone nodule is again noted. A small left infrahilar density/mass persists. Destructive left second rib lesion, adjacent pleural soft tissue thickening remains unchanged. No evidence of pleural effusion. Heart and Mediastinum: The heart remains mildly enlarged. No mediastinal widening or masses. No hilar or mediastinal lymphadenopathy. left-sided dual-chamber pacemaker again noted. Bony Thorax: Bony thorax appears intact without fractures or deformities. Destructive left second rib lesion. Soft Tissues: Soft tissues overlying the chest wall are unremarkable. IMPRESSION: 1. No acute cardiopulmonary abnormalities are identified. 2. Emphysema and chronic interstitial thickening. Stable 3. Right lower zone and left lower zone pulmonary nodules. Stable. 4. Destructive left second rib lesion, unchanged. Electronically signed by Bismark Stiles 10-23-2024 02:39 AM Discharge Plan Visit Data Chief Complaint: Edema To Extremity Stated Complaint: LEGS SWOLLEN ED Provider: Lucy Ribera Discharge Problem: Leukocytosis, Bilateral edema of lower extremity Patient Disposition: Admitted As Inpatient Condition: Serious Discharge Instructions Interventions: ED Discharge Assessment Last Done: 10/23/24 04:44 Forms Stand Alone Forms: My [facility] [email or web address] Prescriptions Prescriptions: No Action metoprolol succinate 25 mg tablet extended release 24 hr 25 mg PO QAM atorvastatin 40 mg tablet 40 mg PO QAM Eliquis 5 mg (74 tabs) tablets,dose pack 5 mg PO BID multivitamin Tablet 1 tab PO QAM Trelegy Ellipta 100-62.5-25 mcg blister with device 1 inh INHALATION UD calcium carbonate-vitamin D3 [Calcium + D] 600 mg-5 mcg (200 unit) Tablet 1 tab PO DAILY ferrous sulfate [iron] 325 mg (65 mg iron) Tablet 325 mg PO DAILY dexamethasone 4 mg tablet 4 mg PO QAM furosemide 20 mg tablet 20 mg PO QAM loratadine 10 mg Tablet 10 mg PO DAILY PRN (Reason: Congestion) acetaminophen 500 mg Tablet 1,000 mg PO BID PRN (Reason: Pain) Referrals Referrals: Tito Valenzuela DO [Primary Care Provider] -
[2024-10-23 02:02] LABS: Alanine Aminotransferase 23 U/L (7-52); Albumin Globulin Ratio 1.2 (0.9-2); Alkaline Phosphatase 136 U/L (34-104); Anion Gap 6 (3-11); Bilirubin,Total 1.0 mg/dl (0.2-1.0); Blood Urea Nitrogen 25 mg/dl (6-23); Calcium 8.5 mg/dl (8.6-10.3); Carbon Dioxide 34 mmol/L (21-32); Chloride 95 mmol/L (98-107); Globulin 2.5 gm/dl (2.5-4.0); Glucose 134 mg/dl (70-99(Fasting)); Potassium 3.2 mmol/L (3.5-5.1); Sodium 135 mmol/L (136-145); Total Protein 5.6 gm/dl (6.0-8.3)
[2024-10-23 02:18] LABS: Dohle Bodies 1+; Immature Granulocytes # (auto) 0.61 K/uL (0.01-0.20); Immature Granulocytes % (auto) 2.2 %; Polychromasia 1+
[2024-10-23] MEDS: CEFEPIME 2000MG 2,000 MG/20 ML SYR IV STA (02:39)
--- NOTE | 2024-10-23 02:39 | XRay Report ---
EXAM: XR chest 1V portable CLINICAL HISTORY: extremity swelling TECHNIQUE: An X-ray image of the chest is obtained in AP projection. COMPARISON: CR 12/05/2023. FINDINGS: Pulmonary Parenchyma: Right central venous line with its tip in the superior vena cava. Chronic interstitial thickening and emphysema persist. No evidence of consolidation. A 1.8 cm right mid-lung zone nodule is again noted. A small left infrahilar density/mass persists. Destructive left second rib lesion, adjacent pleural soft tissue thickening remains unchanged. No evidence of pleural effusion. Heart and Mediastinum: The heart remains mildly enlarged. No mediastinal widening or masses. No hilar or mediastinal lymphadenopathy. left-sided dual-chamber pacemaker again noted. Bony Thorax: Bony thorax appears intact without fractures or deformities. Destructive left second rib lesion. Soft Tissues: Soft tissues overlying the chest wall are unremarkable. IMPRESSION: 1. No acute cardiopulmonary abnormalities are identified. 2. Emphysema and chronic interstitial thickening. Stable 3. Right lower zone and left lower zone pulmonary nodules. Stable. 4. Destructive left second rib lesion, unchanged. Electronically signed by Bismark Stiles 10-23-2024 02:39 AM
[2024-10-23 02:52] LABS: Magnesium 1.7 mg/dl (1.7-2.4)
[2024-10-23 03:28] LABS: Chlamydia pneumoniae PCR Not Detected (NotDetected); Coronavirus 229E PCR Not Detected (NotDetected); Coronavirus CoV-2 (COVID19)PCR Not Detected (NotDetected); Coronavirus HKU1 PCR Not Detected (NotDetected); Coronavirus NL63 PCR Not Detected (NotDetected); Coronavirus OC43PCR Not Detected (NotDetected); Human Metapneumovirus PCR Not Detected (NotDetected); Parainfluenza Virus 1 PCR Not Detected (NotDetected); Parainfluenza Virus 2 PCR Not Detected (NotDetected); Parainfluenza Virus 3 PCR Not Detected (NotDetected); Parainfluenza Virus 4 PCR Not Detected (NotDetected); Respiratory Syncytial VirusPCR Not Detected (NotDetected); Rhinovirus/Enterovirus PCR Not Detected (NotDetected)
[2024-10-23] MEDS: POTASSIUM CHLORIDE CRTAB 20 MEQ TABCR PO STA (04:19)
[2024-10-23] MEDS ORDERED: NITROGLYCERIN SL 0.4 MG/TAB TAB SL PRN (05:28)
[2024-10-23] MEDS ORDERED: ACETAMINOPHEN 325 MG TAB PO PRN (05:28)
[2024-10-23] MEDS ORDERED: POLYETHYLENE (MIRALAX) 17 GM PACK PO PRN (05:28)
--- NOTE | 2024-10-23 05:29 | History & Physical Report ---
Date of Service October 23, 2024 Assessment & Plan (1) Bilateral edema of lower extremity: Plan: 74-year-old male with past medical history significant for dyslipidemia, COPD, pulmonary fibrosis, sleep apnea, paroxysmal atrial fibrillation, hypertension, left bundle branch block, history of CAD, history of complete heart block status post permanent pacemaker, 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 Patient states since his chemo he has lower extremity edema. Lower extremity edema has been chronic. But last few days bilateral lower extremity got worse. The distal part of the left leg started draining fluid which made him come to the ER. Denies any fevers. Ambulates with a walker. Lives alone. Daughter lives next door. Appetite is not great. Denies chest pain or shortness of breath. No cough. No abdominal pain. Somewhat constipated. Micturating okay. No headache or runny nose or sore throat. Hemodynamics are okay. He was in the hospital in end of September 2024 for bilateral lower extremity weakness. Currently his chemo is on hold.Recently his toenails also got removed as they got loose from chemo Bilateral edema of lower extremity Chronic but got worse lately Also left leg was draining Received cefepime in the ER Will continue with Rocephin We also check Dopplers Continue home Lasix for now Echo from February 2024 shows EF of 50% Will update the echo Leukocytosis WBC 27 Was elevated during last admission also and seems as per peripheral smear appears to be reactive but there is a rare dysplastic changes neutrophils cannot exclude myelodysplasia syndrome and heme-onc referral recommended On Decadron Recently his toenails were removed because they became loose from chemo. Mild erythema changes in toes seen Will follow the cultures Follow-up with heme-onc COPD Pulmonary fibrosis Continue home inhalers A-fib On metoprolol succinate and Eliquis Chronic right popliteal thrombus On Eliquis Complete heart block status post PPM Chronic bundle-branch block Hypertension On metoprolol succinate and diuretics Hyperlipidemia On statin Chronic anemia Hemoglobin 11.1 Metastatic non-small cell lung cancer So far received 3 lines of chemo treatment for lung cancer PET scan on 10/04/2024 showed mildly increased size and metabolic activity of the left lower lobe nodule without any evidence of new disease and persistent hypermetabolic activity of the bilateral adrenal glands which have enlarged Currently not on any chemo. Per heme/onco :Plan to follow CBC and CMP.And plan to repeat PET scan in 3 months Following with heme-onc DVT prophylaxis On Eliquis Disposition Med/telemetry CODE STATUS full code if there is chance of recovery as per my discussion the patient History of Present Illness Chief Complaint: Bilateral lower extremity edema and left leg weeping Primary Care Provider: Tito Valenzuela DO 74-year-old male with past medical history significant for dyslipidemia, COPD, pulmonary fibrosis, sleep apnea, paroxysmal atrial fibrillation, hypertension, left bundle branch block, history of CAD, history of complete heart block status post permanent pacemaker, 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 Patient states since his chemo he has lower extremity edema. Lower extremity edema has been chronic. But last few days bilateral lower extremity got worse. The distal part of the left leg started draining fluid which made him come to the ER. Denies any fevers. Ambulates with a walker. Lives alone. Daughter lives next door. Appetite is not great. Denies chest pain or shortness of breath. No cough. No abdominal pain. Somewhat constipated. Micturating okay. No headache or runny nose or sore throat. Hemodynamics are okay. He was in the hospital in end of September 2024 for bilateral lower extremity weakness. Currently his chemo is on hold.Recently his toenails also got removed as they got loose from chemo Past medical history. As mentioned above Past surgical history. Bronchoscopy. Pacemaker insertion. Social history. Smoked seems for 1 or 2 years. No alcohol use. No drug use. Family history. Mother had lung disorder. Allergies Allergy/AdvReac Type Severity Reaction Status Date / Time No Known Allergies Allergy Verified 10/23/24 01:37 Home Medications Medication Instructions Recorded Confirmed Type apixaban 5 mg (74 tabs) tablets in 5 mg PO BID 10/01/24 10/23/24 History a dose pack (Eliquis) atorvastatin 40 mg tablet 40 mg PO QAM 10/01/24 10/23/24 History fluticasone fur. 100 mcg-umeclid 1 inh inhalation UD 10/01/24 10/23/24 History 62.5 mcg-vilant 25 mcg inhalat.powder (Trelegy Ellipta) metoprolol succinate 25 mg 25 mg PO QAM 10/01/24 10/23/24 History tablet,extended release 24 hr multivitamin 1 tab PO QAM 10/01/24 10/23/24 History acetaminophen 500 mg tablet 1,000 mg PO BID PRN Pain 10/23/24 10/23/24 History calcium 600 mg (as 1 tab PO DAILY 10/23/24 10/23/24 History carbonate)-vitamin D3 5 mcg (200 unit) tablet dexamethasone 4 mg tablet 4 mg PO QAM 10/23/24 10/23/24 History ferrous sulfate 325 mg (65 mg 325 mg PO DAILY 10/23/24 10/23/24 History iron) tablet (iron) furosemide 20 mg tablet 20 mg PO QAM 10/23/24 10/23/24 History loratadine 10 mg tablet 10 mg PO DAILY PRN Congestion 10/23/24 10/23/24 History Past Med/Surg History Problem List (Updated 10/23/24 @ 04:54 by Lucy Ribera DO) Bilateral edema of lower extremity (Acute) Leukocytosis (Acute) Right leg weakness Elevated troponin (Acute) Leukocytosis (Acute) Deep vein thrombosis (DVT) of right lower extremity (Acute) Weakness (Acute) Metastatic non-small cell lung cancer (Chronic) Biopsy on 11/11/22 Pain from bone metastases (Chronic) Pacemaker (Acute) Placed 09/30/22 Intermittent complete heart block (Acute) Hypertension Medical History DVT (deep venous thrombosis) Right leg LBBB (left bundle branch block) Surgical History Hx of tonsillectomy H/O right knee surgery Meniscus surgery History of surgery Lumbar spine surgery History of bronchoscopy Family History Mother , 79yo CHF (congestive heart failure) Father , 91yo Bladder cancer Brother No problems noted. Sister Lyme disease Many complications from this Daughter No problems noted. Daughter No problems noted. Daughter No problems noted. Daughter No problems noted. 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 Head- atraumatic Eyes- PERRL ENT- oropharynx clear Neck- supple, no JVD. Lungs- clear to auscultation mild bibasilar crackles, no wheezing Heart- regular rhythm; no murmur, no gallop. Abdomen- normal bowel sounds, soft, nontender, no distension Extremities- b/l lower extremity gross edema, small opening seen in distal perez of left leg. Mild erythema changes in toes Neuro- alert, oriented ; PERRL, no facial palsy; no dysarthria; moves extremities Results & Data Results & Data Vital Signs (Past 12 Hours) Vital Signs Temp Pulse Resp BP Pulse Ox O2 Del Method 10/23/24 02:54 66 16 106/75 96 10/23/24 02:36 70 23 116/75 95 10/23/24 02:00 67 19 105/67 94 10/23/24 01:39 71 13 101/75 99 10/23/24 01:39 71 10/23/24 00:48 36.5 C 86 18 100/72 96 Room Air Diagnostic Findings Laboratory Results WBC 27.56 K/ul (4.8-10.8) H 10/23/24 00:13 RBC 3.17 M/uL (4.70-6.10) L 10/23/24 00:13 Hgb 11.1 g/dl (14.0-18.0) L 10/23/24 00:13 Hct 32.7 % (42.0-52.0) L 10/23/24 00:13 MCV 103.2 fL (80.0-100.0) H 10/23/24 00:13 MCH 35.0 pg (25.0-34.0) H 10/23/24 00:13 MCHC 33.9 g/dL (32.0-36.0) 10/23/24 00:13 RDW Std Deviation 66.5 fL (36.4-46.3) H 10/23/24 00:13 RDW Coeff of Kuldeep 17.8 % (11.5-14.5) H 10/23/24 00:13 Plt Count 133 K/uL (130-400) 10/23/24 00:13 MPV 10.0 fL (9.4-12.4) 10/23/24 00:13 Immature Gran % (Auto) 2.2 % 10/23/24 00:13 Neut % (Auto) 92.8 % 10/23/24 00:13 Lymph % (Auto) 1.1 % 10/23/24 00:13 [place] % (Auto) 3.3 % 10/23/24 00:13 Eos % (Auto) 0.0 % 10/23/24 00:13 Baso % (Auto) 0.6 % 10/23/24 00:13 Neut # (Auto) 25.57 K/uL (1.40-6.50) H 10/23/24 00:13 Lymph # (Auto) 0.30 K/uL (1.20-3.40) L 10/23/24 00:13 [place] # (Auto) 0.92 K/uL (0.11-0.59) H 10/23/24 00:13 Eos # (Auto) 0.00 K/uL (0.00-0.50) 10/23/24 00:13 Baso # (Auto) 0.16 K/uL (0.00-0.20) 10/23/24 00:13 Immature Gran # (Auto) 0.61 K/uL (0.01-0.20) H 10/23/24 00:13 Dohle Bodies 1+ 10/23/24 00:13 Polychromasia 1+ 10/23/24 00:13 Sodium 135 mmol/L (136-145) L 10/23/24 00:13 Potassium 3.2 mmol/L (3.5-5.1) L 10/23/24 00:13 Chloride 95 mmol/L (98-107) L 10/23/24 00:13 Carbon Dioxide 34 mmol/L (21-32) H 10/23/24 00:13 Anion Gap 6 (3-11) 10/23/24 00:13 BUN 25 mg/dl (6-23) H 10/23/24 00:13 Creatinine 0.66 mg/dl (0.6-1.4) 10/23/24 00:13 Est Cr Clr Drug Dosing Not Reportable 10/23/24 00:13 eGFR 98.42 10/23/24 00:13 BUN/Creatinine Ratio 37.9 (10-20) H 10/23/24 00:13 Glucose 134 mg/dl (70-99(Fasting)) H 10/23/24 00:13 Lactate 1.3 mmol/L (0.4-2.0) 10/23/24 02:15 Calcium 8.5 mg/dl (8.6-10.3) L 10/23/24 00:13 Magnesium 1.7 mg/dl (1.7-2.4) 10/23/24 02:15 Total Bilirubin 1.0 mg/dl (0.2-1.0) 10/23/24 00:13 AST 22 U/L (13-39) 10/23/24 00:13 ALT 23 U/L (7-52) 10/23/24 00:13 Alkaline Phosphatase 136 U/L (34-104) H 10/23/24 00:13 Troponin I High Sens 15.1 pg/ml (0-20) 10/23/24 02:15 B-Natriuretic Peptide 184 pg/ml (0-100) H 10/23/24 00:13 Total Protein 5.6 gm/dl (6.0-8.3) L 10/23/24 00:13 Albumin 3.1 gm/dl (3.4-5.0) L 10/23/24 00:13 Globulin 2.5 gm/dl (2.5-4.0) 10/23/24 00:13 Albumin/Globulin Ratio 1.2 (0.9-2) 10/23/24 00:13 Procalcitonin 0.09 ng/ml (0-0.5) 10/23/24 02:07 Adenovirus (PCR) Not Detected (NotDetected) 10/23/24 02:15 B. pertussis DNA (PCR) Not Detected (NotDetected) 10/23/24 02:15 B.parapertussis DNA PCR Not Detected (NotDetected) 10/23/24 02:15 C. pneumoniae DNA (PCR) Not Detected (NotDetected) 10/23/24 02:15 Coronavirus OC43 (PCR) Not Detected (NotDetected) 10/23/24 02:15 Coronavirus HKU1 (PCR) Not Detected (NotDetected) 10/23/24 02:15 Coronavirus 229E (PCR) Not Detected (NotDetected) 10/23/24 02:15 SARS-CoV-2 (PCR) Not Detected (NotDetected) 10/23/24 02:15 Coronavirus NL63 (PCR) Not Detected (NotDetected) 10/23/24 02:15 Human Metapneumovir PCR Not Detected (NotDetected) 10/23/24 02:15 Influenza Type A (PCR) Not Detected (NotDetected) 10/23/24 02:15 Influenza Type B (PCR) Not Detected (NotDetected) 10/23/24 02:15 M. pneumoniae (PCR) Not Detected (NotDetected) 10/23/24 02:15 Parainfluenza 1 (PCR) Not Detected (NotDetected) 10/23/24 02:15 Parainfluenza 2 (PCR) Not Detected (NotDetected) 10/23/24 02:15 Parainfluenza 3 (PCR) Not Detected (NotDetected) 10/23/24 02:15 Parainfluenza 4 (PCR) Not Detected (NotDetected) 10/23/24 02:15 RSV (PCR) Not Detected (NotDetected) 10/23/24 02:15 Entero/Rhino (PCR) Not Detected (NotDetected) 10/23/24 02:15 Impressions Chest X-Ray 10/23/24 01:39 EXAM: XR chest 1V portable CLINICAL HISTORY: extremity swelling TECHNIQUE: An X-ray image of the chest is obtained in AP projection. COMPARISON: CR 12/05/2023. FINDINGS: Pulmonary Parenchyma: Right central venous line with its tip in the superior vena cava. Chronic interstitial thickening and emphysema persist. No evidence of consolidation. A 1.8 cm right mid-lung zone nodule is again noted. A small left infrahilar density/mass persists. Destructive left second rib lesion, adjacent pleural soft tissue thickening remains unchanged. No evidence of pleural effusion. Heart and Mediastinum: The heart remains mildly enlarged. No mediastinal widening or masses. No hilar or mediastinal lymphadenopathy. left-sided dual-chamber pacemaker again noted. Bony Thorax: Bony thorax appears intact without fractures or deformities. Destructive left second rib lesion. Soft Tissues: Soft tissues overlying the chest wall are unremarkable. IMPRESSION: 1. No acute cardiopulmonary abnormalities are identified. 2. Emphysema and chronic interstitial thickening. Stable 3. Right lower zone and left lower zone pulmonary nodules. Stable. 4. Destructive left second rib lesion, unchanged. Electronically signed by Bismark Stiles 10-23-2024 02:39 AM ECG Additional Comments: ECG. Atrial sensed ventricular paced rhythm with a rate of 68 Code Status & VTE Plan VTE Prophylaxis Plan VTE Prophylaxis will be ordered: Yes
[2024-10-23 07:29] LABS: Hematocrit (blood only) 32.1 % (42.0-52.0); Hemoglobin 10.8 g/dl (14.0-18.0); Mean Corpuscular Hemoglobin 34.8 pg (25.0-34.0); Mean Corpuscular Volume 103.5 fL (80.0-100.0); Platelet Count 114 K/uL (130-400); RDW Standard Deviation 66.5 fL (36.4-46.3); Red Blood Count 3.10 M/uL (4.70-6.10); White Blood Count 22.64 K/ul (4.8-10.8)
[2024-10-23] MEDS ORDERED: VANCOMYCIN CONSULT ACTIVE PRN (07:35)
[2024-10-23 07:45] LABS: Anion Gap 3.0 (3-11); Blood Urea Nitrogen 23.0 mg/dl (6-23); Calcium 8.4 mg/dl (8.6-10.3); Carbon Dioxide 36.0 mmol/L (21-32); Chloride 95.0 mmol/L (98-107); Creatinine Clr Calc Pharmacy 110.6 ml/min; Glucose 93.0 mg/dl (70-99(Fasting)); Magnesium 1.7 mg/dl (1.7-2.4); Potassium 3.5 mmol/L (3.5-5.1); Sodium 134.0 mmol/L (136-145)
[2024-10-23 08:06] LABS: Immature Granulocytes # (auto) 0.33 K/uL (0.01-0.20); Immature Granulocytes % (auto) 1.5 %; Polychromasia 1+
[2024-10-23] MEDS: VANCOMYCIN HCL 1,500 MG in SODIUM CHLORIDE 0.9% 500 ML IV ONE (08:17)
[2024-10-23] MEDS: FLUTICASONE FUROATE 100MCG 14 PUFFS/INHALER INH SCH (08:19)
[2024-10-23] MEDS: FERROUS SULFATE 325 MG TAB PO SCH (08:20)
[2024-10-23] MEDS: LORATADINE 10 MG TAB PO PRN (08:20)
[2024-10-23] MEDS: UMECLIDINIUM/VILANTEROL 62.5/25MCG 7 PUFFS/INHALER INH SCH (08:20)
[2024-10-23] MEDS: APIXABAN 5 MG TABLET PO SCH (08:20)
[2024-10-23] MEDS: ATORVASTATIN 40 MG TAB PO SCH (08:20)
[2024-10-23] MEDS: MULTIVITAMIN TAB PO SCH (08:20)
[2024-10-23] MEDS: FUROSEMIDE 20 MG TAB PO SCH (08:20)
[2024-10-23] MEDS: METOPROLOL SUCC 25MG EXT REL TAB PO SCH (08:21)
[2024-10-23] MEDS: CALCIUM 600MG + VIT D 400 IU TAB PO SCH (08:21)
--- NOTE | 2024-10-23 09:41 | Pharmacy Report ---
Pharmacy PK ABX Note - Date of Service October 23, 2024 - Assessment and Plan Assessment 74 year old M receiving vancomycin for treatment of bilateral edema of lower left extremity. Pertinent microbiologic data includes: blood cultures pending. Day # 1 of antimicrobial therapy. Plan Vancomycin * Loading dose: 1500 mg IV x 1 * Maintenance dose: 1250 mg IV every 12 hours * Regimen is predicted to achieve target AUC/KOTA of 400-600 mg/L.hr * Trough level ordered for: 10/23/24 @0330 Pharmacy will continue to follow and will adjust dose/frequency as necessary. Thank you. Pharmacy has transitioned to AUC monitoring for vancomycin. AUC/KOTA is the prefe rred PK/PD target and is associated with decreased risk of nephrotoxicity compared to traditional trough targets.
[2024-10-23] MEDS ORDERED: cefTRIAXone SODIUM 2,000 MG/50 ML BAG IV SCH (10:00)
--- NOTE | 2024-10-23 10:05 | Ultrasound Report ---
BILATERAL LOWER EXTREMITY VENOUS DOPPLER HISTORY: b/l lower extremity edema. dvt? COMPARISON STUDY: 10/01/2024 FINDINGS: There is a small nonocclusive echogenic thrombus with some associated calcification in the right popliteal vein, stable. No other evidence of DVT seen in bilateral lower extremities. IMPRESSION: 1. Stable small nonocclusive thrombus right popliteal vein. 2. No other evidence of DVT seen bilaterally. ACT 112: Negative or not required by law. Electronically signed by: Jonathan Lemus M.D. 10/23/2024 10:03 AM
[2024-10-23] MEDS: FUROSEMIDE INJ 20 MG/2 ML VIAL IV SCH (10:09)
[2024-10-23 10:22] LABS: Appearance Urine Clear (Clear); Bacteria Urine Automated None Seen (None Seen); Cast Urine Automated 0-2 /lpf (0-2); Epithelial Cell Urine Auto 0-2 /hpf (0-2); Glucose Urine UA Negative (Negative); RBC Urine Automated 0-2 /hpf (0-2); WBC Urine Automated 0-5 /hpf (0-5)
--- NOTE | 2024-10-23 11:29 | Hospitalist Progress Note ---
Date of Service October 23, 2024 Assessment & Plan (1) Bilateral edema of lower extremity: Plan: 74-year-old male with past medical history significant for dyslipidemia, COPD, pulmonary fibrosis, sleep apnea, paroxysmal atrial fibrillation, hypertension, left bundle branch block, history of CAD, history of complete heart block status post permanent pacemaker, 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 Patient states since his chemo he has lower extremity edema. Lower extremity edema has been chronic. But last few days bilateral lower extremity got worse. The distal part of the left leg started draining fluid which made him come to the ER. Bilateral edema of lower extremity Possible acute on chronic diastolic HF Possible adverse effects of Steroids Patient presents to the hospital with worsening lower extremity edema Echocardiogram from February 2024 shows EF of 50% Also concern for cellulitis Venous duplexno acute DVT; has stable small nonocclusive thrombus in right popliteal vein Will start him on IV Lasix 20 mg twice daily Follow-up on echocardiogram Input and output monitoring Leukocytosis Chronically elevated WBC count Was elevated during last admission also and seems as per peripheral smear appears to be reactive but there is a rare dysplastic changes neutrophils cannot exclude myelodysplasia syndrome and heme-onc referral recommended Patient asked to follow-up with his oncologist as outpatient for further workup. Agrees COPD Pulmonary fibrosis Continue home inhalers A-fib On metoprolol succinate and Eliquis,continue Chronic right popliteal thrombus On Eliquis,continue Complete heart block status post PPM Chronic bundle-branch block Hypertension On metoprolol succinate and diuretics,continue Hyperlipidemia On statin Chronic anemia Hemoglobin 11.1 Metastatic non-small cell lung cancer So far received 3 lines of chemo treatment for lung cancer PET scan on 10/04/2024 showed mildly increased size and metabolic activity of the left lower lobe nodule without any evidence of new disease and persistent hypermetabolic activity of the bilateral adrenal glands which have enlarged Currently not on any chemo. Per heme/onco :Plan to follow CBC and CMP.And plan to repeat PET scan in 3 months Following with heme-onc DVT prophylaxis On Eliquis Disposition Med/telemetry CODE STATUS full code Please note the above document was generated using voice recognition software. It may contain grammatical, syntax or spelling errors. Any formal questions or concerns about the content, text or information contained within the body of this dictation should be directly addressed to the provider for clarification Admission and Anticipated Discharge Date Admission Date: October 23, 2024 Subjective Patient seen and examined at bedside. He continues to report swelling and pain in his bilateral lower extremity. Review of Systems Review of Systems: All systems reviewed & are unremarkable except as noted in Subjective Physical Exam Physical Exam: Constitutional: WD/WN, vitals as above, NAD, sitting up in bed, pleasant, conversing easily Respiratory: normal respiratory effort, lungs clear to auscultation, no wheeze, rales, rhonchi. Normal insp/exp effort, no accessory muscle use Cardiovascular: RRR, no murmur, no edema Vessels: no JVD or carotid bruit Chest: normal inspection of chest Abdomen: normal bowel sounds, soft, nontender, no hepatosplenomegaly Musculoskeletal: 4+ pitting edema up to thigh. Neurologic: PERRL, EOMI, accommodation nl, no face palsy, no dysarthria CN's II- XI intact bilaterally and moves all extremities Psychiatric: A+Ox3, euthymic affect Results & Data Results & Data Vital Signs (Past 12 Hours) Vital Signs Temp Pulse Pulse Resp BP BP Pulse Ox 10/23/24 08:21 36.7 C 61 16 104/67 96 10/23/24 07:42 10/23/24 05:51 10/23/24 05:51 36.5 C 66 16 122/78 94 10/23/24 05:47 65 10/23/24 05:17 67 10/23/24 04:43 63 18 123/81 95 10/23/24 04:00 70 16 120/79 100 10/23/24 02:54 66 16 106/75 96 10/23/24 02:36 70 23 116/75 95 10/23/24 02:00 67 19 105/67 94 10/23/24 01:39 71 13 101/75 99 10/23/24 01:39 71 10/23/24 00:48 36.5 C 86 18 100/72 96 O2 Del Method 10/23/24 08:21 Room Air 10/23/24 07:42 Room Air 10/23/24 05:51 Room Air 10/23/24 05:51 Room Air 10/23/24 05:47 10/23/24 05:17 10/23/24 04:43 Room Air 10/23/24 04:00 Room Air 10/23/24 02:54 10/23/24 02:36 10/23/24 02:00 10/23/24 01:39 10/23/24 01:39 10/23/24 00:48 Room Air
[2024-10-23] MEDS: VANCOMYCIN HCL 1,250 MG in SODIUM CHLORIDE 0.9% 250 ML IV SCH (15:16)
--- NOTE | 2024-10-23 15:33 | Electrocardiogram Report ---
Test Reason : Blood Pressure : */* mmHG Vent. Rate : 68 BPM Atrial Rate : 68 BPM P-R Int : 178 ms QRS Dur : 122 ms QT Int : 436 ms P-R-T Axes : 46 -26 21 degrees QTcB Int : 463 ms Atrial-sensed ventricular-paced rhythm Abnormal ECG When compared with ECG of 30-Sep-2024 22:22, Vent. rate has increased by 6 bpm Confirmed by Thiago Reyes ([id number]) on 10/23/2024 3:33:14 PM Referred By: REFERRED SELF Confirmed By: Thiago Reyes
[2024-10-23] MEDS: HEPARIN 100 UNIT/ML 5ML FLUSH FLUSH PRN (17:16)
[2024-10-24 06:14] LABS: Creatinine Clr Calc Pharmacy 114.4 ml/min
[2024-10-24 07:45] LABS: Anion Gap 4.0 (3-11); Blood Urea Nitrogen 23.0 mg/dl (6-23); Calcium 8.0 mg/dl (8.6-10.3); Carbon Dioxide 34.0 mmol/L (21-32); Chloride 96.0 mmol/L (98-107); Glucose 90.0 mg/dl (70-99(Fasting)); Potassium 3.5 mmol/L (3.5-5.1); Sodium 134.0 mmol/L (136-145)
--- NOTE | 2024-10-24 12:30 | Cardiology Consultation ---
Date of Consultation October 24, 2024 Assessment & Plan (1) Bilateral edema of lower extremity: (2) Heart failure, systolic, with acute decompensation: (3) Hypoalbuminemia: (4) Deep vein thrombosis (DVT) of right lower extremity: (5) Metastatic non-small cell lung cancer: Plan 74-year-old male admitted with worsening left greater than right lower extremity peripheral edema despite outpatient titration of oral furosemide to 40 mg/day. Significant response noted to low-dose IV furosemide (received 3 doses of 20 mg IV furosemide) with prompt significant improvement in fluid retention, fluid balance -3761 mL since admission. Volume overload appears multifactorial in etiology - DVT, high-dose steroids, chemotherapy, anemia, hypoalbuminemia, systolic and diastolic heart failure all likely contributing factors. Patient asymptomatic with the paroxysmal atrial fibrillation. Pacemaker functioning appropriately via last interrogation. Recommendations: * Transition back to oral furosemide at 40 mg/day * Add spironolactone 12.5 mg on Wednesday's, Wednesday's, and Wednesday's to start. 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 Full assessment plan as outlined by advanced provider as above. Care management discussed and personally endorsed. 74-year-old male admitted with signs and symptoms of mixed systolic and diastolic heart failure with mildly reduced ejection fraction, EF 50%. Precipitating causes as noted including high-dose corticosteroid as part of chemotherapy regimen. Has responded briskly to IV diuretics. Plan as outlined above History of Present Illness Reason for Consultation: CHF with reduced EF, bilateral lower extremity edema Requesting Physician: [facility], Dr. Ilir Fountain MD Attending Physician: [facility], Dr. Ilir Fountain MD History of Present Illness Patient is a very pleasant 74-year-old male who previously complained of weakness and fatigue. EKG revealed left bundle branch block as well as intermittent high degree heart block leading to permanent pacemaker implantation in September 2022. CT calcium scoring revealed an incidental left-sided pulmonary mass along with pulmonary nodules, pulmonary fibrosis, and emphysema. Biopsy with non-small cell lung cancer compatible with adenocarcinoma with possible focal squamous differentiation with PET/CT revealing metastatic disease involving the bilateral lung, mediastinal lymph nodes, bone metastases and adrenal metastasis. Patient initially treated with capmatinib, unfortunately with follow-up imaging revealing progression. He was then treated with pemetrexed plus carboplatin and Keytruda though with significant side effects and continued disease progression. Most recently patient treated with docetaxel. Patient notes significant side effects from therapies including generalized weakness fatigue, and significant fluid retention. Patient presented to the [facility] emergency room on October 23, 2024 with significant lower extremity peripheral edema as well as leakage from the left lower extremity despite titration of oral furosemide as an outpatient to 40 mg/day. Concern for cellulitis noted. Patient treated with IV furosemide at 20 mg twice per day with significant improvement. At the time of my evaluation patient is resting comfortably. He notes that his legs have not looked this good in many months. On questioning, patient has a cough productive of mucus. No fevers or chills. No orthopnea or PND. No dizziness or syncope. No melena or hematochezia. Venous duplex this admission revealed a stable small nonocclusive echogenic thrombus with some associated calcification in the right popliteal vein with no other evidence of DVT. Resting echocardiography this admission revealed mild reduction in LV systolic function, EF 45-50%. Grade 1 diastolic dysfunction observed. No significant valvular issues noted. Doppler findings did not suggest pulmonary hypertension. Problem List Intermittent complete heart block status post permanent Medtronic pacemaker implantation on September 30, 2022 Generator: Medtronic Cynthia XT DR SCOUT Wilkerson [id number], serial number [id number]. Right atrial lead: Medtronic 5076-52 cm, serial number [id number]. Left bundle lead: Medtronic 3830-69 cm, serial number [id number]. Asymptomatic paroxysmal atrial fibrillation [id number] 4 points Chronic left bundle branch block Hypertension Dyslipidemia History of right lower extremity DVT following trauma and surgery, postoperative Non-small cell lung cancer initially diagnosed in November 2022 Pulmonary fibrosis COPD Sleep apnea Reformed tobacco user GERD Obstructive sleep apnea Insomnia Family Histor: Mother with CHF at 79. Father had bladder cancer, passing at 91. Social History: Reformed smoker. No significant alcohol. No illegal drug use. 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 Lives alone. . Allergies Allergy/AdvReac Type Severity Reaction Status Date / Time No Known Allergies Allergy Verified 10/23/24 01:37 Home Medications Medication Instructions Recorded Confirmed Type apixaban 5 mg (74 tabs) tablets in 5 mg PO BID 10/01/24 10/23/24 History a dose pack (Eliquis) atorvastatin 40 mg tablet 40 mg PO QAM 10/01/24 10/23/24 History fluticasone fur. 100 mcg-umeclid 1 inh inhalation UD 10/01/24 10/23/24 History 62.5 mcg-vilant 25 mcg inhalat.powder (Trelegy Ellipta) metoprolol succinate 25 mg 25 mg PO QAM 10/01/24 10/23/24 History tablet,extended release 24 hr multivitamin 1 tab PO QAM 10/01/24 10/23/24 History acetaminophen 500 mg tablet 1,000 mg PO BID PRN Pain 10/23/24 10/23/24 History calcium 600 mg (as 1 tab PO DAILY 10/23/24 10/23/24 History carbonate)-vitamin D3 5 mcg (200 unit) tablet dexamethasone 4 mg tablet 4 mg PO QAM 10/23/24 10/23/24 History ferrous sulfate 325 mg (65 mg 325 mg PO DAILY 10/23/24 10/23/24 History iron) tablet (iron) furosemide 20 mg tablet 20 mg PO QAM 10/23/24 10/23/24 History loratadine 10 mg tablet 10 mg PO DAILY PRN Congestion 10/23/24 10/23/24 History Patient History Medical History DVT (deep venous thrombosis) Right leg LBBB (left bundle branch block) Surgical History Hx of tonsillectomy H/O right knee surgery Meniscus surgery History of surgery Lumbar spine surgery History of bronchoscopy Family History Mother , 79yo CHF (congestive heart failure) Father , 91yo Bladder cancer Brother No problems noted. Sister Lyme disease Many complications from this Daughter No problems noted. Daughter No problems noted. Daughter No problems noted. Daughter No problems noted. Social History Smoking Status: Former smoker Tobacco Type: Cigarettes Cigarettes Per Day: Smoked "a couple yrs"; Smoking End Date: 20 years ago, but has had a few cigarettes recently to help calm himself do; Second Hand Exposure: Yes; Do You Dip or Chew Tobacco: No; Hx Alcohol Use: No Hx Substance Use: No Preferred Language: Iraqi Communication Ability: Effective Visual Impairment: No Limitations Hearing Ability: Normal Home Care Giver Required: No Beliefs That Will Affect Care: None marital status: Current Living Situation: Alone current occupational status: employed current occupation: Works at "the shop" - How many Children do You have: 4 Other Information That Helps Us Care for You: No Feels Safe at Home: Yes Safety Concerns: Feels Safe At This Time Diet: regular caffeine: No during the past year weight has: decreased > 10 lbs Assistive Devices: Walker and Other Review of Systems Review of Systems: Complete review of systems is otherwise as stated above, negative, noncontributory Physical Exam Physical Exam: General: A&Ox3. NAD. Thin, cachectic HENT: Normocephalic. Atraumatic. Eyes: PER. Conjunctiva pink, sclera clear. Neck: No JVD. Heart: RRR 66 bpm. No murmur. No rub. Chest: Right sided port. Left sided pacemaker generator Lungs: Scattered rhonchi that improve post cough. Abdomen: +BS. Soft. Nontender. No masses or organomegaly. Extremities: Mild clubbing. Minimal edema. Stasis changes. No erythema Limited neurological examination is without focal deficits. Pulses: Posterior tibial=1/4. Results & Data Vital Signs (Past 12 Hours) Vital Signs Temp Pulse Pulse Resp BP BP Pulse Ox 10/24/24 11:58 36.4 C L 81 18 91/60 L 91 10/24/24 08:20 36.4 C L 73 18 97/65 L 95 10/24/24 07:36 10/24/24 05:43 66 10/24/24 04:15 36.6 C 77 18 103/64 92 O2 Del Method 10/24/24 11:58 Room Air 10/24/24 08:20 Room Air 10/24/24 07:36 Room Air 10/24/24 05:43 10/24/24 04:15 Room Air Laboratory Results Comprehensive Metabolic Panel 10/24/24 Range/Units 05:25 Sodium 134 L (136-145) mmol/L Potassium 3.5 (3.5-5.1) mmol/L Chloride 96 L (98-107) mmol/L Carbon Dioxide 34 H (21-32) mmol/L BUN 23 (6-23) mg/dl Creatinine 0.58 L (0.6-1.4) mg/dl Glucose 90 (70-99(Fasting)) mg/dl Calcium 8.0 L (8.6-10.3) mg/dl Intake and Output 10/23/24 10/24/24 10/24/24 22:59 06:59 14:59 Intake Total 985 / 1790 275 / 1790 Output Total 3000 / 4701 1400 / 1400 Balance -2014 / -1 275 / -2911 -1400 / -1400 Intake: IV 275 / 1080 275 / 1080 Vancomycin HCl 1,250 mg In 275 / 550 275 / 550 Sodium Chloride 0.9% 250 ml @ 200 mls/hr IV Q12H [facility] Rx#: [id number] Oral 710 / 710 Output: Urine 3000 / 4700 1400 / 1400 Other: Weight 71.1 kg Weight Measurement Method Built in [facility] Diagnostic Findings Nocturnal pulse oximetry in May 2024 was negative for significant hypoxemia that would warrant addition of supplemental oxygen therapy. Pacemaker (Medtronic) interrogation last on July 14, 2024 demonstrated appropriate function, 10.4 years remaining longevity. Time in AT/AF: 6.2%. Atrial paced 10.5%. Ventricular paced 98.9%. Telemetry: Sinus with ectopy, heart rates in the 60's to 80's predominately. October 23, 2024 TTE Interpretation Summary ([facility], Dr. Levi): The left ventricle was normal in size. Normal left ventricular wall thickness. Apical wall motion abnormality may reflect pacemaker activation. No regional wall motion abnormalities noted. Left ventricular ejection fraction 45 to 50%. Grade 1 diastolic dysfunction. No valvular disease. Doppler findings do not suggest pulmonary hypertension. PG Care Time/CCT Total # of Minutes Spent Total Time Spent with Patient: Total time spent is greater than 50% in coordination of care (as documented) at patient's floor/unit and/or counseling patient: Coding Level of Care Code 21684 IN/OBS CONSULT LVL 5,80M Diagnoses Bilateral edema of lower extremity R60.0 Heart failure, systolic, with acute decompensation I50.23 Hypoalbuminemia E88.09 Deep vein thrombosis (DVT) of right lower extremity I82.401 Metastatic non-small cell lung cancer C34.90
[2024-10-24] MEDS: POTASSIUM CHLORIDE CRTAB 20 MEQ TABCR PO STA (13:54)
--- NOTE | 2024-10-24 14:49 | Hospitalist Progress Note ---
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 Patient states since his chemo he has lower extremity edema. Lower extremity edema has been chronic. But last few days bilateral lower extremity got worse. The distal part of the left leg started draining fluid which made him come to the ER. Bilateral edema of lower extremity Possible acute on chronic diastolic HF Possible adverse effects of Steroids Patient presents to the hospital with worsening lower extremity edema Echocardiogram from February 2024 shows EF of 50% Venous duplexno acute DVT; has stable small nonocclusive thrombus in right popliteal vein Echocardiogram shows EF of 45 to 50% with grade 1 diastolic dysfunction; apical wall motion abnormality may reflect pacemaker activation. Patient diuresed with IV Lasix 20 mg twice daily with good diuresis. Cardiology consulted for comanagement; they recommend transitioning him back to oral furosemide 40 mg/day and add spironolactone 12.5 mg on Wednesday and Wednesday. Outpatient follow-up. Leukocytosis Chronically elevated WBC count Was elevated during last admission also and seems as per peripheral smear appears to be reactive but there is a rare dysplastic changes neutrophils cannot exclude myelodysplasia syndrome and heme-onc referral recommended Patient asked to follow-up with his oncologist as outpatient for further workup. Agrees COPD Pulmonary fibrosis Continue home inhalers A-fib On metoprolol succinate and Eliquis,continue Chronic right popliteal thrombus On Eliquis,continue Complete heart block status post PPM Chronic bundle-branch block Hypertension On metoprolol succinate and diuretics,continue Hyperlipidemia On statin,continue Chronic anemia- stable Metastatic non-small cell lung cancer So far received 3 lines of chemo treatment for lung cancer PET scan on 10/04/2024 showed mildly increased size and metabolic activity of the left lower lobe nodule without any evidence of new disease and persistent hypermetabolic activity of the bilateral adrenal glands which have enlarged Currently not on any chemo. Per heme/onco :Plan to follow CBC and CMP.And plan to repeat PET scan in 3 months Following with heme-onc DVT prophylaxis On Eliquis Disposition Med/telemetry CODE STATUS full code I think time spent evaluating patient, direct bedside care, chart review, placing orders, interpretation of diagnostic studies, discussion with consultants, patient, and family members, as well as other required patient management activities is 50 minutes Please note the above document was generated using voice recognition software. It may contain grammatical, syntax or spelling errors. Any formal questions or concerns about the content, text or information contained within the body of this dictation should be directly addressed to the provider for clarification Admission and Anticipated Discharge Date Admission Date: October 23, 2024 Subjective Patient seen and examined at bedside. He has responded well with diuretics; has over -5 L urine output in the last 24 hours. Review of Systems Review of Systems: All systems reviewed & are unremarkable except as noted in Subjective Physical Exam Physical Exam: Constitutional: WD/WN, vitals as above, NAD, sitting up in bed, pleasant, conversing easily Respiratory: normal respiratory effort, lungs clear to auscultation, no wheeze, rales, rhonchi. Normal insp/exp effort, no accessory muscle use Cardiovascular: RRR, no murmur, no edema Vessels: no JVD or carotid bruit Chest: normal inspection of chest Abdomen: normal bowel sounds, soft, nontender, no hepatosplenomegaly Musculoskeletal: 2+ pitting edema up to ankle Neurologic: PERRL, EOMI, accommodation nl, no face palsy, no dysarthria CN's II- XI intact bilaterally and moves all extremities Psychiatric: A+Ox3, euthymic affect Results & Data Results & Data Vital Signs (Past 12 Hours) Vital Signs Temp Pulse Pulse Resp BP BP Pulse Ox 10/24/24 13:00 79 10/24/24 12:54 80 18 96/60 L 100/66 10/24/24 11:58 36.4 C L 81 18 91/60 L 91 10/24/24 08:20 36.4 C L 73 18 97/65 L 95 10/24/24 07:36 10/24/24 05:43 66 10/24/24 04:15 36.6 C 77 18 103/64 92 O2 Del Method 10/24/24 13:00 10/24/24 12:54 10/24/24 11:58 Room Air 10/24/24 08:20 Room Air 10/24/24 07:36 Room Air 10/24/24 05:43 10/24/24 04:15 Room Air
[2024-10-25] MEDS ORDERED: VANCOMYCIN LEVEL ONE (03:00)
[2024-10-25 05:04] VITALS: RESP 18; O2SAT 95
[2024-10-25 07:28] VITALS: TEMP 97.9
[2024-10-25 08:03] LABS: Anion Gap 4.0 (3-11); Blood Urea Nitrogen 25.0 mg/dl (6-23); Calcium 8.0 mg/dl (8.6-10.3); Carbon Dioxide 35.0 mmol/L (21-32); Chloride 96.0 mmol/L (98-107); Creatinine Clr Calc Pharmacy 110.3 ml/min; Glucose 106.0 mg/dl (70-99(Fasting)); Potassium 3.9 mmol/L (3.5-5.1); Sodium 135.0 mmol/L (136-145)
[2024-10-25 09:17] VITALS: BP 106/66
[2024-10-25] MEDS: FUROSEMIDE 40 MG TAB PO SCH (09:18)
[2024-10-25 09:19] VITALS: PULSE 69
[2024-10-25] MEDS: SPIRONOLACTONE 12.5 MG TAB PO SCH (09:19)
--- NOTE | 2024-10-25 11:18 | Discharge Summary ---
Date of Service October 25, 2024 Admission HPI Per Admitting Provider 74-year-old male with past medical history significant for dyslipidemia, COPD, pulmonary fibrosis, sleep apnea, paroxysmal atrial fibrillation, hypertension, left bundle branch block, history of CAD, history of complete heart block status post permanent pacemaker, 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 Patient states since his chemo he has lower extremity edema. Lower extremity edema has been chronic. But last few days bilateral lower extremity got worse. The distal part of the left leg started draining fluid which made him come to the ER. Denies any fevers. Ambulates with a walker. Lives alone. Daughter lives next door. Appetite is not great. Denies chest pain or shortness of breath. No cough. No abdominal pain. Somewhat constipated. Micturating okay. No headache or runny nose or sore throat. Hemodynamics are okay. He was in the hospital in end of September 2024 for bilateral lower extremity weakness. Currently his chemo is on hold.Recently his toenails also got removed as they got loose from chemo Past medical history. As mentioned above Past surgical history. Bronchoscopy. Pacemaker insertion. Social history. Smoked seems for 1 or 2 years. No alcohol use. No drug use. Family history. Mother had lung disorder. Admission Exam Per Admitting Provider General- Not in distress. Head- atraumatic Eyes- PERRL ENT- oropharynx clear Neck- supple, no JVD. Lungs- clear to auscultation mild bibasilar crackles, no wheezing Heart- regular rhythm; no murmur, no gallop. Abdomen- normal bowel sounds, soft, nontender, no distension Extremities- b/l lower extremity gross edema, small opening seen in distal perez of left leg. Mild erythema changes in toes Neuro- alert, oriented ; PERRL, no facial palsy; no dysarthria; moves extremities Principal Diagnosis Bilateral edema of lower extremity Possible acute on chronic diastolic HF Possible adverse effects of Steroids Leukocytosis, chronic Discharge Exam Constitutional: WD/WN, vitals as above, NAD, sitting up in bed, pleasant, conversing easily Respiratory: normal respiratory effort, lungs clear to auscultation, no wheeze, rales, rhonchi. Normal insp/exp effort, no accessory muscle use Cardiovascular: RRR, no murmur, no edema Vessels: no JVD or carotid bruit Chest: normal inspection of chest Abdomen: normal bowel sounds, soft, nontender, no hepatosplenomegaly Musculoskeletal: trace pitting edema ble Neurologic: PERRL, EOMI, accommodation nl, no face palsy, no dysarthria CN's II- XI intact bilaterally and moves all extremities Psychiatric: A+Ox3, euthymic affect Discharge Data Allergies Allergy/AdvReac Type Severity Reaction Status Date / Time No Known Allergies Allergy Verified 10/23/24 01:37 Consultations 10/23/24 03:06 ED Decision to Admit Stat 10/24/24 07:24 Consult Cardiology Routine Ordered Studies 10/23/24 05:55 US venous doppler LE BI Routine Hospital Course (1) Bilateral edema of lower extremity: Per prior attending with addendum: 74-year-old male with past medical history significant for dyslipidemia, COPD, pulmonary fibrosis, sleep apnea, paroxysmal atrial fibrillation, hypertension, left bundle branch block, history of CAD, history of complete heart block status post permanent pacemaker, 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 Patient states since his chemo he has lower extremity edema. Lower extremity edema has been chronic. But last few days bilateral lower extremity got worse. The distal part of the left leg started draining fluid which made him come to the ER. Bilateral edema of lower extremity Possible acute on chronic diastolic HF Possible adverse effects of Steroids Patient presents to the hospital with worsening lower extremity edema Echocardiogram from February 2024 shows EF of 50% Venous duplexno acute DVT; has stable small nonocclusive thrombus in right pop liteal vein Echocardiogram shows EF of 45 to 50% with grade 1 diastolic dysfunction; apical wall motion abnormality may reflect pacemaker activation. Patient diuresed with IV Lasix 20 mg twice daily with good diuresis. Cardiology consulted for comanagement; they recommend transitioning him back to oral furosemide 40 mg/day and add spironolactone 12.5 mg on Wednesday and Wednesday. Outpatient follow-up. Leukocytosis Chronically elevated WBC count Was elevated during last admission also and seems as per peripheral smear appears to be reactive but there is a rare dysplastic changes neutrophils cannot exclude myelodysplasia syndrome and heme-onc referral recommended Patient asked to follow-up with his oncologist as outpatient for further workup. Agrees COPD Pulmonary fibrosis Continue home inhalers A-fib On metoprolol succinate and Eliquis,continue Chronic right popliteal thrombus On Eliquis,continue Complete heart block status post PPM Chronic bundle-branch block Hypertension On metoprolol succinate and diuretics,continue Hyperlipidemia On statin,continue Chronic anemia- stable Metastatic non-small cell lung cancer So far received 3 lines of chemo treatment for lung cancer PET scan on 10/04/2024 showed mildly increased size and metabolic activity of the left lower lobe nodule without any evidence of new disease and persistent hypermetabolic activity of the bilateral adrenal glands which have enlarged Currently not on any chemo. Per heme/onco :Plan to follow CBC and CMP.And plan to repeat PET scan in 3 months Following with heme-onc DVT prophylaxis On Eliquis Disposition Med/telemetry CODE STATUS full code Addendum 10/25/2024: Patient was seen and examined at the bedside as a follow-up of bilateral lower extremity edema iso possible acute on chronic diastolic CHF. Cardiology evaluated, patient transitioned on oral diuretics/Aldactone added. Lasix dose has been increased. Patient hemodynamically stable. 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 He is being discharged with following instructions at the point of discharge: Follow-up with your primary care physician within a week time and likely you will need labs CBC/CMP/magnesium/phosphorus. You were evaluated for concern of heart failure exacerbation and lower extremity edema. Cardiology evaluated you. Your medications has been optimized. Follow-up with cardiology in 2 to 4 weeks time upon discharge. Follow-up with oncology for your chronic elevation of white cell count evaluation and management. Take your medications as prescribed. Please make sure that you are able to get your medications today by calling your pharmacy before you leave the hospital so that your treatment continuity is not broken. Home Health Attestation I certify that this patient is under my care and that I, or a physicians vector control assistant working with me, had a face to-face encounter that meets the home health [id number] encounter requirements with this patient. The encounter with the patient was in whole, or in part, for the following medical condition, which is the primary reason for home health care (list medical condition): I certify that, based on my findings, the following services are medically necessary home health services: My clinical findings support the need for the above services because: Further, I certify that my clinical findings support that this patient is homebound (i.e. absences from home require considerable and taxing effort and are for medical reasons or [employer]an cath[employer] services or infrequently or of short duration when for other reasons) because: Certification for Home Health Services: Based on the above findings, I certify that this patient is confined to the home and needs intermittent care home care, physical therapy and/or speech therapy or continues to need occupational therapy. The patient is under my care, and I have initiated the establishment of the plan of care. This patient will be followed by a physician who will periodically review the plan of care. Total Time Total Time Spent Total Time Spent (In Minutes): 45 Discharge Plan Discharge Items Patient Disposition: Home - Self-Care Reason For Visit: LOWER EXTREMITY EDEMA, LEUKOCYTOSIS, LUNG CANCER Discharge Diagnosis: Bilateral edema of lower extremity Possible acute on chronic diastolic HF Possible adverse effects of Steroids Leukocytosis, chronic Condition on Discharge: Serious Activity: Resume your previous activity Non-emergency contact: Primary Care Provider Call non-emergency contact if: you have any medication questions Follow-up/Referrals: Alexa Milan MD [Outside Practitioners] - (Date & Time 10/27/2024 11:00 AM Provider: Alexa Hernandez MD Family Medicine [facility]) Diet: Heart Healthy Addtl Attending Provider Instructions: Follow-up with your primary care physician within a week time and likely you will need labs CBC/CMP/magnesium/phosphorus. You were evaluated for concern of heart failure exacerbation and lower extremity edema. Cardiology evaluated you. Your medications has been optimized. Follow-up with cardiology in 2 to 4 weeks time upon discharge. Follow-up with oncology for your chronic elevation of white cell count evaluation and management. Take your medications as prescribed. Please make sure that you are able to get your medications today by calling your pharmacy before you leave the hospital so that your treatment continuity is not broken. Pending Studies at Discharge: Yes Stand-Alone Forms: [employer], Smoking Cessation Medications and DC Order Prescriptions: New furosemide 40 mg Tablet 40 mg PO QAM Qty: 30 0RF spironolactone 25 mg Tablet 12.5 mg PO MoWeFr@0900 Qty: 15 0RF Continued metoprolol succinate 25 mg tablet extended release 24 hr 25 mg PO QAM atorvastatin 40 mg tablet 40 mg PO QAM Eliquis 5 mg (74 tabs) tablets,dose pack 5 mg PO BID multivitamin Tablet 1 tab PO QAM Trelegy Ellipta 100-62.5-25 mcg blister with device 1 inh INHALATION UD calcium carbonate-vitamin D3 [Calcium + D] 600 mg-5 mcg (200 unit) Tablet 1 tab PO DAILY ferrous sulfate [iron] 325 mg (65 mg iron) Tablet 325 mg PO DAILY dexamethasone 4 mg tablet 4 mg PO QAM loratadine 10 mg Tablet 10 mg PO DAILY PRN (Reason: Congestion) acetaminophen 500 mg Tablet 1,000 mg PO BID PRN (Reason: Pain) Discontinued furosemide 20 mg tablet 20 mg PO QAM Discharge Orders: Discharge Order- CHF (Routine); Ordered 10/25/24 Ordered By: Presley Rios Admission Data Admit Date/Time: 10/23/24 03:55 Attending Provider: Presley Rios Admit Provider: Kiran Henry Primary Care Provider: Tito Valenzuela Other Providers: Kiran Henry; Nisha James; Khai Estevez; Josh Levi; Joaquin Ott; Lukas Soto; Shant Clements; Kristal Vidales; Carolin Antony; Zuly Atkins; Kassi Ojeda; Nisha Ray; Raimundo Cage; Ricardo Marcum; Radha Rossi; Loreta Goodwin; Shirley Morse; Greg Dowling; Samuel House; Angelita Moy; Ericka Meadows; Hood Dickinson
== END 2024-10-25 13:19 | disposition home or self-care (01) | DRG 291 ==
LOC: ED 00:46 → SUATTDRO 03:55 → 2N 03:55

== ENCOUNTER 2024-11-04 22:41 | Inpatient (IN) ==
--- NOTE | 2024-11-04 22:58 | Emergency Department Note ---
Impression & Plan CHF (congestive heart failure), Ambulatory dysfunction, Bilateral edema of lower extremity, Lung cancer, Acute hyponatremia ED Provider Note NAME: COMFORT FAIRCHILD AGE: 74 SEX: M : 1950 ARRIVES VIA: Ambulance INFORMANT: Patient, ED PROVIDER(S): Pietro Dennison MD CHIEF COMPLAINT: Leg swelling, open wound MEDICAL DECISION MAKING: Patient presents with the above. The patient does have 2-3+ symmetric lower extremity edema but without calf pain or erythema. The patient did have a very small open area to the left distal perez but no significant surrounding erythema fluctuance but the patient has reported some clear drainage. IV was established and blood work was obtained. The patient was on 2 L nasal cannula and was ordered BioFire empiric cefepime blood cultures and lactate. IV fluids deferred in light of the patient's significant fluid retention. Patient's blood work shows a white count of 14 with a hemoglobin of 10.3 anemia is chronic and stable. Mild thrombocytopenia at 113 patient has been thrombocytopenic before. Kidney function unremarkable. Sodium 132. Calcium 7.8. The patient was ordered 1 g of IV calcium gluconate. Initial troponin 27.8 but without chest pain or shortness of breath procalcitonin is negative. Patient's bio fire negative. Chest x-ray shows emphysematous and interstitial thickening. Stable compared to prior. Given the patient's inability to walk worsening fluid retention patient was ordered IV Lasix and I did speak the on- call hospitalist Dr. Henry and the patient was admitted to the medicine service. Discussion w/ other healthcare providers: Dr. Henry inpatient medicine service Prior /Outside records reviewed: None Differential diagnosis: Infection, dehydration, metabolic abnormality, hypo/hyperglycemia, electrolyte imbalance, anemia, UTI, pneumonia, thyroid dysfunction among others were considered. Diagnostics, as interpreted by me: ECG: A sensed V paced rhythm, rate of 87, normal intervals, left axis deviation Q waves noted anteriorly and laterally no obvious STEMI. Cardiac monitoring: An order was placed for continuous cardiac monitoring. The monitor shows a rate of 85 with regular rhythm. Patient was placed on pulse oximetry Medical decision rules: None Imaging studies: I informally interpreted the patient's chest x-ray does not show obvious pneumonia with formal report to follow. HPI: He has not been able to reside in his own home as it is uphill and he is unable to walk up there. 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 Patient states that he was unable to walk today. Patient denies any chest pains or shortness of breath. The patient states that he has had worsening tingling in his hands and feet. Patient reports that he did go to a special to the shoe store given his significant swelling in his feet and lower legs and was able to wear some size 15 shoes. EMS reportedly placed him on 4 L nasal cannula. The patient denies any cough or fever but reports that EMS told him that he had a "slight temperature" coming in. Patient does follow with Dr. Trinidad for known history of Metastatic non-small cell lung cancer with metastases to the bone. Patient has not had chemo in about 3 weeks. Patient does report that he has not taken his meds today. The patient states that he was very upset this morning he was unable to get up and walk. Patient did report that he had some clear drainage coming from his left leg. PAST MEDICAL HISTORY: See Below PAST SURGICAL HISTORY: See Below SOCIAL HISTORY: See Below HOME MEDICATIONS: See Below ALLERGIES: See Below VITALS: See Below PHYSICAL EXAMINATION: GENERAL: NAD, non-toxic. Wearing glasses. EYE EXAM: Normal conjunctiva. PERRL, no anisocoria and EOM's grossly intact w/o pain. OROPHARYNX: Moist mucus membranes, grossly normal dentition. NECK: Trachea midline, no stridor. LUNGS: Clear to auscultation. Normal chest wall mechanics. HEART: NSR, no MRG. ABDOMEN: Abdomen soft, non-tender, no masses, no rebound or guarding. BACK: No CVA TTP. SKIN: No rashes and no bruising. UPPER EXTREMITIES: Upper extremities are grossly normal. LOWER EXTREMITIES: Grossly normal, 2-3+ symmetric lower extremity edema without calf pain or erythema, venous stasis changes noted. Small open area to the distal left perez no significant surrounding erythema fluctuance. NEURO EXAM: Awake and alert, follows commands, no obvious facial asymmetry, normal speech, moves all 4 extremities. Past Med/Surg History Problem List (Updated 11/05/24 @ 03:08 by Pietro Dennison MD) Acute hyponatremia (Acute) Lung cancer (Acute) Bilateral edema of lower extremity (Acute) Ambulatory dysfunction (Acute) CHF (congestive heart failure) (Acute) Hypoalbuminemia Heart failure, systolic, with acute decompensation Bilateral edema of lower extremity (Acute) Leukocytosis (Acute) Right leg weakness Elevated troponin (Acute) Leukocytosis (Acute) Deep vein thrombosis (DVT) of right lower extremity (Acute) Weakness (Acute) Metastatic non-small cell lung cancer (Chronic) Biopsy on 11/11/22 Pain from bone metastases (Chronic) Pacemaker (Acute) Placed 09/30/22 Intermittent complete heart block (Acute) Hypertension Medical History DVT (deep venous thrombosis) Right leg LBBB (left bundle branch block) Surgical History Hx of tonsillectomy H/O right knee surgery Meniscus surgery History of surgery Lumbar spine surgery History of bronchoscopy Family History Mother , 79yo CHF (congestive heart failure) Father , 91yo Bladder cancer Brother No problems noted. Sister Lyme disease Many complications from this Daughter No problems noted. Daughter No problems noted. Daughter No problems noted. Daughter No problems noted. 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 100 mcg-umeclid 1 inh inhalation DAILY 10/01/24 11/05/24 62.5 mcg-vilant 25 mcg inhalat.powder (Trelegy Ellipta) metoprolol succinate 25 mg 25 mg PO QAM 10/01/24 11/05/24 tablet,extended release 24 hr multivitamin 1 tab PO QAM 10/01/24 11/05/24 acetaminophen 500 mg tablet 1,000 mg PO BID PRN Pain 10/23/24 11/05/24 calcium 600 mg (as 1 tab PO DAILY 10/23/24 11/05/24 carbonate)-vitamin D3 5 mcg (200 unit) tablet dexamethasone 4 mg tablet 4 mg PO QAM 10/23/24 11/05/24 ferrous sulfate 325 mg (65 mg 325 mg PO DAILY 10/23/24 11/05/24 iron) tablet (iron) loratadine 10 mg tablet 10 mg PO DAILY PRN Congestion 10/23/24 11/05/24 spironolactone 25 mg tablet 12.5 mg PO 3XWK 11/05/24 11/05/24 Previous Rx's Medication Instructions Recorded furosemide 40 mg tablet 40 mg PO QAM #30 tabs 10/25/24 Results & Data (ED) Vital Signs Vital Signs - 24 hr 11/04/24 22:49 11/04/24 23:00 11/04/24 23:45 Temperature 37.7 C H Temperature Source Oral Pulse Rate 78 71 Pulse Rate [Right] 77 Respiratory Rate 18 22 Blood Pressure 108/70 Blood Pressure [Right Arm] 105/67 Blood Pressure Mean 82 Blood Pressure Mean [Right Arm] 79 Blood Pressure Position Semi-fowlers Pulse Oximetry 95 95 Oxygen Delivery Method Nasal Cannula Nasal Cannula Oxygen Flow Rate 2 2 Sepsis Recent Fever Within 48 Hours No Sepsis New/Unexplained Change in Mental Status No Sepsis Action Taken by Nursing No Action Required 11/05/24 00:15 11/05/24 00:30 11/05/24 01:00 Temperature Temperature Source Pulse Rate Pulse Rate [Right] 77 62 85 Respiratory Rate 24 22 24 Blood Pressure Blood Pressure [Right Arm] 101/65 109/64 109/71 Blood Pressure Mean Blood Pressure Mean [Right Arm] 77 79 83 Blood Pressure Position Pulse Oximetry 98 97 95 Oxygen Delivery Method Nasal Cannula Nasal Cannula Nasal Cannula Oxygen Flow Rate 2 2 2 Sepsis Recent Fever Within 48 Hours Sepsis New/Unexplained Change in Mental Status Sepsis Action Taken by Nursing 11/05/24 01:30 11/05/24 02:00 11/05/24 02:30 Temperature Temperature Source Pulse Rate Pulse Rate [Right] 75 90 85 Respiratory Rate 26 H 24 24 Blood Pressure Blood Pressure [Right Arm] 108/73 104/73 110/68 Blood Pressure Mean Blood Pressure Mean [Right Arm] 84 83 82 Blood Pressure Position Pulse Oximetry 96 94 94 Oxygen Delivery Method Nasal Cannula Nasal Cannula Nasal Cannula Oxygen Flow Rate 2 2 2 Sepsis Recent Fever Within 48 Hours Sepsis New/Unexplained Change in Mental Status Sepsis Action Taken by Nursing 11/05/24 02:54 Temperature Temperature Source Pulse Rate 78 Pulse Rate [Right] Respiratory Rate Blood Pressure Blood Pressure [Right Arm] Blood Pressure Mean Blood Pressure Mean [Right Arm] Blood Pressure Position Pulse Oximetry Oxygen Delivery Method Oxygen Flow Rate Sepsis Recent Fever Within 48 Hours Sepsis New/Unexplained Change in Mental Status Sepsis Action Taken by Longterm Medications Current Medication List: was personally reviewed by me Laboratory Data Attestation: I reviewed the patient's lab results. 11/04/24 23:28 11/04/24 23:28 Lab Results 11/04/24 11/05/24 Range/Units 23:28 01:24 WBC 14.79 H (4.8-10.8) K/ul RBC 2.93 L (4.70-6.10) M/uL Hgb 10.3 L (14.0-18.0) g/dl Hct 31.0 L (42.0-52.0) % MCV 105.8 H (80.0-100.0) fL MCH 35.2 H (25.0-34.0) pg MCHC 33.2 (32.0-36.0) g/dL RDW Std Deviation 71.9 H (36.4-46.3) fL RDW Coeff of Kuldeep 18.7 H (11.5-14.5) % Plt Count 113 L (130-400) K/uL MPV 9.0 L (9.4-12.4) fL Immature Gran % (Auto) 0.7 % Neut % (Auto) 88.8 % Lymph % (Auto) 2.2 % Tyler % (Auto) 7.9 % Eos % (Auto) 0.3 % Baso % (Auto) 0.1 % Neut # (Auto) 13.12 H (1.40-6.50) K/uL Lymph # (Auto) 0.33 L (1.20-3.40) K/uL Tyler # (Auto) 1.17 H (0.11-0.59) K/uL Eos # (Auto) 0.04 (0.00-0.50) K/uL Baso # (Auto) 0.02 (0.00-0.20) K/uL Immature Gran # (Auto) 0.11 (0.01-0.20) K/uL Sodium 132 L (136-145) mmol/L Potassium 3.8 (3.5-5.1) mmol/L Chloride 96 L (98-107) mmol/L Carbon Dioxide 33 H (21-32) mmol/L Anion Gap 3 (3-11) BUN 15 (6-23) mg/dl Creatinine 0.62 (0.6-1.4) mg/dl Est Cr Clr Drug Dosing 111.3 ml/min eGFR 100.30 BUN/Creatinine Ratio 24.2 H (10-20) Glucose 105 H (70-99(Fasting)) mg/dl Lactate 1.0 (0.4-2.0) mmol/L Calcium 7.8 L (8.6-10.3) mg/dl Magnesium 1.7 (1.7-2.4) mg/dl Total Bilirubin 0.8 (0.2-1.0) mg/dl Direct Bilirubin 0.2 (0-0.2) mg/dl AST 17 (13-39) U/L ALT 23 (7-52) U/L Alkaline Phosphatase 85 (34-104) U/L Troponin I High Sens 27.8 H 25.6 H (0-20) pg/ml Total Protein 5.1 L (6.0-8.3) gm/dl Albumin 2.5 L (3.4-5.0) gm/dl Procalcitonin 0.19 (0-0.5) ng/ml Adenovirus (PCR) Not Detected (NotDetected) B. pertussis DNA (PCR) Not Detected (NotDetected) B.parapertussis DNA PCR Not Detected (NotDetected) C. pneumoniae DNA (PCR) Not Detected (NotDetected) Coronavirus OC43 (PCR) Not Detected (NotDetected) Coronavirus HKU1 (PCR) Not Detected (NotDetected) Coronavirus 229E (PCR) Not Detected (NotDetected) SARS-CoV-2 (PCR) Not Detected (NotDetected) Coronavirus NL63 (PCR) Not Detected (NotDetected) Human Metapneumovir PCR Not Detected (NotDetected) Influenza Type A (PCR) Not Detected (NotDetected) Influenza Type B (PCR) Not Detected (NotDetected) M. pneumoniae (PCR) Not Detected (NotDetected) Parainfluenza 1 (PCR) Not Detected (NotDetected) Parainfluenza 2 (PCR) Not Detected (NotDetected) Parainfluenza 3 (PCR) Not Detected (NotDetected) Parainfluenza 4 (PCR) Not Detected (NotDetected) RSV (PCR) Not Detected (NotDetected) Entero/Rhino (PCR) Not Detected (NotDetected) Administered Medications Discontinued Medications Furosemide (Furosemide 40 Mg/4 Ml Vial) 40 mg IV ONE ONE Stop: 11/05/24 00:41 Last Admin: 11/05/24 01:22 Dose: 40 mg Documented By: WINIFRED Cefepime HCl (Maxipime 2000mg) 2,000 mg in 20 mls @ 5 mls/min IV NOW STA; Protocol Stop: 11/04/24 23:18 Last Admin: 11/04/24 23:46 Dose: 5 mls/min Documented By: WINIFRED Calcium Gluconate () 1,000 mg in 60 mls @ 240 mls/hr IV NOW STA Stop: 11/05/24 00:54 Last Infusion: 11/05/24 01:56 Dose: Infused Documented By: Admin: 11/05/24 01:25 Dose: 240 mls/hr Documented By: WINIFRED Imaging Data Radiologist's Impression: Chest X-Ray 11/04/24 23:15 EXAM: XR chest 1V portable CLINICAL HISTORY: Sepsis TECHNIQUE: An X-ray image of the chest is obtained in AP projection. COMPARISON: 10/23/2024 CR. FINDINGS: Pulmonary Parenchyma: There are emphysematous changes in both lungs. Interstitial thickening, reticulations with fibrotic changes are identified in both lungs, more pronounced in both lower zones. A tiny nodular opacity in the right mid lower zone. Pleural thickening is identified at both costophrenic angles. Both hilae are prominent. No evidence of consolidation or collapse. Heart and Mediastinum: Heart size is mildly enlarged. No mediastinal widening or masses. No hilar or mediastinal lymphadenopathy. Bony Thorax: Bony thorax appears intact without fractures or deformities. Degenerative changes are seen in thoracic spine. Soft Tissues: Soft tissues overlying the chest wall are unremarkable. Port-A-Cath is identified on the right side with its tip in the superior vena cava. The cardiac pacemaker is projecting over the left hemithorax. IMPRESSION: 1. Emphysematous changes in both lungs. 2. Interstitial thickening, reticulations with fibrotic changes in both lungs, more pronounced in both lower zones. A CT scan is advised for further evaluation. 3. Cardiomegaly. 4. Findings are interval stable when compared to the prior CR image. Electronically signed by Bismark Stiles 11-05-2024 02:04 AM Discharge Plan Visit Data Chief Complaint: Swelling/Edema to Extremity Stated Complaint: LOWER LEG SWELLING ED Provider: Pietro Dennison Discharge Problem: CHF (congestive heart failure), Ambulatory dysfunction, Bilateral edema of lower extremity, Lung cancer, Acute hyponatremia Patient Disposition: Admitted As Inpatient Condition: Good Forms Stand Alone Forms: My [employer] Prescriptions Prescriptions: No Action metoprolol succinate 25 mg tablet extended release 24 hr 25 mg PO QAM atorvastatin 40 mg tablet 40 mg PO QAM Eliquis 5 mg (74 tabs) tablets,dose pack 5 mg PO BID multivitamin Tablet 1 tab PO QAM Trelegy Ellipta 100-62.5-25 mcg blister with device 1 inh INHALATION DAILY calcium carbonate-vitamin D3 600 mg-5 mcg (200 unit) Tablet 1 tab PO DAILY ferrous sulfate [iron] 325 mg (65 mg iron) Tablet 325 mg PO DAILY dexamethasone 4 mg tablet 4 mg PO QAM loratadine 10 mg Tablet 10 mg PO DAILY PRN (Reason: Congestion) acetaminophen 500 mg Tablet 1,000 mg PO BID PRN (Reason: Pain) furosemide 40 mg Tablet 40 mg PO QAM Qty: 30 0RF spironolactone 25 mg tablet 12.5 mg PO 3XWK Rx Instructions: MON, WED, & FRI Referrals Referrals: Tito Valenzuela DO [Primary Care Provider] - Discharge Problem: CHF (congestive heart failure) Qualifiers: Heart failure type: unspecified Heart failure chronicity: acute on chronic Q ualified Code(s): I50.9 - Heart failure, unspecified Lung cancer Qualifiers: Laterality: unspecified laterality Lung location: unspecified part of lung Q ualified Code(s): C34.90 - Malignant neoplasm of unspecified part of unspecified bronchus or lung
[2024-11-04 23:44] LABS: Hematocrit (blood only) 31.0 % (42.0-52.0); Hemoglobin 10.3 g/dl (14.0-18.0); Immature Granulocytes # (auto) 0.11 K/uL (0.01-0.20); Immature Granulocytes % (auto) 0.7 %; Mean Corpuscular Hemoglobin 35.2 pg (25.0-34.0); Mean Corpuscular Volume 105.8 fL (80.0-100.0); Platelet Count 113 K/uL (130-400); RDW Standard Deviation 71.9 fL (36.4-46.3); Red Blood Count 2.93 M/uL (4.70-6.10); White Blood Count 14.79 K/ul (4.8-10.8)
[2024-11-04] MEDS: CEFEPIME 2000MG 2,000 MG/20 ML SYR IV STA (23:46)
[2024-11-05 00:03] LABS: Alanine Aminotransferase 23.0 U/L (7-52); Alkaline Phosphatase 85.0 U/L (34-104); Anion Gap 3.0 (3-11); Bilirubin,Total 0.8 mg/dl (0.2-1.0); Blood Urea Nitrogen 15.0 mg/dl (6-23); Calcium 7.8 mg/dl (8.6-10.3); Carbon Dioxide 33.0 mmol/L (21-32); Chloride 96.0 mmol/L (98-107); Creatinine Clr Calc Pharmacy 111.3 ml/min; Glucose 105.0 mg/dl (70-99(Fasting)); Magnesium 1.7 mg/dl (1.7-2.4); Potassium 3.8 mmol/L (3.5-5.1); Sodium 132.0 mmol/L (136-145); Total Protein 5.1 gm/dl (6.0-8.3)
[2024-11-05 00:47] LABS: Chlamydia pneumoniae PCR Not Detected (NotDetected); Coronavirus 229E PCR Not Detected (NotDetected); Coronavirus CoV-2 (COVID19)PCR Not Detected (NotDetected); Coronavirus HKU1 PCR Not Detected (NotDetected); Coronavirus NL63 PCR Not Detected (NotDetected); Coronavirus OC43PCR Not Detected (NotDetected); Human Metapneumovirus PCR Not Detected (NotDetected); Parainfluenza Virus 1 PCR Not Detected (NotDetected); Parainfluenza Virus 2 PCR Not Detected (NotDetected); Parainfluenza Virus 3 PCR Not Detected (NotDetected); Parainfluenza Virus 4 PCR Not Detected (NotDetected); Respiratory Syncytial VirusPCR Not Detected (NotDetected); Rhinovirus/Enterovirus PCR Not Detected (NotDetected)
[2024-11-05] MEDS: FUROSEMIDE 40 MG/4 ML VIAL IV ONE (01:22)
[2024-11-05] MEDS: CALCIUM GLUCONATE 1,000 MG/60 ML BAG IV STA (01:25)
--- NOTE | 2024-11-05 02:04 | XRay Report ---
EXAM: XR chest 1V portable CLINICAL HISTORY: Sepsis TECHNIQUE: An X-ray image of the chest is obtained in AP projection. COMPARISON: 10/23/2024 CR. FINDINGS: Pulmonary Parenchyma: There are emphysematous changes in both lungs. Interstitial thickening, reticulations with fibrotic changes are identified in both lungs, more pronounced in both lower zones. A tiny nodular opacity in the right mid lower zone. Pleural thickening is identified at both costophrenic angles. Both hilae are prominent. No evidence of consolidation or collapse. Heart and Mediastinum: Heart size is mildly enlarged. No mediastinal widening or masses. No hilar or mediastinal lymphadenopathy. Bony Thorax: Bony thorax appears intact without fractures or deformities. Degenerative changes are seen in thoracic spine. Soft Tissues: Soft tissues overlying the chest wall are unremarkable. Port-A-Cath is identified on the right side with its tip in the superior vena cava. The cardiac pacemaker is projecting over the left hemithorax. IMPRESSION: 1. Emphysematous changes in both lungs. 2. Interstitial thickening, reticulations with fibrotic changes in both lungs, more pronounced in both lower zones. A CT scan is advised for further evaluation. 3. Cardiomegaly. 4. Findings are interval stable when compared to the prior CR image. Electronically signed by Bismark Stiles 11-05-2024 02:04 AM
[2024-11-05 03:40] LABS: Appearance Urine Clear (Clear); Glucose Urine UA Negative (Negative)
--- NOTE | 2024-11-05 03:59 | History & Physical Report ---
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 Patient had a similar presentation on 10/23/2024. During that admission echo showed EF of 45 to 50% and grade 1 diastolic dysfunction, he was treated with IV diuresis and discharged on his home Lasix 40 mg daily and also added spironolactone 12.5 mg on Wednesday and Fridays., Today comes again with lower extremity edema and also some weeping of the left leg. Patient states last admission it took 4 days for swelling to go down. But the patient says the swelling started to come back. Patient states when he stands up the swelling is worse. Having ambulatory dysfunction because of swelling. He ambulates with a cane. Lives alone. Daughter lives close by. Appetite has been not been great. Denies any fevers. Normal bowel and bladder movements. No abdominal pain. No chest pain. No shortness of breath. No headache. No runny nose or sore throat. Hemodynamics are okay. Bilateral lower extremity edema Possible acute on chronic systolic CHF Possible side effect of steroids Has had bilateral lower extremity edema recent admit Echo done on 10/23/2024 shows EF of 45 to 50%. Grade 1 diastolic dysfunction On home Lasix 40 mg daily and spironolactone 12.5 mg thrice weekly Received IV Lasix 40 mg in the ER Will continue with IV Lasix 40 mg twice daily and continue home spironolactone Daily weights I's and O's Telemetry Cardiac consult in a.m. for further recommendations Possible cellulitis of left lower extremity Small wound on left perez with mild erythema surrounding Received cefepime in the ER Will continue with Rocephin and monitor for response Leukocytosis Chronically elevated On the recent admission on peripheral smear, appeared to be reactive but with history of dysplastic changes seen and cannot exclude myelodysplastic syndrome and heme-onc referral recommended to patient. Followup with heme-onc History of paroxysmal atrial fibrillation On metoprolol succinate and Eliquis Hyperlipidemia On statin COPD Pulmonary fibrosis Continue home inhalers Chronic right popliteal thrombus On Eliquis Complete heart block status post PPM Chronic bundle-branch block Hypertension On metoprolol succinate and diuretics Chronic anemia Hemoglobin 10.3 Metastatic non-small cell lung cancer So far received 3 lines of chemo treatment for lung cancer PET scan on 10/04/2024 showed mildly increased size and metabolic activity of the left lower lobe nodule without any evidence of new disease and persistent hypermetabolic activity of the bilateral adrenal glands which have enlarged Currently not on any chemo. 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 Patient had a similar presentation on 10/23/2024. During that admission echo showed EF of 45 to 50% and grade 1 diastolic dysfunction, he was treated with IV diuresis and discharged on his home Lasix 40 mg daily and also added spironolactone 12.5 mg on Wednesday and Fridays., Today comes again with lower extremity edema and also some weeping of the left leg. Patient states last admission it took 4 days for swelling to go down. But the patient says the swelling started to come back. Patient states when he stands up the swelling is worse. Having ambulatory dysfunction because of swelling. He ambulates with a cane. Lives alone. Daughter lives close by. Appetite has been not been great. Denies any fevers. Normal bowel and bladder movements. No abdominal pain. No chest pain. No shortness of breath. No headache. No runny nose or sore throat. Hemodynamics are okay. Past medical history. As mentioned above Past surgical history. Bronchoscopy. Pacemaker insertion. Social history. Smoked seems for 1 or 2 years. No alcohol use. No drug use. Family history. Mother had lung disorder. Allergies Allergy/AdvReac Type Severity Reaction Status Date / Time No Known Allergies Allergy Verified 11/05/24 00:24 Home Medications Medication Instructions Recorded Confirmed Type apixaban 5 mg (74 tabs) tablets in 5 mg PO BID 10/01/24 11/05/24 History a dose pack (Eliquis) atorvastatin 40 mg tablet 40 mg PO QAM 10/01/24 11/05/24 History fluticasone fur. 100 mcg-umeclid 1 inh inhalation DAILY 10/01/24 11/05/24 History 62.5 mcg-vilant 25 mcg inhalat.powder (Trelegy Ellipta) metoprolol succinate 25 mg 25 mg PO QAM 10/01/24 11/05/24 History tablet,extended release 24 hr multivitamin 1 tab PO QAM 10/01/24 11/05/24 History acetaminophen 500 mg tablet 1,000 mg PO BID PRN Pain 10/23/24 11/05/24 History calcium 600 mg (as 1 tab PO DAILY 10/23/24 11/05/24 History carbonate)-vitamin D3 5 mcg (200 unit) tablet dexamethasone 4 mg tablet 4 mg PO QAM 10/23/24 11/05/24 History ferrous sulfate 325 mg (65 mg 325 mg PO DAILY 10/23/24 11/05/24 History iron) tablet (iron) loratadine 10 mg tablet 10 mg PO DAILY PRN Congestion 10/23/24 11/05/24 History furosemide 40 mg tablet 40 mg PO QAM #30 tabs 10/25/24 11/05/24 Rx spironolactone 25 mg tablet 12.5 mg PO 3XWK 11/05/24 11/05/24 History Past Med/Surg History Problem List (Updated 11/05/24 @ 03:08 by Pietro Dennison MD) Acute hyponatremia (Acute) Lung cancer (Acute) Bilateral edema of lower extremity (Acute) Ambulatory dysfunction (Acute) CHF (congestive heart failure) (Acute) Hypoalbuminemia Heart failure, systolic, with acute decompensation Bilateral edema of lower extremity (Acute) Leukocytosis (Acute) Right leg weakness Elevated troponin (Acute) Leukocytosis (Acute) Deep vein thrombosis (DVT) of right lower extremity (Acute) Weakness (Acute) Metastatic non-small cell lung cancer (Chronic) Biopsy on 11/11/22 Pain from bone metastases (Chronic) Pacemaker (Acute) Placed 09/30/22 Intermittent complete heart block (Acute) Hypertension Medical History DVT (deep venous thrombosis) Right leg LBBB (left bundle branch block) Surgical History Hx of tonsillectomy H/O right knee surgery Meniscus surgery History of surgery Lumbar spine surgery History of bronchoscopy Family History Mother , 79yo CHF (congestive heart failure) Father , 91yo Bladder cancer Brother No problems noted. Sister Lyme disease Many complications from this Daughter No problems noted. Daughter No problems noted. Daughter No problems noted. Daughter No problems noted. 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 Head- atraumatic Eyes- PERRL ENT- oropharynx clear Neck- supple, no JVD. Lungs- clear to auscultation no wheezing or crackles Heart- regular rhythm; no murmur, no gallop. Abdomen- normal bowel sounds, soft, nontender, no distension Extremities- b/l gross lower extremity edema present,, small open wound seen on left perez with mild surrounding erythema . Neuro- alert, oriented x 3; PERRL, no facial palsy; no dysarthria; moves extremities Results & Data Results & Data Vital Signs (Past 12 Hours) Vital Signs Temp Pulse Pulse Resp BP BP Pulse Ox 11/05/24 03:30 86 24 102/85 94 11/05/24 03:00 81 18 105/75 95 11/05/24 02:54 78 11/05/24 02:30 85 24 110/68 94 11/05/24 02:00 90 24 104/73 94 11/05/24 01:30 75 26 H 108/73 96 11/05/24 01:00 85 24 109/71 95 11/05/24 00:30 62 22 109/64 97 11/05/24 00:15 77 24 101/65 98 11/04/24 23:45 77 22 105/67 95 11/04/24 23:00 71 11/04/24 22:49 37.7 C H 78 18 108/70 95 O2 Del Method O2 Flow Rate 11/05/24 03:30 Nasal Cannula 2 11/05/24 03:00 Nasal Cannula 2 11/05/24 02:54 11/05/24 02:30 Nasal Cannula 2 11/05/24 02:00 Nasal Cannula 2 11/05/24 01:30 Nasal Cannula 2 11/05/24 01:00 Nasal Cannula 2 11/05/24 00:30 Nasal Cannula 2 11/05/24 00:15 Nasal Cannula 2 11/04/24 23:45 Nasal Cannula 2 11/04/24 23:00 11/04/24 22:49 Nasal Cannula 2 Diagnostic Findings Laboratory Results WBC 14.79 K/ul (4.8-10.8) H 11/04/24 23:28 RBC 2.93 M/uL (4.70-6.10) L 11/04/24 23:28 Hgb 10.3 g/dl (14.0-18.0) L 11/04/24 23:28 Hct 31.0 % (42.0-52.0) L 11/04/24 23:28 MCV 105.8 fL (80.0-100.0) H 11/04/24 23:28 MCH 35.2 pg (25.0-34.0) H 11/04/24 23:28 MCHC 33.2 g/dL (32.0-36.0) 11/04/24 23:28 RDW Std Deviation 71.9 fL (36.4-46.3) H 11/04/24: RDW Coeff of Kuldeep 18.7 % (11.5-14.5) H 11/04/24: Plt Count 113 K/uL (130-400) L 11/04/24: MPV 9.0 fL (9.4-12.4) L 11/04/24: Immature Gran % (Auto) 0.7 % 11/04/24: Neut % (Auto) 88.8 % 11/04/24: Lymph % (Auto) 2.2 % 11/04/24: [place] % (Auto) 7.9 % 11/04/24: Eos % (Auto) 0.3 % 11/04/24: Baso % (Auto) 0.1 % 11/04/24: Neut # (Auto) 13.12 K/uL (1.40-6.50) H 11/04/24: Lymph # (Auto) 0.33 K/uL (1.20-3.40) L 11/04/24: [place] # (Auto) 1.17 K/uL (0.11-0.59) H 11/04/24: Eos # (Auto) 0.04 K/uL (0.00-0.50) 11/04/24: Baso # (Auto) 0.02 K/uL (0.00-0.20) 11/04/24: Immature Gran # (Auto) 0.11 K/uL (0.01-0.20) 11/04/24: Sodium 132 mmol/L (136-145) L 11/04/24: Potassium 3.8 mmol/L (3.5-5.1) 11/04/24: Chloride 96 mmol/L (98-107) L 11/04/24: Carbon Dioxide 33 mmol/L (21-32) H 11/04/24: Anion Gap 3 (3-11) 11/04/24: BUN 15 mg/dl (6-23) 11/04/24: Creatinine 0.62 mg/dl (0.6-1.4) 08/02/25 23:28 Est Cr Clr Drug Dosing 111.3 ml/min 11/04/24 23:28 eGFR 100.30 11/04/24 23:28 BUN/Creatinine Ratio 24.2 (10-20) H 11/04/24 23:28 Glucose 105 mg/dl (70-99(Fasting)) H 11/04/24 23:28 Lactate 1.0 mmol/L (0.4-2.0) 11/04/24 23:28 Calcium 7.8 mg/dl (8.6-10.3) L 11/04/24 23:28 Magnesium 1.7 mg/dl (1.7-2.4) 11/04/24 23:28 Total Bilirubin 0.8 mg/dl (0.2-1.0) 11/04/24 23:28 Direct Bilirubin 0.2 mg/dl (0-0.2) 11/04/24 23:28 AST 17 U/L (13-39) 11/04/24 23:28 ALT 23 U/L (7-52) 11/04/24 23:28 Alkaline Phosphatase 85 U/L (34-104) 11/04/24 23:28 Troponin I High Sens 25.6 pg/ml (0-20) H 11/05/24 01:24 Total Protein 5.1 gm/dl (6.0-8.3) L 11/04/24 23:28 Albumin 2.5 gm/dl (3.4-5.0) L 11/04/24 23:28 Procalcitonin 0.19 ng/ml (0-0.5) 11/04/24 23:28 Urine Color Yellow 11/05/24 00:00 Urine Appearance Clear (Clear) 11/05/24 00:00 Urine pH 8.0 (4.5-7.5) H 11/05/24 00:00 Ur Specific [place] 1.009 (1.000-1.030) 11/05/24 00:00 Urine Protein Negative (Negative) 11/05/24 00:00 Urine Glucose (UA) Negative (Negative) 11/05/24 00:00 Urine Ketones Negative (Negative) 11/05/24 00:00 Urine Blood Negative (Negative) 11/05/24 00:00 Urine Nitrite Negative (Negative) 11/05/24 00:00 Urine Bilirubin Negative (Negative) 11/05/24 00:00 Urine Urobilinogen Negative (Negative) 11/05/24 00:00 Ur Leukocyte Esterase Negative (Negative) 11/05/24 00:00 Urine Comment 11/05/24 00:00 Adenovirus (PCR) Not Detected (NotDetected) 11/04/24 23:28 B. pertussis DNA (PCR) Not Detected (NotDetected) 11/04/24 23:28 B.parapertussis DNA PCR Not Detected (NotDetected) 11/04/24 23:28 C. pneumoniae DNA (PCR) Not Detected (NotDetected) 11/04/24 23:28 Coronavirus OC43 (PCR) Not Detected (NotDetected) 11/04/24 23:28 Coronavirus HKU1 (PCR) Not Detected (NotDetected) 11/04/24 23:28 Coronavirus 229E (PCR) Not Detected (NotDetected) 11/04/24 23:28 SARS-CoV-2 (PCR) Not Detected (NotDetected) 11/04/24 23:28 Coronavirus NL63 (PCR) Not Detected (NotDetected) 11/04/24 23:28 Human Metapneumovir PCR Not Detected (NotDetected) 11/04/24 23:28 Influenza Type A (PCR) Not Detected (NotDetected) 11/04/24 23:28 Influenza Type B (PCR) Not Detected (NotDetected) 11/04/24 23:28 M. pneumoniae (PCR) Not Detected (NotDetected) 11/04/24 23:28 Parainfluenza 1 (PCR) Not Detected (NotDetected) 11/04/24 23:28 Parainfluenza 2 (PCR) Not Detected (NotDetected) 11/04/24 23:28 Parainfluenza 3 (PCR) Not Detected (NotDetected) 11/04/24 23:28 Parainfluenza 4 (PCR) Not Detected (NotDetected) 11/04/24 23:28 RSV (PCR) Not Detected (NotDetected) 11/04/24 23:28 Entero/Rhino (PCR) Not Detected (NotDetected) 11/04/24 23:28 Impressions Chest X-Ray 11/04/24 23:15 EXAM: XR chest 1V portable CLINICAL HISTORY: Sepsis TECHNIQUE: An X-ray image of the chest is obtained in AP projection. COMPARISON: 10/23/2024 CR. FINDINGS: Pulmonary Parenchyma: There are emphysematous changes in both lungs. Interstitial thickening, reticulations with fibrotic changes are identified in both lungs, more pronounced in both lower zones. A tiny nodular opacity in the right mid lower zone. Pleural thickening is identified at both costophrenic angles. Both hilae are prominent. No evidence of consolidation or collapse. Heart and Mediastinum: Heart size is mildly enlarged. No mediastinal widening or masses. No hilar or mediastinal lymphadenopathy. Bony Thorax: Bony thorax appears intact without fractures or deformities. Degenerative changes are seen in thoracic spine. Soft Tissues: Soft tissues overlying the chest wall are unremarkable. Port-A-Cath is identified on the right side with its tip in the superior vena cava. The cardiac pacemaker is projecting over the left hemithorax. IMPRESSION: 1. Emphysematous changes in both lungs. 2. Interstitial thickening, reticulations with fibrotic changes in both lungs, more pronounced in both lower zones. A CT scan is advised for further evaluation. 3. Cardiomegaly. 4. Findings are interval stable when compared to the prior CR image. Electronically signed by Bismark Stiles 11-05-2024 02:04 AM ECG Additional Comments: ECG. Atrial sensed ventricular paced rhythm rate of 87. Code Status & VTE Plan VTE Prophylaxis Plan VTE Prophylaxis will be ordered: Yes
[2024-11-05] MEDS ORDERED: NITROGLYCERIN SL 0.4 MG/TAB TAB SL PRN (04:11)
[2024-11-05] MEDS ORDERED: POLYETHYLENE (MIRALAX) 17 GM PACK PO PRN (04:11)
[2024-11-05] MEDS ORDERED: ACETAMINOPHEN 500 MG TAB PO PRN (04:11)
[2024-11-05 07:15] LABS: Hematocrit (blood only) 32.4 % (42.0-52.0); Hemoglobin 10.9 g/dl (14.0-18.0); Mean Corpuscular Hemoglobin 35.0 pg (25.0-34.0); Mean Corpuscular Volume 104.2 fL (80.0-100.0); Platelet Count 117 K/uL (130-400); RDW Standard Deviation 70.4 fL (36.4-46.3); Red Blood Count 3.11 M/uL (4.70-6.10); White Blood Count 17.28 K/ul (4.8-10.8)
--- NOTE | 2024-11-05 07:27 | Electrocardiogram Report ---
Test Reason : Blood Pressure : */* mmHG Vent. Rate : 87 BPM Atrial Rate : 87 BPM P-R Int : 176 ms QRS Dur : 108 ms QT Int : 374 ms P-R-T Axes : 30 -31 28 degrees QTcB Int : 450 ms Atrial-sensed ventricular-paced rhythm Abnormal ECG When compared with ECG of 23-Oct-2024 02:12, Vent. rate has increased by 19 bpm Confirmed by Hood Young ([id number]) on 11/05/2024 7:26:40 AM Referred By: REFERRED SELF Confirmed By: Hood Young
[2024-11-05 07:31] LABS: Anion Gap 7.0 (3-11); Blood Urea Nitrogen 17.0 mg/dl (6-23); Calcium 8.0 mg/dl (8.6-10.3); Carbon Dioxide 32.0 mmol/L (21-32); Chloride 94.0 mmol/L (98-107); Creatinine Clr Calc Pharmacy 121.1 ml/min; Glucose 164.0 mg/dl (70-99(Fasting)); Magnesium 1.6 mg/dl (1.7-2.4); Potassium 3.8 mmol/L (3.5-5.1); Sodium 133.0 mmol/L (136-145)
[2024-11-05 07:33] LABS: Immature Granulocytes # (auto) 0.15 K/uL (0.01-0.20); Immature Granulocytes % (auto) 0.9 %; Ovalocytes 1+; Polychromasia 1+
[2024-11-05] MEDS: cefTRIAXone SODIUM 2,000 MG/50 ML BAG IV SCH (08:44)
--- NOTE | 2024-11-05 08:48 | Hospitalist Progress Note ---
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 Patient had a similar presentation on 10/23/2024. During that admission echo showed EF of 45 to 50% and grade 1 diastolic dysfunction, he was treated with IV diuresis and discharged on his home Lasix 40 mg daily and also added spironolactone 12.5 mg on Wednesday and Fridays. Patient had reaccumulation of lower extremity edema after discharge from the hospital. Bilateral lower extremity edema Possible acute on chronic systolic CHF Possible side effect of steroids Patient had reaccumulation of lower extremity edema after discharge from the hospital. Echo done on 10/23/2024 shows EF of 45 to 50%. Grade 1 diastolic dysfunction Will continue with IV Lasix 40 mg twice daily and continue home spironolactone Daily weights I's and O's Telemetry Cardiac consult in a.m. for further recommendations;; will likely transition him to torsemide 20 mg twice a day Acute urinary retention status post Jackson placement Patient was found to have urinary retention for which Jackson was placed in the ED Urine analysis does not show signs of infection Plan to do trial of void prior to discharge Possible cellulitis of left lower extremity Small on the left perez with mild erythema surrounding Will continue with Rocephin and monitor for response Leukocytosis Chronically elevated On the recent admission on peripheral smear, appeared to be reactive but with history of dysplastic changes seen and cannot exclude myelodysplastic syndrome and heme-onc referral recommended to patient. Patient is following with heme-onc History of paroxysmal atrial fibrillation On metoprolol succinate and Eliquis Hyperlipidemia On statin COPD Pulmonary fibrosis Continue home inhalers Chronic right popliteal thrombus On Eliquis Complete heart block status post PPM Chronic bundle-branch block Hypertension On metoprolol succinate and diuretics Chronic anemia Hemoglobin 10.3 Metastatic non-small cell lung cancer So far received 3 lines of chemo treatment for lung cancer PET scan on 10/04/2024 showed mildly increased size and metabolic activity of the left lower lobe nodule without any evidence of new disease and persistent hypermetabolic activity of the bilateral adrenal glands which have enlarged Currently not on any chemo. Per heme/onco :Plan to follow CBC and CMP.And plan to repeat PET scan in 3 months Following with heme-onc DVT prophylaxis On Eliquis Disposition Telemetry CODE STATUS full code Admission and Anticipated Discharge Date Admission Date: November 05, 2024 Subjective Patient seen and examined at bedside. He is alert oriented x 3; not in distress. He is on 2 L of oxygen Jackson catheter in place draining clear urine Review of Systems Review of Systems: All systems reviewed & are unremarkable except as noted in Subjective Physical Exam Physical Exam: General-Not in distress. Head- atraumatic Eyes- PERRL ENT- oropharynx clear Neck- supple, no JVD. Lungs- clear to auscultation no wheezing or crackles Heart- regular rhythm; no murmur, no gallop. Abdomen- normal bowel sounds, soft, nontender, no distension Extremities- b/l 2 +lower extremity edema present,, small open wound seen on left perez with mild surrounding erythema . Neuro- alert, oriented x 3; PERRL, no facial palsy; no dysarthria; moves extremities Results & Data Results & Data Vital Signs (Past 12 Hours) Vital Signs Temp Pulse Pulse Resp BP BP Pulse Ox 11/05/24 07:15 81 20 89/58 L 96 11/05/24 06:56 97 H 11/05/24 05:28 20 106/69 97 11/05/24 04:16 74 20 100/61 97 11/05/24 04:15 95 11/05/24 04:00 78 22 96/64 L 97 11/05/24 03:30 86 24 102/85 94 11/05/24 03:00 81 18 105/75 95 11/05/24 02:54 78 11/05/24 02:30 85 24 110/68 94 11/05/24 02:00 90 24 104/73 94 11/05/24 01:30 75 26 H 108/73 96 11/05/24 01:00 85 24 109/71 95 11/05/24 00:30 62 22 109/64 97 11/05/24 00:15 77 24 101/65 98 11/04/24 23:45 77 22 105/67 95 11/04/24 23:00 71 08/02/25 22:49 37.7 C H 78 18 108/70 95 O2 Del Method O2 Flow Rate 11/05/24 07:15 Nasal Cannula 2 11/05/24 06:56 11/05/24 05:28 Nasal Cannula 2 11/05/24 04:16 Nasal Cannula 2 11/05/24 04:15 Nasal Cannula 2 11/05/24 04:00 Nasal Cannula 2 11/05/24 03:30 Nasal Cannula 2 11/05/24 03:00 Nasal Cannula 2 11/05/24 02:54 11/05/24 02:30 Nasal Cannula 2 11/05/24 02:00 Nasal Cannula 2 11/05/24 01:30 Nasal Cannula 2 11/05/24 01:00 Nasal Cannula 2 11/05/24 00:30 Nasal Cannula 2 11/05/24 00:15 Nasal Cannula 2 11/04/24 23:45 Nasal Cannula 2 11/04/24 23:00 11/04/24 22:49 Nasal Cannula 2
[2024-11-05] MEDS: APIXABAN 5 MG TABLET PO SCH (08:50)
[2024-11-05] MEDS: CALCIUM 600MG + VIT D 400 IU TAB PO SCH (08:52)
[2024-11-05] MEDS: METOPROLOL SUCC 25MG EXT REL TAB PO SCH (08:52)
[2024-11-05] MEDS: ATORVASTATIN 40 MG TAB PO SCH (08:53)
[2024-11-05] MEDS: MULTIVITAMIN TAB PO SCH (08:53)
[2024-11-05] MEDS: FERROUS SULFATE 325 MG TAB PO SCH (08:53)
[2024-11-05] MEDS: FLUTICASONE FUROATE 100MCG 14 PUFFS/INHALER INH SCH (08:55)
[2024-11-05] MEDS: UMECLIDINIUM/VILANTEROL 62.5/25MCG 7 PUFFS/INHALER INH SCH (08:56)
[2024-11-05] MEDS: FUROSEMIDE 40 MG/4 ML VIAL IV SCH (08:59)
[2024-11-05] MEDS ORDERED: NON-FORMULARY MEDICATION (Fluticasone-Umeclidin-Vilanter [Trelegy Ellipta] 100-62.5-25 mcg INH SCH (09:00)
--- NOTE | 2024-11-05 10:23 | Cardiology Consultation ---
Date of Consultation November 05, 2024 Assessment & Plan (1) Bilateral edema of lower extremity: Volume overload appears multifactorial in etiology - DVT, high-dose steroids, chemotherapy, anemia, hypoalbuminemia, systolic and diastolic heart failure all likely contributing factors. Agree with current dose of furosemide 40 mg IV twice daily. Jackson catheter is currently in place. Continue current dose of spironolactone 12.5 mg by mouth on Wednesdays and Fridays. The patient's outpatient furosemide dose was increased from 20 mg to 40 mg at the previous admission a week ago, likely requires higher dose of furosemide or transition to torsemide 20 mg twice daily or more. (2) Acute hyponatremia: -Monitor hyponatremia with diuretic therapy. History of Present Illness Attending Physician: Ilir Fountain MD History of Present Illness Joaquin Zee"Scott'Bridger Molina is a 74 year old male seen in cardiology consultation per the request of Dr Henry for the evaluaiton of edema. Patient recently seen on 10/24/24 by our service for similar concerns. Consult then noted significant uring output after several doses of furosemide 20 mg IV. Patient presents with ongoing lower extremity edema and weeping of the left leg. As noted previously, in 2022 CT calcium scoring revealed an incidental left- sided pulmonary mass along with pulmonary nodules, pulmonary fibrosis, and emphysema. Biopsy with non-small cell lung cancer compatible with adenocarcinoma with possible focal squamous differentiation with PET/CT revealing metastatic disease involving the bilateral lung, mediastinal lymph nodes, bone metastases and adrenal metastasis. Patient initially treated with capmatinib, unfortunately with follow-up imaging revealing progression. He was then treated with pemetrexed plus carboplatin and Keytruda though with significant side effects and continued disease progression. Most recently patient treated with docetaxel. Patient notes significant side effects from therapies including generalized weakness fatigue, and significant fluid retention. Patient discharged on 10/25/24 on furosemide 40 mg PO QAM and spironolactone 25 mg Tablet 12.5 mg PO [id number]. History: Intermittent complete heart block status post permanent Medtronic pacemaker implantation on September 30, 2022 Generator: Medtronic Cynthia XT DR SCOUT Wilkerson [id number], serial number [id number]. Right atrial lead: Medtronic 5076-52 cm, serial number [id number]. Left bundle lead: Medtronic 3830-69 cm, serial number [id number].Asymptomatic paroxysmal atrial fibrillation [id number] 4 points Chronic left bundle branch block Hypertension Dyslipidemia History of right lower extremity DVT following trauma and surgery, postoperative Non-small cell lung cancer initially diagnosed in November 2022 Pulmonary fibrosis COPD Sleep apnea Reformed tobacco user GERD Obstructive sleep apnea Insomnia Family Histor: Mother with CHF at 79. Father had bladder cancer, passing at 91. Social History: Reformed smoker. No significant alcohol. No illegal drug use. 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 Lives alone. . Allergies Allergy/AdvReac Type Severity Reaction Status Date / Time No Known Allergies Allergy Verified 11/05/24 00:24 Home Medications Medication Instructions Recorded Confirmed Type apixaban 5 mg (74 tabs) tablets in 5 mg PO BID 10/01/24 11/05/24 History a dose pack (Eliquis) atorvastatin 40 mg tablet 40 mg PO QAM 10/01/24 11/05/24 History fluticasone fur. 100 mcg-umeclid 1 inh inhalation DAILY 10/01/24 11/05/24 History 62.5 mcg-vilant 25 mcg inhalat.powder (Trelegy Ellipta) metoprolol succinate 25 mg 25 mg PO QAM 10/01/24 11/05/24 History tablet,extended release 24 hr multivitamin 1 tab PO QAM 10/01/24 11/05/24 History acetaminophen 500 mg tablet 1,000 mg PO BID PRN Pain 10/23/24 11/05/24 History calcium 600 mg (as 1 tab PO DAILY 10/23/24 11/05/24 History carbonate)-vitamin D3 5 mcg (200 unit) tablet dexamethasone 4 mg tablet 4 mg PO QAM 10/23/24 11/05/24 History ferrous sulfate 325 mg (65 mg 325 mg PO DAILY 10/23/24 11/05/24 History iron) tablet (iron) loratadine 10 mg tablet 10 mg PO DAILY PRN Congestion 10/23/24 11/05/24 History furosemide 40 mg tablet 40 mg PO QAM #30 tabs 10/25/24 11/05/24 Rx spironolactone 25 mg tablet 12.5 mg PO 3XWK 11/05/24 11/05/24 History Patient History Medical History DVT (deep venous thrombosis) Right leg LBBB (left bundle branch block) Surgical History Hx of tonsillectomy H/O right knee surgery Meniscus surgery History of surgery Lumbar spine surgery History of bronchoscopy Family History Mother , 79yo CHF (congestive heart failure) Father , 91yo Bladder cancer Brother No problems noted. Sister Lyme disease Many complications from this Daughter No problems noted. Daughter No problems noted. Daughter No problems noted. Daughter No problems noted. 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" - How many Children do You have: 4 Feels Safe at Home: Yes Safety Concerns: Feels Safe At This Time Diet: regular caffeine: No during the past year weight has: decreased > 10 lbs Assistive Devices: Walker and Other Review of Systems Review of Systems: All systems reviewed & are unremarkable except as noted in HPI & below Physical Exam Physical Exam: Temp Pulse Resp BP Pulse Ox O2 Del Method O2 Flow Rate 37.7 C H 90 18 99/63 L 96 Nasal Cannula 2 11/04/24 22:49 11/05/24 09:55 11/05/24 09:55 11/05/24 09:55 11/05/24 09:55 11/05/24 09:55 11/05/24 09:55 General: Frail, chronically ill in appearance, no acute Eyes: conjunctiva are pink and non-injected, sclera clear Neck: normal jugular venous pulse, no hepatojugular reflux Chest: normal shape and normal respiratory effort -Left infraclavicular device pocket loco n dry and intact, no erythema Lungs: clear to auscultation and percussion Cardiac Exam: - regular heart sounds, no murmurs, rubs, or gallops, no jugular venous distention Abdomen: abdomen soft, non-tender, no abnormal masses and no hepatosplenomegaly Musculoskeletal: no gait disturbance, no weakness Extremities:2+ bilateral lower extremity edema, slightly worse in the left leg Neuro:awake, conversant, follows commands, no focal motor deficits Results & Data Diagnostic Findings Pacemaker (Medtronic) interrogation last on July 14, 2024 demonstrated appropr iate function, 10.4 years remaining longevity. Time in AT/AF: 6.2%. Atrial paced 10.5%. Ventricular paced 98.9%. Telemetry: Sinus with ectopy, heart rates in the80s to 90s predominantly October 23, 2024 TTE Interpretation Summary ([facility], Dr. Levi): The left ventricle was normal in size. Normal left ventricular wall thickness. Apical wall motion abnormality may reflect pacemaker activation. No regional wall motion abnormalities noted. Left ventricular ejection fraction 45 to 50%. Grade 1 diastolic dysfunction. No valvular disease. Doppler findings do not suggest pulmonary hypertension. Coding Level of Care Code 69892 IN/OBS CONSULT LVL 4,60M Diagnoses Bilateral edema of lower extremity R60.0 Acute hyponatremia E87.1 Time Spent (min) 60
[2024-11-05] MEDS: dexAMETHasone 4 MG in SYRINGE 0 ML IV ONE (21:52)
[2024-11-05] MEDS: ALBUMIN 25% 12.5 GM/50 ML VIAL IV ONE (21:52)
[2024-11-06 06:12] LABS: Hematocrit (blood only) 28.8 % (42.0-52.0); Hemoglobin 9.5 g/dl (14.0-18.0); Mean Corpuscular Hemoglobin 34.5 pg (25.0-34.0); Mean Corpuscular Volume 104.7 fL (80.0-100.0); Platelet Count 117 K/uL (130-400); RDW Standard Deviation 68.7 fL (36.4-46.3); Red Blood Count 2.75 M/uL (4.70-6.10); White Blood Count 9.43 K/ul (4.8-10.8)
[2024-11-06 06:27] LABS: Anion Gap 4.0 (3-11); Blood Urea Nitrogen 23.0 mg/dl (6-23); Calcium 8.7 mg/dl (8.6-10.3); Carbon Dioxide 36.0 mmol/L (21-32); Chloride 93.0 mmol/L (98-107); Creatinine Clr Calc Pharmacy 102.1 ml/min; Glucose 146.0 mg/dl (70-99(Fasting)); Potassium 4.1 mmol/L (3.5-5.1); Sodium 133.0 mmol/L (136-145)
[2024-11-06 06:29] LABS: Immature Granulocytes % (auto) 1.2 %
[2024-11-06 06:30] LABS: Immature Granulocytes # (auto) 0.11 K/uL (0.01-0.20)
[2024-11-06 07:23] LABS: Polychromasia 1+
--- NOTE | 2024-11-06 08:26 | Hospitalist Progress Note ---
Date of Service November 06, 2024 Assessment & Plan (1) Heart failure, systolic, with acute decompensation: Plan: 74-year-old male with past medical history significant for dyslipidemia, COPD, pulmonary fibrosis, sleep apnea, paroxysmal atrial fibrillation, hypertension, left bundle branch block, history of CAD, history of complete heart block status post permanent pacemaker, 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 Patient had a similar presentation on 10/23/2024. During that admission echo showed EF of 45 to 50% and grade 1 diastolic dysfunction, he was treated with IV diuresis and discharged on his home Lasix 40 mg daily and also added spironolactone 12.5 mg on Wednesday and Fridays. Patient had reaccumulation of lower extremity edema after discharge from the hospital. Bilateral lower extremity edema Possible acute on chronic systolic CHF Possible side effect of steroids Patient had reaccumulation of lower extremity edema after discharge from the hospital. Echo done on 10/23/2024 shows EF of 45 to 50%. Grade 1 diastolic dysfunction Patient diuresed with IV Lasix with improvement in lower extremity edema. Discussed the underlying cause for retention to be use of steroid. Patient has history of metastatic lung cancer with no significant improvement on treatment; he is on Decadron 4 mg. I discussed regarding decreasing the dose with his oncologist Dr. Trinidad over [place] text; recommended to decrease Decadron gradually. Will change him to p.o. torsemide. Goals of care also discussed; patient acknowledges that he has metastatic lung cancer is not curable; he has been hospitalized multiple times in recent month. He reports that he does not want to go to jail; wants to remain in his house for remaining of his life. He is open to hospice care at home so that he will have hospital bed, assistive device at home. I offered to talk with his daughter as well; he declined at this time. Palliative care has been consulted for comanagement to assist with goals of care discussion and possible hospice transition at home. Dose of Decadron decreased to 2 mg once a day Acute urinary retention status post Jackson placement Patient was found to have urinary retention for which Jackson was placed in the ED Urine analysis does not show signs of infection Plan to do trial of void prior to discharge Possible cellulitis of left lower extremity Small on the left perez with mild erythema surrounding Will continue with Rocephin and monitor for response Leukocytosis Chronically elevated History of paroxysmal atrial fibrillation On metoprolol succinate and Eliquis-continue Hyperlipidemia On statin-continue COPD Pulmonary fibrosis Continue home inhalers Chronic right popliteal thrombus On Eliquis Complete heart block status post PPM Chronic bundle-branch block Hypertension On metoprolol succinate and diuretics Chronic anemia Hemoglobin 9 to 10; stable Metastatic non-small cell lung cancer So far received 3 lines of chemo treatment for lung cancer PET scan on 10/04/2024 showed mildly increased size and metabolic activity of the left lower lobe nodule without any evidence of new disease and persistent hypermetabolic activity of the bilateral adrenal glands which have enlarged Currently not on any chemo. Per heme/onco :Plan to follow CBC and CMP.And plan to repeat PET scan in 3 months Following with heme-onc Palliative care consulted for comanagement for goals of care discussion given patient's recurrent frequent hospitalization and metastatic lung cancer. DVT prophylaxis On Eliquis Disposition Telemetry CODE STATUS full code Time spent evaluating patient, direct bedside care, chart review, placing orders, interpretation of diagnostic studies, discussion with consultants, patient, and family members, as well as other required patient management activities is 60 minutes Please note the above document was generated using voice recognition software. It may contain grammatical, syntax or spelling errors. Any formal questions or concerns about the content, text or information contained within the body of this dictation should be directly addressed to the provider for clarification Admission and Anticipated Discharge Date Admission Date: November 05, 2024 Subjective Patient seen and examined at bedside. Lower extremity edema has been gradually improving. Denies fever, chills, chest pain, abdominal pain or urinary symptoms. Review of Systems Review of Systems: All systems reviewed & are unremarkable except as noted in Subjective Physical Exam Physical Exam: General-Not in distress. Head- atraumatic Eyes- PERRL ENT- oropharynx clear Neck- supple, no JVD. Lungs- clear to auscultation no wheezing or crackles Heart- regular rhythm; no murmur, no gallop. Abdomen- normal bowel sounds, soft, nontender, no distension Extremities- b/l 1 +lower extremity edema present,, small open wound seen on left perez with mild surrounding erythema . Neuro- alert, oriented x 3; PERRL, no facial palsy; no dysarthria; moves extremities Results & Data Results & Data Vital Signs (Past 12 Hours) Vital Signs Temp Pulse Pulse Resp BP Pulse Ox O2 Del Method 11/06/24 07:05 36.3 C L 70 18 98/66 L 96 Nasal Cannula 11/06/24 02:54 36.4 C L 65 18 101/62 96 Nasal Cannula 11/05/24 23:52 78 94/62 L 11/05/24 22:50 62 11/05/24 22:44 36.4 C L 61 16 87/57 L 96 Nasal Cannula O2 Flow Rate 11/06/24 07:05 2 11/06/24 02:54 2.0 11/05/24 23:52 11/05/24 22:50 11/05/24 22:44 2.0
[2024-11-06] MEDS: GABAPENTIN 100 MG CAP PO SCH (08:58)
[2024-11-06] MEDS: LORATADINE 10 MG TAB PO PRN (08:59)
[2024-11-06] MEDS: SPIRONOLACTONE 12.5 MG TAB PO SCH (09:07)
--- NOTE | 2024-11-06 09:20 | Palliative Care Consultation ---
Date of Consultation November 06, 2024 Assessment & Plan (1) Palliative care by specialist: Met with pt at bedside, no visitors present. Introduced Palliative Medicine and explained our role in advanced care planning, symptom management and navigation through the progression of life limiting disease. Patient was receptive to palliative services for goals of care discussions. Reviewed we are different from hospice, a home health nurse visiting service. (2) Counseling regarding advanced directives and goals of care: ACP discussion held with pt from 12:00 - 12:30. 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 He shared that he had been told this morning that "it does not look gooD" and that his cancer is incurable. He shared that Dr Triindad had told him recently that any cancer directed therapies would do more harm than good, given his frailty. He shared that he has a home which is a duplex, but for the last several months he has been living in his shop. He shared that his brother has been discussing hospice care with CM and "they are making all the plans". I asked him what he most hopes for and he shared that he values being "at work surrounded by my guys" over all. He shared that some of his staff have been with him for decades and his general administrator ED supports him through all of his appointments and illness. We discussed plans for the future and he shared that if his cancer is going to keep making him sick and there is no cure, he would not want to return to the hospital. He shared that he believes that his prother and friend Ed are arranging for "hospice care at the shop." We discussed at length the distinction between current level of care (DNR/DNI with ongoing life prolonging therapies) vs comfort directed care/hospice care. Discussed that as pt's illness progresses he will likely require progressively more assistance with ADLs as well as more direct nursing care. He denied concern for this, sharing that Ed is his executor and they have already made all the arrangements for him to be discharged "back to the shop" where his friends will "help me with whatever I might need" and he will receive hospice care. He states that he has friends and family that will provide 24h care. He is adamantly opposed to possibility of SNF or even [facility] in future and states he has laid out a plan for him to stay at home throughout the end of his life. He was unable to describe this plan and stated "Ed has it all sorted out". Discussed hospice benefit: an interdisciplinary program offered by nurses, nurses aides, social workers, chaplains and a medical concierge for patients with a terminal condition and a life expectancy of less than 6 months. This is covered by Medicare at 100%/no out of pocket expense to patient and all meds/supplies needed by patient for the reason they are on hospice are paid for/covered by hospice. The goal is assure quality of life of the patient in their home setting (home, group home, inpatient hospice setting) by providing symptoms management, psychosocial and spiritual support. However, they cannot offer 24 hours care and if the family is unable to provide that care, they will have to consider personal care with out of pocket cost vs. group home placement. We discussed the goals of hospice as a patient service and the goals of care; we discussed EOL trajectories and transitions martita the emotional impact of realizing mortality as a concrete reality from prior abstract considerations. Pt was reassured that no matter where they are along this trajectory, they are not alone - their medical team will remain by their side through their journey. Discussed the pros/cons of accepting help when especially weakened and distressed by pain-which would also help provide relief/decrease caregiver burden/strain. Pt shared that he believes that hospice has been scheduled to come see him here in the hospital this evening. I discussed this with CM and attending Dr. Fountain, no hospice referral has been made by hospital. Patient was unclear on details, but shared that he will arrange a time for a GOC discussion with him and his brother tomorrow. Contact information shared for pt to call with time for meeting. Plan family GOC discussion to be held tomorrow, time TBD by pt. History of Present Illness Reason for Consultation: goals of care Requesting Physician: Ilir Fountain MD Attending Physician: Ilir Fountain MD History of Present Illness 74-year-old male with past medical history significant for dyslipidemia, COPD, pulmonary fibrosis, sleep apnea, paroxysmal atrial fibrillation, hypertension, left bundle branch block, history of CAD, history of complete heart block status post permanent pacemaker, 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 Patient had a similar presentation on 10/23/2024. During that admission echo showed EF of 45 to 50% and grade 1 diastolic dysfunction, he was treated with IV diuresis and discharged on his home Lasix 40 mg daily and also added spironolactone 12.5 mg on Wednesday and Fridays. Patient had reaccumulation of lower extremity edema few days after discharge from the [facility]ital. Per previous notes, 2022 CT calcium scoring revealed an incidental left-sided pulmonary mass along with pulmonary nodules, pulmonary fibrosis, and emphysema. Biopsy with non-small cell lung cancer compatible with adenocarcinoma with possible focal squamous differentiation with PET/CT revealing metastatic disease involving the bilateral lung, mediastinal lymph nodes, bone metastases and adrenal metastasis. Patient initially treated with capmatinib, unfortunately with follow-up imaging revealing progression. He was then treated with pemetrexed plus carboplatin and Keytruda though with significant side effects and continued disease progression. Most recently patient treated with docetaxel. Patient reportedly with significant side effects from therapies including generalized weakness fatigue, and significant fluid retention. Allergies Allergy/AdvReac Type Severity Reaction Status Date / Time No Known Allergies Allergy Verified 11/05/24 00:24 Home Medications Medication Instructions Recorded Confirmed Type apixaban 5 mg (74 tabs) tablets in 5 mg PO BID 10/01/24 11/05/24 History a dose pack (Eliquis) atorvastatin 40 mg tablet 40 mg PO QAM 10/01/24 11/05/24 History fluticasone fur. 100 mcg-umeclid 1 inh inhalation DAILY 10/01/24 11/05/24 History 62.5 mcg-vilant 25 mcg inhalat.powder (Trelegy Ellipta) metoprolol succinate 25 mg 25 mg PO QAM 10/01/24 11/05/24 History tablet,extended release 24 hr multivitamin 1 tab PO QAM 10/01/24 11/05/24 History acetaminophen 500 mg tablet 1,000 mg PO BID PRN Pain 10/23/24 11/05/24 History calcium 600 mg (as 1 tab PO DAILY 10/23/24 11/05/24 History carbonate)-vitamin D3 5 mcg (200 unit) tablet dexamethasone 4 mg tablet 4 mg PO QAM 10/23/24 11/05/24 History ferrous sulfate 325 mg (65 mg 325 mg PO DAILY 10/23/24 11/05/24 History iron) tablet (iron) loratadine 10 mg tablet 10 mg PO DAILY PRN Congestion 10/23/24 11/05/24 History furosemide 40 mg tablet 40 mg PO QAM #30 tabs 10/25/24 11/05/24 Rx spironolactone 25 mg tablet 12.5 mg PO 3XWK 11/05/24 11/05/24 History gabapentin 200 mg PO TID 11/06/24 11/06/24 History trazodone 100 mg PO 11/06/24 History Patient History Medical History DVT (deep venous thrombosis) Right leg LBBB (left bundle branch block) Surgical History Hx of tonsillectomy H/O right knee surgery Meniscus surgery History of surgery Lumbar spine surgery History of bronchoscopy Family History Mother , 79yo CHF (congestive heart failure) Father , 91yo Bladder cancer Brother No problems noted. Sister Lyme disease Many complications from this Daughter No problems noted. Daughter No problems noted. Daughter No problems noted. Daughter No problems noted. Social History Smoking Status: Former smoker Tobacco Type: Cigarettes Cigarettes Per Day: Smoked "a couple yrs"; Second Hand Exposure: Yes; Do You Dip or Chew Tobacco: No; Hx Alcohol Use: No Hx Substance Use: No Preferred Language: German Communication Ability: Effective Visual Impairment: No Limitations Hearing Ability: Normal Cash Surrender Calculator Required: No Beliefs That Will Affect Care: None marital status: Current Living Situation: Alone current occupational status: employed current occupation: Works at "the shop" - How many Children do You have: 4 Feels Safe at Home: Yes Safety Concerns: Feels Safe At This Time Diet: regular caffeine: No during the past year weight has: decreased > 10 lbs Assistive Devices: Cane Review of Systems Review of Systems: All systems reviewed & are unremarkable except as noted in HPI & below Physical Exam Constitutional: well developed, + cachectic and + frail appearing; no acute distress Eyes: PERRL, conjunctivae normal, anicteric sclerae ENMT: external ear and nose normal, oropharynx normal Neck: trachea midline, no thyromegaly Respiratory: normal respiratory effort, lungs clear to auscultation Cardiovascular: Rate/Rhythm: regular rate and regular rhythm Gastrointestinal (Abdomen): normal bowel sounds, soft, nontender, no hepatosplenomegaly Musculoskeletal: no cyanosis or clubbing, extremities motor strength 5/5 generalized weakness Neurologic: PERRL, EOMI, accommodation nl, no face palsy, no dysarthria Psychiatric: A+Ox3, euthymic affect Results & Data Vital Signs (Past 12 Hours) Vital Signs Temp Pulse Pulse Resp BP Pulse Ox O2 Del Method 11/06/24 08:00 95/54 L 11/06/24 07:05 36.3 C L 70 18 98/66 L 96 Nasal Cannula 11/06/24 02:54 36.4 C L 65 18 101/62 96 Nasal Cannula 11/05/24 23:52 78 94/62 L 11/05/24 22:50 62 11/05/24 22:44 36.4 C L 61 16 87/57 L 96 Nasal Cannula O2 Flow Rate 11/06/24 08:00 11/06/24 07:05 2 11/06/24 02:54 2.0 11/05/24 23:52 11/05/24 22:50 11/05/24 22:44 2.0 Laboratory Results Abnormal lab results 11/05/24 11/06/24 Range/Units 09:16 05:22 RBC 2.75 L (4.70-6.10) M/uL Hgb 9.5 L (14.0-18.0) g/dl Hct 28.8 L (42.0-52.0) % MCV 104.7 H (80.0-100.0) fL MCH 34.5 H (25.0-34.0) pg RDW Std Deviation 68.7 H (36.4-46.3) fL RDW Coeff of Kuldeep 18.0 H (11.5-14.5) % Plt Count 117 L (130-400) K/uL MPV 9.2 L (9.4-12.4) fL Neut # (Auto) 8.72 H (1.40-6.50) K/uL Lymph # (Auto) 0.17 L (1.20-3.40) K/uL Sodium 133 L (136-145) mmol/L Chloride 93 L (98-107) mmol/L Carbon Dioxide 36 H (21-32) mmol/L BUN/Creatinine Ratio 36.5 H (10-20) Glucose 146 H (70-99(Fasting)) mg/dl POC Glucose 144 H (70-99) mg/dl Diagnostic Findings Chest X-Ray 11/04/24 23:15 EXAM: XR chest 1V portable CLINICAL HISTORY: Sepsis TECHNIQUE: An X-ray image of the chest is obtained in AP projection. COMPARISON: 10/23/2024 CR. FINDINGS: Pulmonary Parenchyma: There are emphysematous changes in both lungs. Interstitial thickening, reticulations with fibrotic changes are identified in both lungs, more pronounced in both lower zones. A tiny nodular opacity in the right mid lower zone. Pleural thickening is identified at both costophrenic angles. Both hilae are prominent. No evidence of consolidation or collapse. Heart and Mediastinum: Heart size is mildly enlarged. No mediastinal widening or masses. No hilar or mediastinal lymphadenopathy. Bony Thorax: Bony thorax appears intact without fractures or deformities. Degenerative changes are seen in thoracic spine. Soft Tissues: Soft tissues overlying the chest wall are unremarkable. Port-A-Cath is identified on the right side with its tip in the superior vena cava. The cardiac pacemaker is projecting over the left hemithorax. IMPRESSION: 1. Emphysematous changes in both lungs. 2. Interstitial thickening, reticulations with fibrotic changes in both lungs, more pronounced in both lower zones. A CT scan is advised for further evaluation. 3. Cardiomegaly. 4. Findings are interval stable when compared to the prior CR image. Electronically signed by Bismark Stiles 11-05-2024 02:04 AM Medications Administered Current Inpatient Medications Acetaminophen (Acetaminophen 325 Mg Tab) 650 mg PO Q4H PRN PRN Reason: Pain or Fever Stop: 12/05/24 04:10 Apixaban (Apixaban 5 Mg Tablet) 5 mg PO BID [facility] Stop: 12/05/24 08:59 Last Admin: 11/06/24 08:59 Dose: 5 mg Atorvastatin Calcium (Atorvastatin 40 Mg Tab) 40 mg PO QAM [facility] Stop: 12/05/24 08:59 Last Admin: 11/06/24 08:59 Dose: 40 mg Calcium/Vitamin D (Calcium 600mg + Vit D 400 Iu Tab) 1 tab PO DAILY [facility] Stop: 12/05/24 08:59 Last Admin: 11/06/24 09:00 Dose: 1 tab Dexamethasone (Dexamethasone 4 Mg Tab) 4 mg PO QAM [facility] Stop: 12/05/24 08:59 Last Admin: 11/06/24 08:59 Dose: 4 mg Ferrous Sulfate (Ferrous Sulfate 325 Mg Tab) 325 mg PO DAILY [facility] Stop: 12/05/24 08:59 Last Admin: 11/06/24 09:00 Dose: 325 mg Fluticasone Furoate (Fluticasone Furoate 100mcg 14 Puffs/Inhaler) 1 puffs INH DAILY [facility] Stop: 12/05/24 08:59 Last Admin: 11/06/24 09:02 Dose: 1 puffs Furosemide (Furosemide 40 Mg/4 Ml Vial) 40 mg IV BID [facility] Stop: 12/05/24 08:59 Last Admin: 11/06/24 09:06 Dose: Not Given Gabapentin (Gabapentin 100 Mg Cap) 200 mg PO TID@0700,1200,2100 [facility] Stop: 12/06/24 06:59 Last Admin: 11/06/24 08:58 Dose: 200 mg Ceftriaxone Sodium (Rocephin) 2,000 mg in 50 mls @ 100 mls/hr IV Q24H [facility] Stop: 11/12/24 08:59 Last Infusion: 11/05/24 10:07 Dose: Infused Loratadine (Loratadine 10 Mg Tab) 10 mg PO DAILY PRN PRN Reason: Congestion Stop: 12/05/24 04:10 Last Admin: 11/06/24 08:59 Dose: 10 mg Metoprolol Succinate (Metoprolol Succ 25mg Ext Rel Tab) 25 mg PO QAM [facility] Stop: 12/05/24 08:59 Last Admin: 11/06/24 09:06 Dose: Not Given Multivitamins (Multivitamin Tab) 1 tab PO QAM [facility] Stop: 12/05/24 08:59 Last Admin: 11/06/24 08:59 Dose: 1 tab Nitroglycerin (Nitroglycerin Sl 0.4 Mg/Tab Tab) 0.4 mg SL Q5M PRN PRN Reason: Chest Pain Stop: 12/05/24 04:10 Polyethylene Glycol (Polyethylene (Miralax) 17 Gm Pack) 17 gm PO DAILY PRN PRN Reason: Constipation Stop: 12/05/24 04:10 Spironolactone (Spironolactone 12.5 Mg Tab) 12.5 mg PO MoWeFr@0900 [facility] Stop: 12/06/24 08:59 Last Admin: 11/06/24 09:07 Dose: Not Given Trazodone HCl (Trazodone Hcl 100 Mg Tab) 100 mg PO [facility] Stop: 12/06/24 20:59 Umeclidinium/Vilanterol (Umeclidinium/Vilanterol 62.5/25mcg 7 Puffs/Inhaler) 1 puffs INH DAILY [facility] Stop: 12/05/24 08:59 Last Admin: 11/06/24 09:01 Dose: 1 puffs PG Care Time/CCT Total # of Minutes Spent Total Time Spent with Patient: Total time spent is greater than 50% in coordination of care (as documented) at patient's floor/unit and/or counseling patient: Advanced Care Planning 09399 Advanced Care Planning 30 [place] [address] IN/OBS CONSULT LVL 4,60M Patient Type New History Expanded Problem Focused Exam Expanded Problem Focused Medical Decision Making Moderate Complexity Diagnoses Palliative care by specialist Z51.5 Counseling regarding advanced directives and goals of care Z71.89 Additional Codes Advanced Care Planning - 92519 Advanced Care Planning 30 Min: 94871 Advanced Care Planning 30 Min ([id number])
--- NOTE | 2024-11-06 10:40 | Cardiology Progress Note ---
Date of Service November 06, 2024 Assessment & Plan (1) Bilateral edema of lower extremity: Plan: Volume overload appears multifactorial in etiology - DVT, high-dose steroids, chemotherapy, anemia, hypoalbuminemia, systolic and diastolic heart failure all likely contributing factors. Agree with current dose of furosemide 40 mg IV twice daily. Jackson catheter is currently in place. Continue current dose of spironolactone 12.5 mg by mouth on Wednesdays and Fridays. The patient's outpatient furosemide dose was increased from 20 mg to 40 mg at the previous admission a week ago, likely requires higher dose of furosemide or transition to torsemide 20 mg twice daily or more. (2) Acute hyponatremia: Plan: -Monitor hyponatremia with diuretic therapy. Plan Patient admitted with worsening volume overload/LE edema. Likely multifactorial with history of DVT, high dose steroids, intermittent chemotherapy, anemia, hypoalbuminemia, and chronic HFrEF. Recent admission several weeks ago requiring IV diuresis. Upon discharge, oral furosemide and spironolactone were titrated. Unfortunately fluid retention worsened over the next few days after discharge. Since admission, patient treated with IV furosemide 40 mg BID. Good urine outputs noted over the last 24 hours - 4800 ml Down 6 kgs per scale Patient has been hypotensive overnight and this morning. No symptoms. BP in the 80-90's. Diuretics held by nursing this morning. Held furosemide and spironolactone. IF BP improves later this morning or lunch time, consider additional dose at this time. Monitor. Plans to transition to torsemide 20 mg BID on discharge along with spironolactone 12.5 M/W/ Hyponatremia - monitor Sodium 133 this morning, improved from 132 on admission If sodium falls lower, we may need to stop spironolactone Hypomag at 1.6 yesterday -repeat magnesium level today and supplement if needed. Case discussed with Dr. Ott I spent a total of 35 minutes on the date of service in preparation, delivery, and documentation of the care provided to this patient, excluding any time spent in the performance of separately billed services. Carolin Antony PA-C Department of Cardiology, [facility] This chart was completed in part utilizing Speech Voice Recognition Software. Grammatical errors, random word insertions, pronoun errors, and incomplete sentences are an occasional consequence of this system due to software limitations, ambient noise, and hardware issues. Any formal questions or concerns about the content, text, or information contained within the body of this dictation should be directly addressed to the provider for clarification. Admission and Anticipated Discharge Date Admission Date: November 05, 2024 Supervising Physician Co-Signing Physician Notes I have personally performed a history and physical examination on the patient. I have reviewed the advance practitioner's documentation, and I agree with, and take responsibility for the plan of care. 74-year-old male seen and examined at the bedside. Volume status improved with 3.5 L diuresis overnight. Borderline hypotensive currently. Denies lightheadedness or dizziness. Multifactorial volume overload noted. Recommend hold additional diuretic therapy today. Reassess volume status, GFR, electrolytes in AM. Consider additional diuresis tomorrow. I spent a total of 30 minutes on the date of service in preparation, delivery, and documentation of the care provided to this patient, excluding any time spent in the performance of separately billed services. Joaquin Ott DO, [facility] Subjective Patient resting in bed comfortably. Reports significant improvement in his edema since yesterday. Good diuresis over the last 24 hours. He has been mildly hyp otensive last night and this morning. Diuretics held this morning due to hypotension. Patient denies chest pain or SOB at rest. Review of Systems Review of Systems: All systems reviewed & are unremarkable except as noted in HPI & below Physical Exam Physical Exam: General: Frail, chronically ill in appearance, no acute distress Eyes: conjunctiva are pink and non-injected, sclera clear Neck: normal jugular venous pulse, no hepatojugular reflux Chest: normal shape and normal respiratory effort -Left infraclavicular device pocket loco n dry and intact, no erythema Lungs: Decreased breath sounds, otherwise clear Cardiac Exam: regular heart sounds, no murmurs, rubs, or gallops, no jugular venous distention Abdomen: abdomen soft, non-tender, no abnormal masses and no hepatosplenomegaly Musculoskeletal: no gait disturbance, no weakness Extremities: 1+ bilateral lower extremity edema Neuro: awake, conversant, follows commands, no focal motor deficits Results & Data Vital Signs (Past 12 Hours) Vital Signs Temp Pulse Pulse Resp BP Pulse Ox O2 Del Method 11/06/24 08:00 95/54 L 11/06/24 07:05 36.3 C L 70 18 98/66 L 96 Nasal Cannula 11/06/24 02:54 36.4 C L 65 18 101/62 96 Nasal Cannula 11/05/24 23:52 78 94/62 L 11/05/24 22:50 62 11/05/24 22:44 36.4 C L 61 16 87/57 L 96 Nasal Cannula O2 Flow Rate 11/06/24 08:00 11/06/24 07:05 2 11/06/24 02:54 2.0 11/05/24 23:52 11/05/24 22:50 11/05/24 22:44 2.0 Laboratory Results CBC 11/06/24 Range/Units 05:22 WBC 9.43 (4.8-10.8) K/ul RBC 2.75 L (4.70-6.10) M/uL Hgb 9.5 L (14.0-18.0) g/dl Hct 28.8 L (42.0-52.0) % Plt Count 117 L (130-400) K/uL Neut # (Auto) 8.72 H (1.40-6.50) K/uL Lymph # (Auto) 0.17 L (1.20-3.40) K/uL Mingo # (Auto) 0.43 (0.11-0.59) K/uL Eos # (Auto) 0.00 (0.00-0.50) K/uL Baso # (Auto) 0.00 (0.00-0.20) K/uL Comprehensive Metabolic Panel 11/06/24 Range/Units 05:22 Sodium 133 L (136-145) mmol/L Potassium 4.1 (3.5-5.1) mmol/L Chloride 93 L (98-107) mmol/L Carbon Dioxide 36 H (21-32) mmol/L BUN 23 (6-23) mg/dl Creatinine 0.63 (0.6-1.4) mg/dl Glucose 146 H (70-99(Fasting)) mg/dl Calcium 8.7 (8.6-10.3) mg/dl Intake and Output 11/05/24 11/06/24 11/06/24 22:59 06:59 14:59 Intake Total 50 / 1440 370 / 1440 Output Total 300 / 3100 250 / 3100 Balance -250 / -1660 120 / -1660 Intake: IV 50 / 100 Albumin 25% 12.5 gm In 50 ml @ 50 / 50 50 mls/hr IV ONE ONE Rx#: [id number] Oral 50 / 1340 320 / 1340 Output: Urine Amount (Catheter) 300 / 3100 250 / 3100 Jackson/Indwelling 300 / 3100 250 / 3100 Other: Weight 70.2 kg Weight Measurement Method Built in [facility] Diagnostic Findings Telemetry reviewed: NSR with intermittent atrial pacing, ventricular sensing. Medications Administered Current Inpatient Medications Acetaminophen (Acetaminophen 325 Mg Tab) 650 mg PO Q4H PRN PRN Reason: Pain or Fever Stop: 12/05/24 04:10 Apixaban (Apixaban 5 Mg Tablet) 5 mg PO BID YUNIOR Stop: 12/05/24 08:59 Last Admin: 11/06/24 08:59 Dose: 5 mg Atorvastatin Calcium (Atorvastatin 40 Mg Tab) 40 mg PO QAM YUNIOR Stop: 12/05/24 08:59 Last Admin: 11/06/24 08:59 Dose: 40 mg Calcium/Vitamin D (Calcium 600mg + Vit D 400 Iu Tab) 1 tab PO DAILY YUNIOR Stop: 12/05/24 08:59 Last Admin: 11/06/24 09:00 Dose: 1 tab Dexamethasone (Dexamethasone 4 Mg Tab) 4 mg PO QAM YUNIOR Stop: 12/05/24 08:59 Last Admin: 11/06/24 08:59 Dose: 4 mg Ferrous Sulfate (Ferrous Sulfate 325 Mg Tab) 325 mg PO DAILY YUNIOR Stop: 12/05/24 08:59 Last Admin: 11/06/24 09:00 Dose: 325 mg Fluticasone Furoate (Fluticasone Furoate 100mcg 14 Puffs/Inhaler) 1 puffs INH DAILY YUNIOR Stop: 12/05/24 08:59 Last Admin: 11/06/24 09:02 Dose: 1 puffs Furosemide (Furosemide 40 Mg/4 Ml Vial) 40 mg IV BID YUNIOR Stop: 12/05/24 08:59 Last Admin: 11/06/24 09:06 Dose: Not Given Gabapentin (Gabapentin 100 Mg Cap) 200 mg PO TID@0700,1200,2100 [facility]IOR Stop: 12/06/24 06:59 Last Admin: 11/06/24 08:58 Dose: 200 mg Ceftriaxone Sodium (Rocephin) 2,000 mg in 50 mls @ 100 mls/hr IV Q24H YUNIOR Stop: 11/12/24 08:59 Last Admin: 11/06/24 10:13 Dose: 100 mls/hr Loratadine (Loratadine 10 Mg Tab) 10 mg PO DAILY PRN PRN Reason: Congestion Stop: 12/05/24 04:10 Last Admin: 11/06/24 08:59 Dose: 10 mg Metoprolol Succinate (Metoprolol Succ 25mg Ext Rel Tab) 25 mg PO QAM [facility] Stop: 12/05/24 08:59 Last Admin: 11/06/24 09:06 Dose: Not Given Multivitamins (Multivitamin Tab) 1 tab PO QAM [facility] Stop: 12/05/24 08:59 Last Admin: 11/06/24 08:59 Dose: 1 tab Nitroglycerin (Nitroglycerin Sl 0.4 Mg/Tab Tab) 0.4 mg SL Q5M PRN PRN Reason: Chest Pain Stop: 12/05/24 04:10 Polyethylene Glycol (Polyethylene (Miralax) 17 Gm Pack) 17 gm PO DAILY PRN PRN Reason: Constipation Stop: 12/05/24 04:10 Spironolactone (Spironolactone 12.5 Mg Tab) 12.5 mg PO MoWeFr@0900 [facility] Stop: 12/06/24 08:59 Last Admin: 11/06/24 09:07 Dose: Not Given Trazodone HCl (Trazodone Hcl 100 Mg Tab) 100 mg PO HS [facility] Stop: 12/06/24 20:59 Umeclidinium/Vilanterol (Umeclidinium/Vilanterol 62.5/25mcg 7 Puffs/Inhaler) 1 puffs INH DAILY [facility] Stop: 12/05/24 08:59 Last Admin: 11/06/24 09:01 Dose: 1 puffs PG Care Time/CCT Total # of Minutes Spent Total Time Spent with Patient: Total time spent is greater than 50% in coordination of care (as documented) at patient's floor/unit and/or counseling patient: 35 Coding Level of Care Code 35191 SUB INP/OBS CARE 3/50MIN Diagnoses Bilateral edema of lower extremity R60.0 Acute hyponatremia E87.1
[2024-11-06 11:45] LABS: Magnesium 1.9 mg/dl (1.7-2.4)
[2024-11-06] MEDS: ALBUMIN 25% 12.5 GM/50 ML VIAL IV ONE (20:03)
[2024-11-06] MEDS: ZOLPIDEM TARTRATE 5 MG TAB PO ONE (20:04)
[2024-11-06] MEDS: dexAMETHasone 4 MG in SYRINGE 0 ML IV ONE (20:13)
[2024-11-07] MEDS: ACETAMINOPHEN 325 MG TAB PO PRN (02:28)
[2024-11-07] MEDS: MELATONIN 3 MG TAB PO PRN (02:29)
--- NOTE | 2024-11-07 05:54 | CT Scan Report ---
EXAM: CT tib/fib RT wo con CLINICAL HISTORY: pain, noac TECHNIQUE: Contiguous axial CT images of right tibia and fibula were obtained without intravenous contrast. Coronal and sagittal reconstructions were likewise performed and indicated to increase the sensitivity for detecting clinically relevant pathology. CT scan was performed according to ALARA (as low as reasonable achievable). COMPARISON: None. FINDINGS: Visualized bones show diffuse osteopenia. Mild right knee joint arthritis. Mild right knee joint effusion is seen. Diffuse subcutaneous edema is noted involving visualized right lower extremity. No acute fracture or dislocation. No destructive osseous lesion. The visualized muscles and tendons appear grossly unremarkable. No cortical destruction to suggest osteomyelitis. No abscess formation. No significant joint effusion. There are no soft tissue masses. IMPRESSION: Visualized bones show diffuse osteopenia. Mild right knee joint arthritis. Mild right knee joint effusion is seen. Diffuse subcutaneous edema is noted involving visualized right lower extremity. Electronically signed by Hank Grider 11-07-2024 05:54 AM
[2024-11-07] MEDS: TORSEMIDE 20 MG TAB PO SCH (08:35)
--- NOTE | 2024-11-07 09:09 | Hospitalist Progress Note ---
Date of Service November 07, 2024 Assessment & Plan (1) Heart failure, systolic, with acute decompensation: Plan: 74-year-old male with past medical history significant for dyslipidemia, COPD, pulmonary fibrosis, sleep apnea, paroxysmal atrial fibrillation, hypertension, left bundle branch block, history of CAD, history of complete heart block status post permanent pacemaker, 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 Patient had a similar presentation on 10/23/2024. During that admission echo showed EF of 45 to 50% and grade 1 diastolic dysfunction, he was treated with IV diuresis and discharged on his home Lasix 40 mg daily and also added spironolactone 12.5 mg on Wednesday and Fridays. Patient had reaccumulation of lower extremity edema after discharge from the hospital. Bilateral lower extremity edema Possible acute on chronic systolic CHF Possible side effect of steroids Patient had reaccumulation of lower extremity edema after discharge from the hospital. Echo done on 10/23/2024 shows EF of 45 to 50%. Grade 1 diastolic dysfunction Patient diuresed with IV Lasix with improvement in lower extremity edema. Discussed the underlying cause for retention to be use of steroid. Patient has history of metastatic lung cancer with no significant improvement on treatment; he is on Decadron 4 mg. I discussed regarding decreasing the dose with his oncologist Dr. Trinidad over [place] text; recommended to decrease Decadron gradually; Decadron changed to 2mg once a day. Will change him to p.o. torsemide given borderline blood pressure Goals of care also discussed at bedside on 11/05/2024; patient acknowledges that he has metastatic lung cancer is not curable; he has been hospitalized multiple times in recent month. He reports that he does not want to go to [facility]; wants to remain in his house for remaining of his life. He is open to hospice care at home so that he will have hospital bed, assistive device at home. I offered to talk with his daughter as well; he declined at this time. Palliative care has been consulted for comanagement to assist with goals of care discussion and possible hospice transition at home. Code status changed as per discussion to dnr/dni Acute urinary retention status post Jackson placement Patient was found to have urinary retention for which Jackson was placed in the ED Urine analysis does not show signs of infection Plan to do trial of void prior to discharge Possible cellulitis of left lower extremity Small on the left perez with mild erythema surrounding Will continue with Rocephin and monitor for response; tx for 7 days Leukocytosis Chronically elevated History of paroxysmal atrial fibrillation On metoprolol succinate and Eliquis-continue Hyperlipidemia On statin-continue COPD Pulmonary fibrosis Continue home inhalers Chronic right popliteal thrombus On Eliquis Complete heart block status post PPM Chronic bundle-branch block Hypertension On metoprolol succinate and diuretics Chronic anemia Hemoglobin 9 to 10; stable Metastatic non-small cell lung cancer So far received 3 lines of chemo treatment for lung cancer PET scan on 10/04/2024 showed mildly increased size and metabolic activity of the left lower lobe nodule without any evidence of new disease and persistent hypermetabolic activity of the bilateral adrenal glands which have enlarged Currently not on any chemo. Per heme/onco :Plan to follow CBC and CMP.And plan to repeat PET scan in 3 months Following with heme-onc Palliative care consulted for comanagement for goals of care discussion given patient's recurrent frequent hospitalization and metastatic lung cancer. DVT prophylaxis On Eliquis Disposition Telemetry CODE STATUS full code Time spent evaluating patient, direct bedside care, chart review, placing orders, interpretation of diagnostic studies, discussion with consultants, patient, and family members, as well as other required patient management activities is 50 minutes Please note the above document was generated using voice recognition software. It may contain grammatical, syntax or spelling errors. Any formal questions or concerns about the content, text or information contained within the body of this dictation should be directly addressed to the provider for clarification Admission and Anticipated Discharge Date Admission Date: November 05, 2024 Subjective Patient seen and examined at bedside. He is comfortable; not in any distress. Jackson is draining clear urine. Denies any chest pain or shortness of breath. Review of Systems Review of Systems: All systems reviewed & are unremarkable except as noted in Subjective Physical Exam Physical Exam: General-Not in distress. Head- atraumatic Eyes- PERRL ENT- oropharynx clear Neck- supple, no JVD. Lungs- clear to auscultation no wheezing or crackles Heart- regular rhythm; no murmur, no gallop. Abdomen- normal bowel sounds, soft, nontender, no distension Extremities- b/l 1 +lower extremity edema present,, small open wound seen on left perez with mild surrounding erythema . Neuro- alert, oriented x 3; PERRL, no facial palsy; no dysarthria; moves extremities Results & Data Results & Data Vital Signs (Past 12 Hours) Vital Signs Temp Pulse Pulse Resp BP Pulse Ox O2 Del Method 11/07/24 08:02 36.4 C L 60 21 93/56 L 92 Room Air 11/07/24 03:55 36.5 C 60 18 91/50 L 95 Room Air 11/06/24 23:50 Room Air 11/06/24 23:42 36.3 C L 60 18 102/64 97 Room Air 11/06/24 21:44 63 11/06/24 21:21 20 95/59 L 96 Room Air
[2024-11-07] MEDS: METOPROLOL SUCC 25MG EXT REL TAB PO SCH (09:53)
[2024-11-07 09:55] LABS: Alanine Aminotransferase 42.0 U/L (7-52); Albumin Globulin Ratio 1.1 (0.9-2); Alkaline Phosphatase 66.0 U/L (34-104); Anion Gap 5.0 (3-11); Bilirubin,Total 0.3 mg/dl (0.2-1.0); Blood Urea Nitrogen 31.0 mg/dl (6-23); Calcium 8.7 mg/dl (8.6-10.3); Carbon Dioxide 33.0 mmol/L (21-32); Chloride 94.0 mmol/L (98-107); Creatinine Clr Calc Pharmacy 87.4 ml/min; Globulin 2.5 gm/dl (2.5-4.0); Glucose 173.0 mg/dl (70-99(Fasting)); Magnesium 1.8 mg/dl (1.7-2.4); Potassium 4.6 mmol/L (3.5-5.1); Sodium 132.0 mmol/L (136-145); Total Protein 5.2 gm/dl (6.0-8.3)
--- NOTE | 2024-11-07 10:03 | Palliative Family Discussion ---
Date of Service November 07, 2024 Patient Directed Conference Time of Meetin:00 - 12:30 and 13:30 - 14:00 Participants: Monique Bloom AGACNP Patient participation: yes Patient Support System: daughter Carolin Other Healthcare Provider Participation: MAUREEN Sorensen Meeting Location: room 229 Advanced Directive available: no If yes, descriptors: The patient's surrogate medical decision maker participated: daughter Carolin and pt brother Jose Luis Legally authorized health care proxy: Per PA [id number], in absence of written documentation of patient wishes, pt's proxy for medical decisions would be his adult children, however Scott verbalized that he trusts his brother Jose Luis Molnia to serve as primary proxy for medical decisions in the event he lacks decisional capacity. Pt [] require a proxy for medical decisions. Other surrogate: n/a A family meeting was held for [employer] MOLINA. This meeting was necessary for determining the appropriate course of treatment. Topics of Discussion Topics of Discussion: 1. goals of care 2. expected disease trajectory 3. comfort directed care 4. Hospice Other Content of Meetin. Opportunity given for participants to speak and ask questions. 2. Participants were assured of attention to patient comfort. 3. Reassurance provided. 4. Support was provided for informed, good-oliver decisions. 5. Emotions expressed by family were acknowledged and addressed. 6. Follow-up Outpatient: n/a 7. Plan of Care: discharge to IPR when medically cleared, then home with hospice Met with pt and his daughter at bedside. Pt shared that he is ready to transition to comfort care and would like to be discharged when medically cleared to home with hospice care. 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 He shared that he had discussed plan or his coworkers to be his care takers with the hospice team and they agreed that would be ok. At this time the patient shared that he was confu sed and it was actually me that had discussed plans for hospice care after discharge and no one visited him in the evening. During this meeting, he shared that his brother Jose Luis is working with the hospice team to make arrangements. 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 He shared that he had been living at the shop for several months prior to this admission and he "will be fine". I shared concern for the patient's safety and concern that hospice may not accept him as a patient if he is living in a retail establishment. Discussed concern for his safety as his disease progresses and tried to help pt understand that he is likely currently at the highest level of strength and function that he will ever be. Scott shared that his brother Jose Luis is arranging for PT and home visiting nurses to come to the shop and help him get stronger. I shared concern that the patient is likely to continue to get weaker as his disease progresses, and discussed the PT team recommendation of IPR for short time prior to discharge. Patient stated that he does wish to receive PT to optimize his strength and independence, but that his goal is to pursue comfort and not prolong life. Discussed hospice benefit: an interdisciplinary program offered by nurses, nurses aides, social workers, chaplains and a medical billing specialist for patients with a terminal condition and a life expectancy of less than 6 months. This is covered by Medicare at 100%/no out of pocket expense to patient and all meds/supplies needed by patient for the reason they are on hospice are paid for/covered by hospice. The goal is assure quality of life of the patient in their home setting (home, longterm, inpatient hospice setting) by providing symptoms management, psychosocial and spiritual support. However, they cannot offer 24 hours care and if the family is unable to provide that care, they will have to consider personal care with out of pocket cost vs. longterm placement. We discussed the goals of hospice as a patient service and the goals of care; we discussed EOL trajectories and transitions martita the emotional impact of realizing mortality as a concrete reality from prior abstract considerations. Pt was reassured that no matter where they are along this trajectory, they are not alone - their medical team will remain by their side through their journey. Discussed the pros/cons of accepting help when especially weakened and distressed by pain-which would also help provide relief/decrease caregiver burden/strain. Pt's daughter tried to encourage pt to move into her home, where she could provide him 24hr care if needed. Pt refused to entertain this as an option, repeating that his brother and friend Emmanuel are making all the arrangements for living space at the [employer]. Case management present for the entirety of this meeting and has provided family with a list of hospice agencies to choose from. Later in day I received a call back from pt's brother who was in pt's room. I went to the room and discussed all the above with the pt and his brother. Jose Luis shared that he is arranging to have full bathroom installed and making an apartment with a separate entrance from the [employer] business. He requested contact information for hospice agency so that he could be sure the living arrangements meet the needs of hospice. He shared that the pt is "very stubborn and has lived a very private and independent life, so he will want to that way too". Jose Luis verbalized commitment to doing whatever necessary to allow pt to live independently for as long as possible. He shared concern that the pt's daughter Jordyn "has struggled with addiction and does not have a stable home environment so scott will not move in with her". Discussed with scott and Jose Luis possible discharge to IPR to optimize his strength and also allow Jose Luis the time needed to make proper arrangements for Scott to have a safe place to spend what time he has left. Jose Luis shared that he is hopeful to have shower and bathroom completed within a week or so, and then will just need furniture. We discussed utilizing hospice services to supply hospital bed and any other DME required for patient. Scott and Jose Luis both agreeable with this plan. CM made aware and will supply Jose Luis with list of hospice agencies as well as potential sites for IPR. Palliative Care will continue to follow. Time Involved in Meeting: I spent 90 minutes overall addressing this case: 10 in medical data review/discussion with referring provider(s) and/or preparation for the visit 60 in direct interaction with the patient and family 60 Advance Care Planning/Goals of Care discussions as detailed above in note (must be >16min) 10 in subsequent review and synthesis of assessment and plan 10 in communicating with other providers regarding the patient's case:
[2024-11-07 10:11] LABS: Thyroid Stimulating Hormone 0.346 uIu/ml (0.300-4.500)
--- NOTE | 2024-11-07 10:43 | Cardiology Progress Note ---
Date of Service November 07, 2024 Assessment & Plan (1) Bilateral edema of lower extremity: (2) Acute hyponatremia: (3) Paroxysmal atrial fibrillation: Plan 11/06/24 Patient admitted with worsening volume overload/LE edema. Likely multifactorial with history of DVT, high dose steroids, intermittent chemotherapy, anemia, hypoalbuminemia, and chronic HFrEF. Recent admission several weeks ago requiring IV diuresis. Upon discharge, oral furosemide and spironolactone were titrated. Unfortunately fluid retention worsened over the next few days after discharge. Since admission, patient treated with IV furosemide 40 mg BID. Good urine outputs noted over the last 24 hours - 4800 ml Down 6 kgs per scale Patient has been hypotensive overnight and this morning. No symptoms. BP in the 80-90's. Diuretics held by nursing this morning. Held furosemide and spironolactone. IF BP improves later this morning or lunch time, consider additional dose at this time. Monitor. Plans to transition to torsemide 20 mg BID on discharge along with spironolactone 12.5 M/W/F Hyponatremia - monitor Sodium 133 this morning, improved from 132 on admission If sodium falls lower, we may need to stop spironolactone Hypomag at 1.6 yesterday -repeat magnesium level today and supplement if needed. 11/07/24 Patient developed recurrent atrial fibrillation with controlled rates yesterday. He had not received his metoprolol succinate 25 mg on 11/05, 11/06 and so far not given on 11/07 due to hypotension and holding parameters. Per review of outpatient chart, patient has a history of PAF on his device interrogations. He is appropriately anticoagulated with Eliquis 5 mg BID. Continue anticoag ulation Metoprolol is listed as 12.5 mg daily as an outpatient. Will reduce metoprolol to 12.5 mg (home dose) given hypotension and change holding parameters to SBP < 90. First dose now. Replace magnesium with 2 grams. Torsemide 20 mg initiated this morning Continue spironolactone 12.5 mg M/W/ Stable renal function and sodium. Volume status has improved from admission. Family meeting arranged for this afternoon to discuss goals of care, possible hospice. Case discussed with Dr. Ott I spent a total of 35 minutes on the date of service in preparation, delivery, and documentation of the care provided to this patient, excluding any time spent in the performance of separately billed services. Carolin Antony PA-C Department of Cardiology, [facility] This chart was completed in part utilizing Speech Voice Recognition Software. Grammatical errors, random word insertions, pronoun errors, and incomplete sentences are an occasional consequence of this system due to software limi tations, ambient noise, and hardware issues. Any formal questions or concerns about the content, text, or information contained within the body of this dictation should be directly addressed to the provider for clarification. Admission and Anticipated Discharge Date Admission Date: November 05, 2024 Supervising Physician Co-Signing Physician Notes I have personally performed a history and physical examination on the patient. I have reviewed the advance practitioner's documentation, and I agree with, and take responsibility for the plan of care. 74-year-old male seen and examined at the bedside. Remains borderline hypotensive. Denies lightheadedness or dizziness. Multifactorial volume overload improved since admission with IV diuresis. Continue torsemide and spironolactone. Hold parameters adjusted. Cardiology will sign off. Please call with additional concerns/questions. I spent a total of 30 minutes on the date of service in preparation, delivery, and documentation of the care provided to this patient, excluding any time spent in the performance of separately billed services. Joaquin Ott DO, [facility] Subjective Patient resting in bed. Primary complaint is "shooting" pains that start in his feet and go up his leg. Worse on the right. Left leg/foot is numb. No chest pain or SOB. Edema improving. His brother and daughter are coming to the hospital later today and having a family meeting about goals of care. Review of Systems Review of Systems: All systems reviewed & are unremarkable except as noted in HPI & below Physical Exam Physical Exam: General: Frail, chronically ill in appearance, no acute distress Eyes: conjunctiva are pink and non-injected, sclera clear Neck: normal jugular venous pulse, no hepatojugular reflux Chest: normal shape and normal respiratory effort -Left infraclavicular device pocket loco n dry and intact, no erythema Lungs: Decreased breath sounds, otherwise clear Cardiac Exam: regular heart sounds, no murmurs, rubs, or gallops, no jugular venous distention Abdomen: abdomen soft, non-tender, no abnormal masses and no hepatosplenomegaly Musculoskeletal: no gait disturbance, no weakness Extremities: 1+ bilateral lower extremity edema Neuro: awake, conversant, follows commands, no focal motor deficits Results & Data Vital Signs (Past 12 Hours) Vital Signs Temp Pulse Resp BP Pulse Ox O2 Del Method 11/07/24 09:00 Room Air 11/07/24 08:02 36.4 C L 60 21 93/56 L 92 Room Air 11/07/24 03:55 36.5 C 60 18 91/50 L 95 Room Air 11/06/24 23:50 Room Air 11/06/24 23:42 36.3 C L 60 18 102/64 97 Room Air Laboratory Results Cardiac Enzymes 11/07/24 Range/Units 09:12 AST 30 (13-39) U/L Comprehensive Metabolic Panel 11/07/24 Range/Units 09:12 Sodium 132 L (136-145) mmol/L Potassium 4.6 (3.5-5.1) mmol/L Chloride 94 L (98-107) mmol/L Carbon Dioxide 33 H (21-32) mmol/L BUN 31 H (6-23) mg/dl Creatinine 0.79 (0.6-1.4) mg/dl Glucose 173 H (70-99(Fasting)) mg/dl Calcium 8.7 (8.6-10.3) mg/dl AST 30 (13-39) U/L ALT 42 (7-52) U/L Alkaline Phosphatase 66 (34-104) U/L Total Protein 5.2 L (6.0-8.3) gm/dl Albumin 2.7 L (3.4-5.0) gm/dl Intake and Output 11/06/24 11/07/24 11/07/24 22:59 06:59 14:59 Intake Total 50 / 1030 300 / 1030 50 / 50 Output Total 500 / 800 Balance 50 / 230 -200 / 230 50 / 50 Intake: IV 50 / 100 50 / 50 Albumin 25% 12.5 gm In 50 ml @ 50 / 50 50 mls/hr IV ONE ONE Rx#: [id number] cefTRIAXone SODIUM 2,000 mg In 50 / 50 50 ml @ 100 mls/hr IV Q24H [facility] Rx#:[id number] Oral 300 / 930 Output: Urine Amount (Catheter) 500 / 800 Jackson/Indwelling 500 / 800 Other: Weight 70.2 kg 82.9 kg Weight Measurement Method Built in [facility] Diagnostic Findings Telemetry reviewed: Afib with controlled rates. Around 10:00 AM on 11/06, patient developed afib with controlled rates. There were several episodes of ATP pacing in attempt to restore normal sinus/atrial paced rhythm but this was not successful. Medications Administered Current Inpatient Medications Acetaminophen (Acetaminophen 325 Mg Tab) 650 mg PO Q4H PRN PRN Reason: Pain or Fever Stop: 12/05/24 04:10 Last Admin: 11/07/24 02:28 Dose: 650 mg Apixaban (Apixaban 5 Mg Tablet) 5 mg PO BID [facility] Stop: 12/05/24 08:59 Last Admin: 11/07/24 08:30 Dose: 5 mg Atorvastatin Calcium (Atorvastatin 40 Mg Tab) 40 mg PO QAM [facility] Stop: 12/05/24 08:59 Last Admin: 11/07/24 08:33 Dose: 40 mg Calcium/Vitamin D (Calcium 600mg + Vit D 400 Iu Tab) 1 tab PO DAILY [facility] Stop: 12/05/24 08:59 Last Admin: 11/07/24 08:30 Dose: 1 tab Dexamethasone (Dexamethasone 1 Mg Tab) 2 mg PO QAM [facility] Stop: 12/07/24 08:59 Last Admin: 11/07/24 08:36 Dose: 2 mg Ferrous Sulfate (Ferrous Sulfate 325 Mg Tab) 325 mg PO DAILY [facility] Stop: 12/05/24 08:59 Last Admin: 11/07/24 08:30 Dose: 325 mg Fluticasone Furoate (Fluticasone Furoate 100mcg 14 Puffs/Inhaler) 1 puffs INH DAILY [facility] Stop: 12/05/24 08:59 Last Admin: 11/07/24 08:25 Dose: 1 puffs Gabapentin (Gabapentin 100 Mg Cap) 200 mg PO TID@0700,1200,2100 [facility] Stop: 12/06/24 06:59 Last Admin: 11/07/24 05:31 Dose: 200 mg Ceftriaxone Sodium (Rocephin) 2,000 mg in 50 mls @ 100 mls/hr IV Q24H [facility] Stop: 11/12/24 08:59 Last Infusion: 11/07/24 09:11 Dose: Infused Loratadine (Loratadine 10 Mg Tab) 10 mg PO DAILY PRN PRN Reason: Congestion Stop: 12/05/24 04:10 Last Admin: 11/06/24 08:59 Dose: 10 mg Melatonin (Melatonin 3 Mg Tab) 3 mg PO HS PRN PRN Reason: Sleep Stop: 12/07/24 02:03 Last Admin: 11/07/24 02:29 Dose: 3 mg Metoprolol Succinate (Metoprolol Succ 25mg Ext Rel Tab) 12.5 mg PO QAM [facility] Stop: 12/07/24 09:29 Last Admin: 11/07/24 09:53 Dose: 12.5 mg Multivitamins (Multivitamin Tab) 1 tab PO QAM [facility] Stop: 12/05/24 08:59 Last Admin: 11/07/24 08:33 Dose: 1 tab Nitroglycerin (Nitroglycerin Sl 0.4 Mg/Tab Tab) 0.4 mg SL Q5M PRN PRN Reason: Chest Pain Stop: 12/05/24 04:10 Polyethylene Glycol (Polyethylene (Miralax) 17 Gm Pack) 17 gm PO DAILY PRN PRN Reason: Constipation Stop: 12/05/24 04:10 Spironolactone (Spironolactone 12.5 Mg Tab) 12.5 mg PO MoWeFr@0900 [facility] Stop: 12/06/24 08:59 Last Admin: 11/06/24 09:07 Dose: Not Given Torsemide (Torsemide 20 Mg Tab) [facility] [place]: 12/07/24 08:59 Last Admin: 11/07/24 08:35 Dose: 20 mg Trazodone HCl (Trazodone Hcl 100 Mg Tab) 100 mg PO HS [facility] Stop: 12/06/24 20:59 Last Admin: 11/06/24 21:21 Dose: Not Given Umeclidinium/Vilanterol (Umeclidinium/Vilanterol 62.5/25mcg 7 Puffs/Inhaler) 1 puffs INH DAILY [facility] Stop: 12/05/24 08:59 Last Admin: 11/07/24 08:25 Dose: 1 puffs PG Care Time/CCT Total # of Minutes Spent Total Time Spent with Patient: Total time spent is greater than 50% in coordination of care (as documented) at patient's floor/unit and/or counseling patient: 35 Coding Level of Care Code 69793 SUB INP/OBS CARE 3/50MIN Diagnoses Bilateral edema of lower extremity R60.0 Acute hyponatremia E87.1 Paroxysmal atrial fibrillation I48.0
[2024-11-07] MEDS: MAGNESIUM SULFATE / D5W 1 GM/100 ML BAG IV SCH (12:03)
--- NOTE | 2024-11-08 15:58 | Hospitalist Progress Note ---
Date of Service November 08, 2024 Assessment & Plan (1) Heart failure, systolic, with acute decompensation: Plan: 74-year-old male with past medical history significant for dyslipidemia, COPD, pulmonary fibrosis, sleep apnea, paroxysmal atrial fibrillation, hypertension, left bundle branch block, history of CAD, history of complete heart block status post permanent pacemaker, 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 Patient had a similar presentation on 10/23/2024. During that admission echo showed EF of 45 to 50% and grade 1 diastolic dysfunction, he was treated with IV diuresis and discharged on his home Lasix 40 mg daily and also added spironolactone 12.5 mg on Wednesday and Fridays. Patient had reaccumulation of lower extremity edema after discharge from the hospital. Bilateral lower extremity edema Possible acute on chronic systolic CHF Possible side effect of steroids Patient had reaccumulation of lower extremity edema after discharge from the hospital. Echo done on 10/23/2024 shows EF of 45 to 50%. Grade 1 diastolic dysfunction Patient diuresed with IV Lasix with improvement in lower extremity edema. Steroid use could be contributory to underlying cause for retention. Patient has history of metastatic lung cancer with no significant improvement on treatment; he is on Decadron 4 mg. Prior attending discussed regarding decreasing the dose with his oncologist Dr. Trinidad over [place] text; recommended to decrease Decadron gradually; Decadron changed to 2mg once a day. Was changed to p.o. torsemide given borderline blood pressure Per prior attending: Goals of care also discussed at bedside on 11/05/2024; patient acknowledges that he has metastatic lung cancer is not curable; he has been hospitalized multiple times in recent month. He reports that he does not want to go to long-term; wants to remain in his house for remaining of his life. He is open to hospice care at home so that he will have hospital bed, assistive device at home. I offered to talk with his daughter as well; he declined at this time. Palliative care has been consulted for comanagement to assist with goals of care discussion and possible hospice transition at home. Code status changed as per discussion to dnr/dni Pt would like to go rehab first and possible to home /w hospice from there. Pt to f/u w/ palliative on dischage. Acute urinary retention status post Jackson placement Patient was found to have urinary retention for which Jackson was placed in the ED Urine analysis does not show signs of infection Plan to do trial of void prior to discharge Possible cellulitis of left lower extremity Small on the left perez with mild erythema surrounding Will continue with Rocephin and monitor for response; tx for 7 days Leukocytosis: Chronically elevated History of paroxysmal atrial fibrillation: On metoprolol succinate and Eliquis- continue Hyperlipidemia: On statin-continue COPD, Pulmonary fibrosis: Continue home inhalers Chronic right popliteal thrombus: On Eliquis Complete heart block status post PPM Chronic bundle-branch block Hypertension: On metoprolol succinate and diuretics Chronic anemia: Hemoglobin 9 to 10; stable Metastatic non-small cell lung cancer So far received 3 lines of chemo treatment for lung cancer PET scan on 10/04/2024 showed mildly increased size and metabolic activity of the left lower lobe nodule without any evidence of new disease and persistent hypermetabolic activity of the bilateral adrenal glands which have enlarged Currently not on any chemo. Per heme/onco :Plan to follow CBC and CMP.And plan to repeat PET scan in 3 months Following with heme-onc Palliative care consulted for comanagement for goals of care discussion given patient's recurrent frequent hospitalization and metastatic lung cancer. DVT prophylaxis: On Eliquis Disposition: Telemetry CODE STATUS dnr/dni Admission and Anticipated Discharge Date Admission Date: November 05, 2024 Subjective Patient seen and examined at bedside. He is comfortable; not in any distress. Denies any chest pain or shortness of breath. Physical Exam Physical Exam: General-Not in distress. Head- atraumatic Eyes- PERRL ENT- oropharynx clear Neck- supple, no JVD. Lungs- clear to auscultation no wheezing or crackles Heart- regular rhythm; no murmur, no gallop. Abdomen- normal bowel sounds, soft, nontender, no distension Extremities- b/l 1 +lower extremity edema present,, small open wound seen on left perez with mild surrounding erythema . Neuro- alert, oriented x 3; PERRL, no facial palsy; no dysarthria; moves extremities Results & Data Results & Data Vital Signs (Past 12 Hours) Vital Signs Temp Pulse Resp BP Pulse Ox O2 Del Method 11/08/24 15:37 Room Air 11/08/24 15:26 36.8 C 49 L 18 93/49 L 92 Room Air 11/08/24 10:23 36.3 C L 66 19 91/50 L 92 Room Air 11/08/24 07:56 36.5 C 70 19 91/60 L 91 Room Air
[2024-11-09 06:36] LABS: Anion Gap 5.0 (3-11); Blood Urea Nitrogen 32.0 mg/dl (6-23); Calcium 8.1 mg/dl (8.6-10.3); Carbon Dioxide 36.0 mmol/L (21-32); Chloride 95.0 mmol/L (98-107); Creatinine Clr Calc Pharmacy 89.6 ml/min; Glucose 104.0 mg/dl (70-99(Fasting)); Magnesium 1.7 mg/dl (1.7-2.4); Potassium 3.7 mmol/L (3.5-5.1); Sodium 136.0 mmol/L (136-145)
--- NOTE | 2024-11-09 14:35 | Hospitalist Progress Note ---
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 Patient had a similar presentation on 10/23/2024. During that admission echo showed EF of 45 to 50% and grade 1 diastolic dysfunction, he was treated with IV diuresis and discharged on his home Lasix 40 mg daily and also added spironolactone 12.5 mg on Wednesday and Fridays. Patient had reaccumulation of lower extremity edema after discharge from the hospital. Bilateral lower extremity edema Possible acute on chronic systolic CHF Possible side effect of steroids Patient had reaccumulation of lower extremity edema after discharge from the hospital. Echo done on 10/23/2024 shows EF of 45 to 50%. Grade 1 diastolic dysfunction Patient diuresed with IV Lasix with improvement in lower extremity edema. Steroid use could be contributory to underlying cause for retention. Patient has history of metastatic lung cancer with no significant improvement on treatment; he is on Decadron 4 mg. Prior attending discussed regarding decreasing the dose with his oncologist Dr. Trinidad over [place] text; recommended to decrease Decadron gradually; Decadron changed to 2mg once a day. Was changed to p.o. torsemide given borderline blood pressure Per prior attending: Goals of care also discussed at bedside on 11/05/2024; patient acknowledges that he has metastatic lung cancer is not curable; he has been hospitalized multiple times in recent month. He reports that he does not want to go to [facility]; wants to remain in his house for remaining of his life. He is open to hospice care at home so that he will have hospital bed, assistive device at home. I offered to talk with his daughter as well; he declined at this time. Palliative care has been consulted for comanagement to assist with goals of care discussion and possible hospice transition at home. Code status changed as per discussion to dnr/dni Pt would like to go rehab first and possible to home /w hospice from there. Pt to f/u w/ palliative on dischage. Acute urinary retention status post Jackson placement Patient was found to have urinary retention for which Jackson was placed in the ED Urine analysis does not show signs of infection Plan to do trial of void prior to discharge Possible cellulitis of left lower extremity Small on the left perez with mild erythema surrounding Will continue with Rocephin and monitor for response; tx for 7 days Leukocytosis: Chronically elevated History of paroxysmal atrial fibrillation: On metoprolol succinate and Eliquis- continue Hyperlipidemia: On statin-continue COPD, Pulmonary fibrosis: Continue home inhalers Chronic right popliteal thrombus: On Eliquis Complete heart block status post PPM Chronic bundle-branch block Hypertension: On metoprolol succinate and diuretics Chronic anemia: Hemoglobin 9 to 10; stable Metastatic non-small cell lung cancer So far received 3 lines of chemo treatment for lung cancer PET scan on 10/04/2024 showed mildly increased size and metabolic activity of the left lower lobe nodule without any evidence of new disease and persistent hypermetabolic activity of the bilateral adrenal glands which have enlarged Currently not on any chemo. Per heme/onco :Plan to follow CBC and CMP.And plan to repeat PET scan in 3 months Following with heme-onc Palliative care consulted for comanagement for goals of care discussion given patient's recurrent frequent hospitalization and metastatic lung cancer. DVT prophylaxis: On Eliquis Disposition: Telemetry CODE STATUS dnr/dni Admission and Anticipated Discharge Date Admission Date: November 05, 2024 Subjective Patient seen and examined at bedside. He is comfortable; not in any distress. Denies any chest pain or shortness of breath. Physical Exam Physical Exam: General-Not in distress. Head- atraumatic Eyes- PERRL ENT- oropharynx clear Neck- supple, no JVD. Lungs- clear to auscultation no wheezing or crackles Heart- regular rhythm; no murmur, no gallop. Abdomen- normal bowel sounds, soft, nontender, no distension Extremities- b/l 1 +lower extremity edema present,, small open wound seen on left perez with mild surrounding erythema, improved. Neuro- alert, oriented x 3; PERRL, no facial palsy; no dysarthria; moves extremities Results & Data Results & Data Vital Signs (Past 12 Hours) Vital Signs Temp Pulse Resp BP Pulse Ox O2 Del Method 11/09/24 11:09 36.9 C 87 19 92/59 L 90 Room Air 11/09/24 07:17 36.6 C 76 18 101/64 93 Room Air
[2024-11-10 07:39] VITALS: BP 106/65; PULSE 69; RESP 18; TEMP 97.9; O2SAT 92
[2024-11-10 07:52] LABS: Anion Gap 3.0 (3-11); Blood Urea Nitrogen 41.0 mg/dl (6-23); Calcium 8.6 mg/dl (8.6-10.3); Carbon Dioxide 38.0 mmol/L (21-32); Chloride 95.0 mmol/L (98-107); Creatinine Clr Calc Pharmacy 92.0 ml/min; Glucose 96.0 mg/dl (70-99(Fasting)); Magnesium 1.7 mg/dl (1.7-2.4); Potassium 4.0 mmol/L (3.5-5.1); Sodium 136.0 mmol/L (136-145)
--- NOTE | 2024-11-10 12:00 | Discharge Summary ---
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 Patient had a similar presentation on 10/23/2024. During that admission echo showed EF of 45 to 50% and grade 1 diastolic dysfunction, he was treated with IV diuresis and discharged on his home Lasix 40 mg daily and also added spironolactone 12.5 mg on Wednesday and Fridays., Today comes again with lower extremity edema and also some weeping of the left leg. Patient states last admission it took 4 days for swelling to go down. But the patient says the swelling started to come back. Patient states when he stands up the swelling is worse. Having ambulatory dysfunction because of swelling. He ambulates with a cane. Lives alone. Daughter lives close by. Appetite has been not been great. Denies any fevers. Normal bowel and bladder movements. No abdominal pain. No chest pain. No shortness of breath. No headache. No runny nose or sore throat. Hemodynamics are okay. Past medical history. As mentioned above Past surgical history. Bronchoscopy. Pacemaker insertion. Social history. Smoked seems for 1 or 2 years. No alcohol use. No drug use. Family history. Mother had lung disorder. Admission Exam Per Admitting Provider General-Not in distress. Head- atraumatic Eyes- PERRL ENT- oropharynx clear Neck- supple, no JVD. Lungs- clear to auscultation no wheezing or crackles Heart- regular rhythm; no murmur, no gallop. Abdomen- normal bowel sounds, soft, nontender, no distension Extremities- b/l gross lower extremity edema present,, small open wound seen on left perez with mild surrounding erythema . Neuro- alert, oriented x 3; PERRL, no facial palsy; no dysarthria; moves extremities Principal Diagnosis Bilateral lower extremity edema Possible acute on chronic systolic CHF Possible side effect of steroids Acute urinary retention status post Ortiz placement, now removed Discharge Exam General-Not in distress. Head- atraumatic Eyes- PERRL ENT- oropharynx clear Neck- supple, no JVD. Lungs- clear to auscultation no wheezing or crackles Heart- regular rhythm; no murmur, no gallop. Abdomen- normal bowel sounds, soft, nontender, no distension Extremities- b/l 1 +lower extremity edema present,, small open wound seen on left perez with mild surrounding erythema, improved. Neuro- alert, oriented x 3; PERRL, no facial palsy; no dysarthria; moves extremities Discharge Data Allergies Allergy/AdvReac Type Severity Reaction Status Date / Time No Known Allergies Allergy Verified 11/05/24 00:24 Consultations 11/05/24 08:00 Consult Cardiology Routine 11/06/24 07:31 Consult Palliative Care Routine Ordered Studies 11/07/24 03:52 CT leg [CT tib/fib RT wo con] Stat Hospital Course (1) Heart failure, systolic, with acute decompensation: 74-year-old male with past medical history significant for dyslipidemia, COPD, pulmonary fibrosis, sleep apnea, paroxysmal atrial fibrillation, hypertension, left bundle branch block, history of CAD, history of complete heart block status post permanent pacemaker, 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 Patient had a similar presentation on 10/23/2024. During that admission echo showed EF of 45 to 50% and grade 1 diastolic dysfunction, he was treated with IV diuresis and discharged on his home Lasix 40 mg daily and also added spironolactone 12.5 mg on Wednesday and Fridays. Patient had reaccumulation of lower extremity edema after discharge from the hospital. Bilateral lower extremity edema Possible acute on chronic systolic CHF Possible side effect of steroids Patient had reaccumulation of lower extremity edema after discharge from the hospital. Echo done on 10/23/2024 shows EF of 45 to 50%. Grade 1 diastolic dysfunction Patient diuresed with IV Lasix with improvement in lower extremity edema. Steroid use could be contributory to underlying cause for retention. Patient has history of metastatic lung cancer with no significant improvement on treatment; he is on Decadron 4 mg. Prior attending discussed regarding decreasing the dose with his oncologist Dr. Trinidad over [place] text; recommended to decrease Decadron gradually; Decadron changed to 2mg once a day. Was changed to p.o. torsemide given borderline blood pressure Per prior attending: Goals of care also discussed at bedside on 11/05/2024; patient acknowledges that he has metastatic lung cancer is not curable; he has been hospitalized multiple times in recent month. He reports that he does not want to go to [facility]; wants to remain in his house for remaining of his life. He is open to hospice care at home so that he will have hospital bed, assistive device at home. I offered to talk with his daughter as well; he declined at this time. Palliative care has been consulted for comanagement to assist with goals of care discussion and possible hospice transition at home. Code status changed as per discussion to dnr/dni Pt states he is tired of waiting for rehab, he will want to leave hospital today, even if it means leaving AMA. Pt states he will have meeting w/ his oncology come Wednesday, then he will decide on hospice. Acute urinary retention status post Ortiz placement Patient was found to have urinary retention for which Ortiz was placed in the ED Urine analysis does not show signs of infection can do void trial, remove ortiz. pt agreed. Possible cellulitis of left lower extremity Small on the left perez with mild erythema surrounding Will continue with Rocephin and monitor for response; tx for 7 days, 2 more day of po atb on dc. Leukocytosis: Chronically elevated History of paroxysmal atrial fibrillation: On metoprolol succinate and Eliquis- continue Hyperlipidemia: On statin-continue COPD, Pulmonary fibrosis: Continue home inhalers Chronic right popliteal thrombus: On Eliquis Complete heart block status post PPM Chronic bundle-branch block Hypertension: On metoprolol succinate and diuretics Chronic anemia: Hemoglobin 9 to 10; stable Metastatic non-small cell lung cancer So far received 3 lines of chemo treatment for lung cancer PET scan on 10/04/2024 showed mildly increased size and metabolic activity of the left lower lobe nodule without any evidence of new disease and persistent hypermetabolic activity of the bilateral adrenal glands which have enlarged Currently not on any chemo. Per heme/onco :Plan to follow CBC and CMP.And plan to repeat PET scan in 3 months Following with heme-onc Palliative care consulted for comanagement for goals of care discussion given patient's recurrent frequent hospitalization and metastatic lung cancer. DVT prophylaxis: On Eliquis Disposition: Telemetry CODE STATUS dnr/dni Patient is being discharged to home with home and with following instructions at the point of discharge: Follow-up with your primary care physician within a week time and likely you will need labs CBC/CMP/magnesium/phosphorus. Your Decadron is changed to 2 mg daily, coordinate with your oncology office come Wednesday (which you have appointment with per yourself) for tapering down this dose gradually to stop as appropriate. We recommend that you follow up with palliative care upon discharge, coordinate with your PCP office to set up the referral. You will be discharged on few days of antibiotic to complete course for left leg cellulitis. Ideally would recommend you maintain fluid restriction of 1500 ml per day and low sodium (<2g/d)/heart healthy diet but again it depends on your comfort level depending the route of care you choose going forward after oncology evaluation come Wednesday. Take your medications as prescribed. Please make sure that you are able to get your medications today by calling your pharmacy before you leave the hospital so that your treatment continuity is not broken. Home Health Attestation I certify that this patient is under my care and that I, or a physicians power plant assistant working with me, had a face to-face encounter that meets the home health [id number] encounter requirements with this patient. The encounter with the patient was in whole, or in part, for the following medical condition, which is the primary reason for home health care (list medical condition): I certify that, based on my findings, the following services are medically necessary home health services: My clinical findings support the need for the above services because: Further, I certify that my clinical findings support that this patient is homebound (i.e. absences from home require considerable and taxing effort and are for medical reasons or sikhism services or infrequently or of short duration when for other reasons) because: Certification for Home Health Services: Based on the above findings, I certify that this patient is confined to the home and needs intermittent penitentiary care, physical therapy and/or speech therapy or continues to need occupational therapy. The patient is under my care, and I have initiated the establishment of the plan of care. This patient will be followed by a physician who will periodically review the plan of care. Total Time Total Time Spent Total Time Spent (In Minutes): 40 Discharge Plan Discharge Items Patient Disposition: Home - Home Health Services Reason For Visit: ACUTE SYSTOLIC CHF Discharge Diagnosis: Bilateral lower extremity edema Possible acute on chronic systolic CHF Possible side effect of steroids Acute urinary retention status post Ortiz placement, now removed Condition on Discharge: Good Activity: Resume your previous activity Non-emergency contact: Primary Care Provider Call non-emergency contact if: you have any medication questions Follow-up/Referrals: Tito Valenzuela, [Primary Care Provider] - Diet: Heart Healthy and Low Sodium (2gm) Addtl Attending Provider Instructions: Follow-up with your primary care physician within a week time and likely you will need labs CBC/CMP/magnesium/phosphorus. Your Decadron is changed to 2 mg daily, coordinate with your oncology office come Wednesday (which you have appointment with per yourself) for tapering down this dose gradually to stop as appropriate. We recommend that you follow up with palliative care upon discharge, coordinate with your PCP office to set up the referral. You will be discharged on few days of antibiotic to complete course for left leg cellulitis. Ideally would recommend you maintain fluid restriction of 1500 ml per day and low sodium (<2g/d)/heart healthy diet but again it depends on your comfort level depending the route of care you choose going forward after oncology evaluation come Wednesday. Take your medications as prescribed. Please make sure that you are able to get your medications today by calling your pharmacy before you leave the hospital so that your treatment continuity is not broken. Pending Studies at Discharge: No Stand-Alone Forms: [facility] Medications and DC Order Prescriptions: New torsemide 20 mg Tablet 20 mg PO QAM Qty: 30 0RF dexamethasone 1 mg Tablet 2 mg PO QAM Qty: 20 0RF metoprolol succinate 25 mg Tablet Extended Release 24 Hr 12.5 mg PO QAM Qty: 15 0RF cefdinir 300 mg capsule 300 mg PO BID 2 Days Qty: 4 0RF Continued atorvastatin 40 mg tablet 40 mg PO QAM Eliquis 5 mg (74 tabs) tablets,dose pack 5 mg PO BID multivitamin Tablet 1 tab PO QAM Trelegy Ellipta 100-62.5-25 mcg blister with device 1 inh INHALATION DAILY calcium carbonate-vitamin D3 600 mg-5 mcg (200 unit) Tablet 1 tab PO DAILY ferrous sulfate [iron] 325 mg (65 mg iron) Tablet 325 mg PO DAILY loratadine 10 mg Tablet 10 mg PO DAILY PRN (Reason: Congestion) acetaminophen 500 mg Tablet 1,000 mg PO BID PRN (Reason: Pain) spironolactone 25 mg tablet 12.5 mg PO 3XWK Rx Instructions: MON, WED, & FRI gabapentin 200 mg PO TID trazodone 100 mg PO Discontinued metoprolol succinate 25 mg tablet extended release 24 hr 25 mg PO QAM dexamethasone 4 mg tablet 4 mg PO QAM furosemide 40 mg Tablet 40 mg PO QAM Qty: 30 0RF Discharge Orders: Discharge Order (Routine); Ordered 11/10/24 Ordered By: Presley Rios Admission Data Admit Date/Time: 11/05/24 03:41 Attending Provider: Presley Rios Admit Provider: Kiran Henry Primary Care Provider: Tito Valenzuela Other Providers: Nickie Palma; Nisha James; Khai Estevez; Josh Levi; Joaquin Ott; Lukas Soto; Shant Clements; Kristal Vidales; Carolin Antony; Zuly Atkins; Sumaya Ojeda Ashley M.; Raimundo Cage; Ricardo Marcum; Radha Rossi; Loreta Goodwin; Shirley Morse; Greg Dowling; Samuel House; Angelita Moy; Ericka Meadows; Hood Dickinson
== END 2024-11-10 15:15 | disposition home health service (06) | DRG 291 ==
LOC: ED 22:41 → EDINP 11-05 03:41 → SUATTDRO 11-05 03:41 → 2S 11-05 09:53 → 3W 11-09 19:12

== ENCOUNTER 2024-11-17 11:57 | Inpatient (IN) ==
[2024-11-17] MEDS: SODIUM CHLORIDE 0.9% 500 ML IV SCH (12:16)
--- NOTE | 2024-11-17 12:22 | XRay Report ---
XR chest 1V portable CLINICAL HISTORY: Sepsis COMPARISON STUDY: 11/04/2024 FINDINGS: Stable pacemaker and chest port. Stable moderate cardiomegaly with mild pulmonary vascular congestion. There is increased reticular and patchy opacity at the left lung base. No pleural effusio n or pneumothorax. IMPRESSION: Pneumonia left lung base. ACT 112: Negative or not required by law. Electronically signed by: Jonathan Lemus M.D. 11/17/2024 12:21 PM
[2024-11-17 12:26] LABS: Base Excess VBG 11.1 mEq/L; HCO3 VBG 34 mmol/L; Hematocrit (blood only) 33.4 % (42.0-52.0); Hemoglobin 10.9 g/dl (14.0-18.0); Mean Corpuscular Hemoglobin 33.9 pg (25.0-34.0); Mean Corpuscular Volume 103.7 fL (80.0-100.0); Oxygen Saturation VBG 87.2 %; PCO2 VBG 37 mmHg (38-50); PO2 VBG 54 mmHg; Platelet Count 144 K/uL (130-400); RDW Standard Deviation 67.8 fL (36.4-46.3); Red Blood Count 3.22 M/uL (4.70-6.10); White Blood Count 17.37 K/ul (4.8-10.8); pH VBG 7.57 (7.36-7.41)
[2024-11-17 12:48] LABS: Acanthocytes 1+; Immature Granulocytes # (auto) 0.17 K/uL (0.01-0.20); Immature Granulocytes % (auto) 1.0 %; Polychromasia 1+
[2024-11-17 12:52] LABS: Alanine Aminotransferase 29.0 U/L (7-52); Alkaline Phosphatase 84.0 U/L (34-104); Anion Gap 10.0 (3-11); Bilirubin,Total 0.7 mg/dl (0.2-1.0); Blood Urea Nitrogen 25.0 mg/dl (6-23); Calcium 8.3 mg/dl (8.6-10.3); Carbon Dioxide 32.0 mmol/L (21-32); Chloride 93.0 mmol/L (98-107); Creatinine Clr Calc Pharmacy 86.1 ml/min; Glucose 138.0 mg/dl (70-99(Fasting)); Magnesium 1.5 mg/dl (1.7-2.4); Potassium 3.3 mmol/L (3.5-5.1); Sodium 135.0 mmol/L (136-145); Total Protein 5.5 gm/dl (6.0-8.3)
[2024-11-17 13:13] LABS: INR 1.2 (0.9-1.1); Partial Thromboplastin Time 28 Seconds (21-31); Prothrombin Time 13.0 Seconds (9.0-12.0)
[2024-11-17] MEDS: PIPERACILLIN/TAZOBACTAM 4.5 GM/100 ML BAG IV ONE (13:18)
[2024-11-17] MEDS: ALBUT/IPRATROP 3MG/0.5MG NEB 3 ML VIAL NEB STA (13:18)
[2024-11-17] MEDS ORDERED: VANCOMYCIN CONSULT ACTIVE PRN (13:55)
[2024-11-17] MEDS: SODIUM CHLORIDE 0.9% 1,000 ML IV ONE ×2 (13:58→14:48)
--- NOTE | 2024-11-17 13:58 | Emergency Department Note ---
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 The patient has advanced cancer. He was admitted to our hospital recently and discharged a week ago. The patient states that since discharge, he has become increasingly fatigued to the point where he can no longer get into his home. He has been staying at his shop and sleeping in his car. Patient was found in his car today and was not able to get out on his own. He was brought for evaluation. The patient does not wear oxygen at baseline. He was noted to be hypoxic when seen by EMS. Currently, he complains of fatigue and is asking for a Jackson catheter, he thinks he may be again retaining urine. This was an issue for him once before. The patient denies any fever. His cough has not increased lately. He has not noticed shortness of breath. No vomiting or diarrhea. No chest pain. PMHx/PSHx/Social Hx: See Below PHYSICAL EXAM: GENERAL: Patient is in no acute distress. HEENT: No acute trauma, normocephalic atraumatic, mucous membranes dry, no nasal congestion. NECK: No stridor, no adenopathy, no meningismus, trachea is midline. LUNGS: Diminished breath sounds with some scattered crackles. Breath sounds are significantly decreased on the left. HEART: 2/6 systolic murmur, regular rate and rhythm. ABDOMEN: Soft, nontender, no peritonitis. EXTREMITIES: No cyanosis, full range of motion of all the joints without pain or difficulty. Mild bilateral pedal edema. NEUROLOGIC: Oriented x 3, no acute motor or sensory deficits, no focal weakness. SKIN: No jaundice, no diaphoresis. DIFFERENTIAL DIAGNOSIS: Pneumonia, bacteremia or sepsis, anemia, electrolyte imbalance, debilitation, among others. EMERGENCY DEPARTMENT PROCEDURES: MEDICAL DECISION MAKING: There is a leukocytosis, this could be consistent with infection. The patient is anemic, however, this is a chronic finding. There is a normal platelet count. INR is slightly high at 1.2. VBG does not show any respiratory acidosis. Potassium and magnesium were both somewhat low. No renal failure. Ammonia level was not elevated. No concerning liver enzyme elevation. ECG shows a ventricular pacemaker, no obvious ST elevation. Cardiac enzyme testing x 1 is slightly elevated. This troponin elevation could be secondary to mismatch or acute cardiac injury. Looking back at previous troponin testing, the patient does sometimes have a mildly high troponin value. Chest x-ray shows worsening left sided pneumonia. No pneumothorax. On exam, the patient did eventually become a bit hypotensive. He seemed dehydrated clinically. The patient was given 2.5 L of IV saline. This should suffice for 30 cc/kg of saline per sepsis protocol based on the actual body weight. On reassessment, the patient's blood pressure is still somewhat low but I believe improved and acceptable. Looking back at previous BP readings, he always runs a bit low. I do not think pressor therapy is indicated. The patient was given IV Zosyn as antibiotic coverage. He received IV magnesium. He was given a DuoNeb. I did speak with the patient and his friends/family. Hospitalization is indicated given his fatigue, his pneumonia, his hypotension. I did speak with the case management team, the on-call hospitalist was consulted. Prior/Outside records/notes reviewed: Today's EMS notes describing his presentation and transport to this hospital. ECG per my interpretation: Indication was shortness of breath and weakness. The ECG shows a ventricular pacemaker with a rate of 90. There is some baseline artifact seen. There is no ST elevation, no PVCs. Continuous Cardiac Monitoring per my interpretation: An order was placed for continuous cardiac monitoring. The monitor shows a rate of 99 with ventricular pacemaker. Imaging/x-ray results per my interpretation: Chest x-ray shows some chronic change with some increased congestion compared to his baseline along the left base consistent with a possible pneumonia. No pneumothorax. Chronic Medical/Social conditions affecting care: Advanced age, history of advanced cancer. Care/Management discussed with: Case management, the on-call hospitalist. Level of care consideration(s): After review of the information above and other included data: --I believe the patient requires escalation of care to admission Critical Care Note: I have personally spent 41 minutes of critical care time in the direct management of this patient. This includes bedside care, interpretation of diagnostic studies, and testing, discussion with consultants, patient, and family members, and other required patient management activities. This 41 minutes is in excess of all separately billable procedures. DISPOSITION: Admission Past Med/Surg History Problem List (Updated 11/17/24 @ 18:33 by Sergio Jaimes MD) Anemia (Acute) Pneumonia (Acute) Leukocytosis (Acute) Weakness (Acute) Hypotension (Acute) Paroxysmal atrial fibrillation Counseling regarding advanced directives and goals of care Palliative care by specialist Acute hyponatremia (Acute) Lung cancer (Acute) Bilateral edema of lower extremity (Acute) Ambulatory dysfunction (Acute) CHF (congestive heart failure) (Acute) Hypoalbuminemia Heart failure, systolic, with acute decompensation Bilateral edema of lower extremity (Acute) Leukocytosis (Acute) Right leg weakness Elevated troponin (Acute) Leukocytosis (Acute) Deep vein thrombosis (DVT) of right lower extremity (Acute) Weakness (Acute) Metastatic non-small cell lung cancer (Chronic) Biopsy on 11/11/22 Pain from bone metastases (Chronic) Pacemaker (Acute) Placed 09/30/22 Intermittent complete heart block (Acute) Hypertension Medical History DVT (deep venous thrombosis) Right leg LBBB (left bundle branch block) Surgical History Hx of tonsillectomy H/O right knee surgery Meniscus surgery History of surgery Lumbar spine surgery History of bronchoscopy Family History Mother , 79yo CHF (congestive heart failure) Father , 91yo Bladder cancer Brother No problems noted. Sister Lyme disease Many complications from this Daughter No problems noted. Daughter No problems noted. Daughter No problems noted. Daughter No problems noted. 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" - How many Children do You have: 4 Other Information That Helps Us Care for You: No Feels Safe at Home: Yes Safety Concerns: Feels Safe At This Time Diet: regular caffeine: No during the past year weight has: decreased > 10 lbs Assistive Devices: Cane and Glasses Allergies Allergies Allergy/AdvReac Type Severity Reaction Status Date / Time No Known Allergies Allergy Verified 11/05/24 00:24 Home Meds Home Medications Medication Instructions Recorded Confirmed apixaban 5 mg (74 tabs) tablets in 5 mg PO BID 10/01/24 11/17/24 a dose pack (Eliquis) atorvastatin 40 mg tablet 40 mg PO QAM 10/01/24 11/17/24 fluticasone fur. 100 mcg-umeclid 1 inh inhalation DAILY 10/01/24 11/17/24 62.5 mcg-vilant 25 mcg inhalat.powder (Trelegy Ellipta) multivitamin 1 tab PO QAM 10/01/24 11/17/24 acetaminophen 500 mg tablet 1,000 mg PO BID PRN Pain 10/23/24 11/17/24 calcium 600 mg (as 1 tab PO DAILY 10/23/24 11/17/24 carbonate)-vitamin D3 5 mcg (200 unit) tablet ferrous sulfate 325 mg (65 mg 325 mg PO DAILY 10/23/24 11/17/24 iron) tablet (iron) loratadine 10 mg tablet 10 mg PO DAILY PRN Congestion 10/23/24 11/17/24 spironolactone 25 mg tablet 12.5 mg PO 3XWK 11/05/24 11/17/24 gabapentin 100 mg capsule 200 mg PO TID ##0 11/06/24 11/17/24 trazodone 100 mg tablet 100 mg PO HS ##0 11/06/24 11/17/24 megestrol 400 mg/10 mL (40 mg/mL) 0 mg PO UD 11/17/24 11/17/24 oral suspension Previous Rx's Medication Instructions Recorded dexamethasone 1 mg tablet 2 mg (2 x 1 mg) PO QAM #20 tabs 11/10/24 metoprolol succinate 25 mg 12.5 mg (1/2 x 25 mg) PO QAM #15 11/10/24 tablet,extended release 24 hr tabs torsemide 20 mg tablet 20 mg PO QAM #30 tabs 11/10/24 Results & Data (ED) Vital Signs Vital Signs - 24 hr 11/17/24 12:04 11/17/24 12:04 11/17/24 12:04 Temperature 36.8 C Temperature Source Oral Pulse Rate 92 H Pulse Rate [Apical] Respiratory Rate 18 Respiratory Effort / Characteristics Respiratory Depth Respiratory Pattern Blood Pressure 92/61 L Blood Pressure [Right Arm] Blood Pressure Mean 71 Blood Pressure Mean [Right Arm] Blood Pressure Position [Right Arm] Pulse Oximetry 98 95 96 Oxygen Delivery Method Nasal Cannula Room Air Nasal Cannula Oxygen Flow Rate 4 4 Sepsis Recent Fever Within 48 Hours No Sepsis New/Unexplained Change in Mental Status N/A Sepsis Action Taken by Nursing No Action Required 11/17/24 12:22 11/17/24 13:04 Temperature Temperature Source Pulse Rate 99 H Pulse Rate [Apical] 78 Respiratory Rate 18 Respiratory Effort / Characteristics Non-Labored Spontaneous Respiratory Depth Normal Respiratory Pattern Regular Blood Pressure Blood Pressure [Right Arm] 102/60 Blood Pressure Mean Blood Pressure Mean [Right Arm] 74 Blood Pressure Position [Right Arm] Sitting Pulse Oximetry 97 Oxygen Delivery Method Nasal Cannula Oxygen Flow Rate 6 Sepsis Recent Fever Within 48 Hours Sepsis New/Unexplained Change in Mental Status Sepsis Action Taken by Correction Medications Current Medication List: was personally reviewed by me Laboratory Data Attestation: I reviewed the patient's lab results. 11/17/24 12:12 11/17/24 12:12 Lab Results 11/17/24 11/17/24 Range/Units 12:12 13:44 WBC 17.37 H (4.8-10.8) K/ul RBC 3.22 L (4.70-6.10) M/uL Hgb 10.9 L (14.0-18.0) g/dl Hct 33.4 L (42.0-52.0) % MCV 103.7 H (80.0-100.0) fL MCH 33.9 (25.0-34.0) pg MCHC 32.6 (32.0-36.0) g/dL RDW Std Deviation 67.8 H (36.4-46.3) fL RDW Coeff of Kuldeep 17.9 H (11.5-14.5) % Plt Count 144 (130-400) K/uL MPV 9.1 L (9.4-12.4) fL Immature Gran % (Auto) 1.0 % Neut % (Auto) 92.4 % Lymph % (Auto) 0.9 % [place] % (Auto) 5.5 % Eos % (Auto) 0.1 % Baso % (Auto) 0.1 % Neut # (Auto) 16.07 H (1.40-6.50) K/uL Lymph # (Auto) 0.15 L (1.20-3.40) K/uL [place] # (Auto) 0.95 H (0.11-0.59) K/uL Eos # (Auto) 0.01 (0.00-0.50) K/uL Baso # (Auto) 0.02 (0.00-0.20) K/uL Immature Gran # (Auto) 0.17 (0.01-0.20) K/uL Polychromasia 1+ Acanthocytes (Spur) 1+ PT 13.0 H (9.0-12.0) Seconds INR 1.2 H (0.9-1.1) APTT 28 (21-31) Seconds PTT Ratio 1.0 VBG pH 7.57 H (7.36-7.41) VBG pCO2 37 L (38-50) mmHg VBG pO2 54 mmHg VBG HCO3 34 mmol/L VBG O2 Saturation 87.2 % VBG Base Excess 11.1 mEq/L Sodium 135 L (136-145) mmol/L Potassium 3.3 L (3.5-5.1) mmol/L Chloride 93 L (98-107) mmol/L Carbon Dioxide 32 (21-32) mmol/L Anion Gap 10 (3-11) BUN 25 H (6-23) mg/dl Creatinine 0.78 (0.6-1.4) mg/dl Est Cr Clr Drug Dosing 86.1 ml/min eGFR 93.58 BUN/Creatinine Ratio 32.1 H (10-20) Glucose 138 H (70-99(Fasting)) mg/dl Lactate 1.8 (0.4-2.0) mmol/L Calcium 8.3 L (8.6-10.3) mg/dl Magnesium 1.5 L (1.7-2.4) mg/dl Total Bilirubin 0.7 (0.2-1.0) mg/dl Direct Bilirubin 0.2 (0-0.2) mg/dl AST 19 (13-39) U/L ALT 29 (7-52) U/L Alkaline Phosphatase 84 (34-104) U/L Troponin I High Sens 25.3 H (0-20) pg/ml Total Protein 5.5 L (6.0-8.3) gm/dl Albumin 2.6 L (3.4-5.0) gm/dl Procalcitonin 0.37 (0-0.5) ng/ml Administered Medications Gabapentin (Gabapentin 100 Mg Cap) 200 mg PO TID YUNIOR Stop: 12/17/24 15:44 Last Admin: 11/17/24 16:19 Dose: 200 mg Documented By: RICKY Discontinued Medications Albuterol (Albut/Ipratrop 3mg/0.5mg Neb 3 Ml Vial) 3 ml NEB NOW STA; Protocol Stop: 11/17/24 12:35 Last Admin: 11/17/24 13:18 Dose: 3 ml Documented By: GERBER Sodium Chloride (Nss) 500 mls @ 999 mls/hr IV .Q31M YUNIOR Stop: 11/17/24 12:45 Last Infusion: 11/17/24 14:03 Dose: Infused Documented By: Admin: 11/17/24 12:16 Dose: 999 mls/hr Documented By: GERBER Piperacillin Sod/Tazobactam Sod (Zosyn) 4.5 gm in 100 mls @ 200 mls/hr IV NOW ONE Stop: 11/17/24 13:09 Last Infusion: 11/17/24 14:03 Dose: Infused Documented By: Admin: 11/17/24 13:18 Dose: 200 mls/hr Documented By: GERBER Magnesium Sulfate/Dextrose (Magnesium Sulfate / D5w) 1 gm in 100 mls @ 100 mls/hr IV NOW STA Stop: 11/17/24 14:06 Last Infusion: 11/17/24 16:11 Dose: Infused Documented By: Admin: 11/17/24 14:51 Dose: 100 mls/hr Documented By: ISHAN Sodium Chloride (Nss) 1,000 mls @ 999 mls/hr IV .Q1H1M ONE Stop: 11/17/24 14:42 Last Infusion: 11/17/24 15:37 Dose: Infused Documented By: Admin: 11/17/24 14:48 Dose: 999 mls/hr Documented By: ISHAN Sodium Chloride (Nss) 1,000 mls @ 999 mls/hr IV .Q1H1M ONE Stop: 11/17/24 14:49 Last Infusion: 11/17/24 15:37 Dose: Infused Documented By: Admin: 11/17/24 13:58 Dose: 999 mls/hr Documented By: LINDA Vancomycin HCl 1,500 mg/ (Sodium Chloride) 530 mls @ 200 mls/hr IV NOW STA Stop: 11/17/24 16:49 Last Infusion: 11/17/24 17:52 Dose: Infused Documented By: Admin: 11/17/24 15:08 Dose: 200 mls/hr Documented By: ISHAN Imaging Data Radiologist's Impression: Chest X-Ray 11/17/24 12:04 XR chest 1V portable CLINICAL HISTORY: Sepsis COMPARISON STUDY: 11/04/2024 FINDINGS: Stable pacemaker and chest port. Stable moderate cardiomegaly with mild pulmonary vascular congestion. There is increased reticular and patchy opacity at the left lung base. No pleural effusion or pneumothorax. IMPRESSION: Pneumonia left lung base. ACT 112: Negative or not required by law. Electronically signed by: Jonathan Lemus M.D. 11/17/2024 12:21 PM Discharge Plan Visit Data Chief Complaint: Shortness of Breath/Dyspnea Stated Complaint: Shortness of Breath/Dyspnea ED Provider: Sergio Jaimes Discharge Problem: Hypotension, Weakness, Leukocytosis, Pneumonia, Anemia Patient Disposition: Admitted As Inpatient Condition: Fair Discharge Instructions Interventions: ED Discharge Assessment Last Done: 11/17/24 15:23 Discharge Problem: Hypotension Qualifiers: Hypotension type: unspecified hypotension type Qualified Code(s): I95.9 - Hypotension, unspecified Leukocytosis Qualifiers: Leukocytosis type: unspecified Qualified Code(s): D72.829 - Elevated white blood cell count, unspecified Pneumonia Qualifiers: Pneumonia type: due to unspecified organism Laterality: left Lung location: l ower lobe of lung Qualified Code(s): J18.9 - Pneumonia, unspecified organism Anemia Qualifiers: Anemia type: unspecified type Qualified Code(s): D64.9 - Anemia, unspecified
[2024-11-17] MEDS: MAGNESIUM SULFATE / D5W 1 GM/100 ML BAG IV STA (14:51)
[2024-11-17] MEDS: VANCOMYCIN HCL 1,500 MG in SODIUM CHLORIDE 0.9% 500 ML IV STA (15:08)
--- NOTE | 2024-11-17 15:12 | History & Physical Report ---
Date of Service November 17, 2024 Assessment & Plan (1) Pneumonia: (2) Weakness: (3) Paroxysmal atrial fibrillation: (4) Lung cancer: (5) CHF (congestive heart failure): (6) Intermittent complete heart block: (7) Hypertension: Plan 74 yo male with pmhx of dyslipidemia, COPD, pulmonary fibrosis, sleep apnea, paroxysmal atrial fibrillation, hypertension, left bundle branch block, history of CAD, history of complete heart block status post permanent pacemaker, chronic DVT of the popliteal vein of the right lower extremity, GERD, insomnia, metastatic lung adenocarcinoma who presents for fatigue and weakness 2/2 end stage lung adenocarcinoma. #End Stage Metastatic NSCLC #Acute on Chronic Hypoxic Respiratory Failure #Pulmonary Fibrosis #COPD #DAVID #Severe Sepsis #HAP -patient presenting with diffuse weakness and fatigue -follows with Dr. Trinidad outpatient, s/p docetaxel, carboplatin, keytruda, capmatinib, plan was for outpatient f/u PET scan given poor overall condition -patient with ECOG 3 sliding to 4 at this time, cachexia and sarcopenia noted -prognosis on scale of days to weeks, discussed GOC, will attempt to stabilize patient for discharge home with hospice services -patient aware that he may in the hospital, does not want CPR, intubation, Bipap, artificial life support other than high flow NC -xray with LLL infiltrate consistent with likely HAP given recent hospitalization -sepsis due to leukocytosis, tachycardia, severe due to borderline shock, troponinn elevation Plan: -vanc/zosyn ordered -continue fluid resuscitation -discuss with case management in AM about getting hospice services on board on discharge, patient agreeable -patient wants daughter Carolin at [phone] to be point person for this -incentive spirometer, flutter valve -f/u blood cultures, sputum culture, MRSA swab -high flow NC only, patient does not want Bipap -hold megestrol, aldactone, torsemide, iron at this time -increase decadron to 4mg given poor energy, severe sepsis 2/2 HAP #S/p Pacemaker Placement #Paroxysmal Atrial Fibrillation -continue eliquis -continue statin #Macrocytic Anemia -chronic, at baseline #Type 2 NC -likely 2/2 severe dehydration, severe sepsis I spent a total of 90 minutes in direct patient care, including [id number] time with the patient and/or family, reviewing medical records, ordering and reviewing diagnostic tests, and coordinating care with other healthcare providers. This time includes: history taking, physical examination, medical decision making, counseling, ECG interpretation, imaging interpretation, lab interpretation, orders, and education, excluding time spent in the performance of separately billed services. I spent a total of 30 minutes providing advanced care planning to the patient and/or family, including [id number] time discussing the patient's health status, prognosis, and treatment options. This time includes specific activities such as: discussing advance directives, goals of care, prognostication, and end-of-life planning. History of Present Illness Chief Complaint: -fatigue, weakness Primary Care Provider: Tito Valenzuela, DO 74 yo male with pmhx of dyslipidemia, COPD, pulmonary fibrosis, sleep apnea, paroxysmal atrial fibrillation, hypertension, left bundle branch block, history of CAD, history of complete heart block status post permanent pacemaker, chronic DVT of the popliteal vein of the right lower extremity, GERD, insomnia, metastatic lung adenocarcinoma who presents for fatigue and weakness. Had recent admission 1 week ago for decompensated heart failure. In the ED, given zosyn, fluids, admitted to medicine. Patient seen and examined at bedside. See advanced care planning note in chart. Patient not doing well today. States he is fatigued and so weak he can barely stand up. Burning pain in bilateral LE noted per patient. No nausea, vomiting, headache, diarrhea, other symptoms. Despite his oxygen needs he denies SOB at this time. DNRDNI, will discharge home with hospice, ok with high flow NC but not Bipap. Goals are to try to survive this hospitalization with non-heroic measures and discharge home with hospice services. Allergies Allergy/AdvReac Type Severity Reaction Status Date / Time No Known Allergies Allergy Verified 11/05/24 00:24 Home Medications Medication Instructions Recorded Confirmed Type apixaban 5 mg (74 tabs) tablets in 5 mg PO BID 10/01/24 11/17/24 History a dose pack (Eliquis) atorvastatin 40 mg tablet 40 mg PO QAM 10/01/24 11/17/24 History fluticasone fur. 100 mcg-umeclid 1 inh inhalation DAILY 10/01/24 11/17/24 History 62.5 mcg-vilant 25 mcg inhalat.powder (Trelegy Ellipta) multivitamin 1 tab PO QAM 10/01/24 11/17/24 History acetaminophen 500 mg tablet 1,000 mg PO BID PRN Pain 10/23/24 11/17/24 History calcium 600 mg (as 1 tab PO DAILY 10/23/24 11/17/24 History carbonate)-vitamin D3 5 mcg (200 unit) tablet ferrous sulfate 325 mg (65 mg 325 mg PO DAILY 10/23/24 11/17/24 History iron) tablet (iron) loratadine 10 mg tablet 10 mg PO DAILY PRN Congestion 10/23/24 11/17/24 History spironolactone 25 mg tablet 12.5 mg PO 3XWK 11/05/24 11/17/24 History gabapentin 100 mg capsule 200 mg PO TID ##0 11/06/24 11/17/24 History trazodone 100 mg tablet 100 mg PO HS ##0 11/06/24 11/17/24 History dexamethasone 1 mg tablet 2 mg (2 x 1 mg) PO QAM #20 tabs 11/10/24 11/17/24 Rx metoprolol succinate 25 mg 12.5 mg (1/2 x 25 mg) PO QAM #15 11/10/24 11/17/24 Rx tablet,extended release 24 hr tabs torsemide 20 mg tablet 20 mg PO QAM #30 tabs 11/10/24 11/17/24 Rx megestrol 400 mg/10 mL (40 mg/mL) 0 mg PO UD 11/17/24 11/17/24 History oral suspension Past Med/Surg History Problem List (Updated 11/17/24 @ 18:33 by Sergio Jaimes MD) Anemia (Acute) Pneumonia (Acute) Leukocytosis (Acute) Weakness (Acute) Hypotension (Acute) Paroxysmal atrial fibrillation Counseling regarding advanced directives and goals of care Palliative care by specialist Acute hyponatremia (Acute) Lung cancer (Acute) Bilateral edema of lower extremity (Acute) Ambulatory dysfunction (Acute) CHF (congestive heart failure) (Acute) Hypoalbuminemia Heart failure, systolic, with acute decompensation Bilateral edema of lower extremity (Acute) Leukocytosis (Acute) Right leg weakness Elevated troponin (Acute) Leukocytosis (Acute) Deep vein thrombosis (DVT) of right lower extremity (Acute) Weakness (Acute) Metastatic non-small cell lung cancer (Chronic) Biopsy on 11/11/22 Pain from bone metastases (Chronic) Pacemaker (Acute) Placed 09/30/22 Intermittent complete heart block (Acute) Hypertension Medical History DVT (deep venous thrombosis) Right leg LBBB (left bundle branch block) Surgical History Hx of tonsillectomy H/O right knee surgery Meniscus surgery History of surgery Lumbar spine surgery History of bronchoscopy Family History Mother , 79yo CHF (congestive heart failure) Father , 91yo Bladder cancer Brother No problems noted. Sister Lyme disease Many complications from this Daughter No problems noted. Daughter No problems noted. Daughter No problems noted. Daughter No problems noted. 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 External ears normal. No rhinorrhea. Dry mucous membranes. Neck: Supple, full range of motion, no observable masses, No meningeal sign. Lungs: rhonchi noted bilaterally CV: tachycardic, irregular rhythm Abdomen: Soft, nondistended, No rebound tenderness. MSK: notable abrasions, appears unkempt Skin: eccymoses noted Neuro: Normal Gait, Grossly intact. Psych: Appropriate for situation. Results & Data Results & Data Vital Signs (Past 12 Hours) Vital Signs Temp Pulse Pulse Resp BP BP Pulse Ox 11/17/24 14:11 93 H 18 106/59 L 97 11/17/24 13:04 78 18 102/60 97 11/17/24 12:22 99 H 11/17/24 12:04 96 11/17/24 12:04 95 11/17/24 12:04 36.8 C 92 H 18 92/61 L 98 O2 Del Method O2 Flow Rate 11/17/24 14:11 Nasal Cannula 4 11/17/24 13:04 Nasal Cannula 6 11/17/24 12:22 11/17/24 12:04 Nasal Cannula 4 11/17/24 12:04 Room Air 11/17/24 12:04 Nasal Cannula 4 Laboratory Results -personally reviewed, leukocytosis in setting of severe sepsis, VBG with respiratory alkalosis, BMP with K of 3.3 replenished, Mg of 1.5 replenished, albumin of 2.6 reflective of severe hypoalbuminemia Medications Administered Gabapentin (Gabapentin 100 Mg Cap) 200 mg PO TID YUNIOR Stop: 12/17/24 15:44 Last Admin: 11/17/24 16:19 Dose: 200 mg Documented By: JAVIERG Code Status & VTE Plan Code Status -DNRDNI, see advanced care planning note in chart VTE Prophylaxis Plan VTE Prophylaxis will be ordered: Yes (1) Pneumonia Laterality: left Lung location: lower lobe of lung Pneumonia type: due to unspecified organism Qualified Code(s): J18.9 - Pneumonia, unspecified organism (4) Lung cancer Laterality: unspecified laterality Lung location: unspecified part of lung Qualified Code(s): C34.90 - Malignant neoplasm of unspecified part of unspecified bronchus or lung (5) CHF (congestive heart failure) Heart failure chronicity: acute on chronic Heart failure type: unspecified Qualified Code(s): I50.9 - Heart failure, unspecified
[2024-11-17] MEDS ORDERED: ACETAMINOPHEN 325 MG TAB PO PRN (15:35)
[2024-11-17] MEDS ORDERED: ACETAMINOPHEN 500 MG TAB PO PRN (15:35)
[2024-11-17] MEDS ORDERED: ONDANSETRON INJ 2 MG/ML 2 ML VIAL IV PRN (15:35)
[2024-11-17] MEDS ORDERED: POLYETHYLENE (MIRALAX) 17 GM PACK PO PRN (15:35)
[2024-11-17] MEDS ORDERED: LORATADINE 10 MG TAB PO PRN (15:35)
--- NOTE | 2024-11-17 16:03 | Electrocardiogram Report ---
Test Reason : Blood Pressure : */* mmHG Vent. Rate : 90 BPM Atrial Rate : 90 BPM P-R Int : 182 ms QRS Dur : 104 ms QT Int : 356 ms P-R-T Axes : 44 -26 18 degrees QTcB Int : 435 ms Atrial-sensed ventricular-paced rhythm Abnormal ECG When compared with ECG of 04-Nov-2024 23:27, Vent. rate has increased by 3 bpm Confirmed by Vic Montoya ([id number]) on 11/17/2024 4:03:31 PM Referred By: REFERRED SELF Confirmed By: Vic Montoya
[2024-11-17] MEDS: GABAPENTIN 100 MG CAP PO SCH (16:19)
--- NOTE | 2024-11-17 20:02 | Advance Care Plan Prog Note ---
Advanced Care Planning Note Date of Discussion November 17, 2024 ACP Discussion Diagnoses requiring ACP discussion: [end stage NSCLC] A [id number] discussion with the [patient, daughter, son in laugh] regarding the patient's advanced care planning took place during this hospitalization on the above date. The discussion included the explanation and discussion of advance directives and associated forms/documents, as well as the patient's current code status. We also discussed at length the patient's medical conditions (both acute and chronic), general prognosis, treatment options, and goals of care. The following summarizes the discussion: Began meeting by introducing myself and role on care team. Discussed the definition of palliative care and hospice at length. Gauged patients and families understanding of his current medical conditions, and they understand he is near the end of his life from lung cancer. The patient feels he is dying. I discussed his severe condition, including severe sepsis from HAP, end stage NSCLC, amongst other issues. 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 He wants to try and get better to accomplish this, but does not want any heroic measures. Discussed that he may this hospitalization, and that his prognosis is likely on scale of days to weeks. He understands this and would like to pursue hospice services on discharge. Would like his daughter to be point person for this (Carolin at [phone]). Does not want to suffer at end of life. DPOA-HC/Surrogate Decision Maker -patient, daughter Status Resuscitation Status DNR/DNI No Resuscitation Total Time I spent a total of [30] minutes was spent on this discussion, including counseling, answering questions, and completing, if any, pertinent advanced care planning forms/documents.
[2024-11-17] MEDS: LACTATED RINGER'S 1,000 ML IV SCH (20:09)
[2024-11-17] MEDS: POTASSIUM CHLORIDE CRTAB 20 MEQ TABCR PO STA (20:09)
[2024-11-17] MEDS: MAGNESIUM SULFATE / D5W 1 GM/100 ML BAG IV SCH (20:10)
[2024-11-17] MEDS: APIXABAN 5 MG TABLET PO SCH (20:11)
[2024-11-17] MEDS: PREGABALIN 25 MG CAP PO SCH (20:19)
[2024-11-17] MEDS: PIPERACILLIN/TAZOBACTAM 4.5 GM/100 ML BAG IV SCH (21:40)
[2024-11-18 00:27] LABS: Appearance Urine Clear (Clear); Bacteria Urine Automated None Seen (None Seen); Cast Urine Automated 0-2 /lpf (0-2); Epithelial Cell Urine Auto 0-2 /hpf (0-2); Glucose Urine UA Negative (Negative)
[2024-11-18] MEDS: VANCOMYCIN HCL 1,000 MG/270 ML BAG IV SCH (00:35)
[2024-11-18 06:16] LABS: Hematocrit (blood only) 25.7 % (42.0-52.0); Hemoglobin 8.7 g/dl (14.0-18.0); Mean Corpuscular Hemoglobin 35.4 pg (25.0-34.0); Mean Corpuscular Volume 104.5 fL (80.0-100.0); Platelet Count 121 K/uL (130-400); RDW Standard Deviation 67.3 fL (36.4-46.3); Red Blood Count 2.46 M/uL (4.70-6.10); White Blood Count 10.29 K/ul (4.8-10.8)
[2024-11-18 06:39] LABS: Alanine Aminotransferase 20.0 U/L (7-52); Albumin Globulin Ratio 0.8 (0.9-2); Alkaline Phosphatase 74.0 U/L (34-104); Anion Gap 3.0 (3-11); Bilirubin,Total 0.6 mg/dl (0.2-1.0); Blood Urea Nitrogen 19.0 mg/dl (6-23); Calcium 7.8 mg/dl (8.6-10.3); Carbon Dioxide 33.0 mmol/L (21-32); Chloride 98.0 mmol/L (98-107); Creatinine Clr Calc Pharmacy 100.0 ml/min; Globulin 2.6 gm/dl (2.5-4.0); Glucose 118.0 mg/dl (70-99(Fasting)); Magnesium 1.9 mg/dl (1.7-2.4); Potassium 4.3 mmol/L (3.5-5.1); Sodium 134.0 mmol/L (136-145); Total Protein 4.7 gm/dl (6.0-8.3)
[2024-11-18] MEDS: ATORVASTATIN 40 MG TAB PO SCH (08:15)
--- NOTE | 2024-11-18 13:49 | Hospitalist Progress Note ---
Date of Service November 18, 2024 Assessment & Plan (1) Pneumonia: (2) Weakness: (3) Paroxysmal atrial fibrillation: (4) Lung cancer: (5) CHF (congestive heart failure): (6) Intermittent complete heart block: (7) Hypertension: Plan 74 yo male with pmhx of dyslipidemia, COPD, pulmonary fibrosis, sleep apnea, paroxysmal atrial fibrillation, hypertension, left bundle branch block, history of CAD, history of complete heart block status post permanent pacemaker, chronic DVT of the popliteal vein of the right lower extremity, GERD, insomnia, metastatic lung adenocarcinoma who presents for fatigue and weakness 2/2 end stage lung adenocarcinoma. #End Stage Metastatic NSCLC #Acute on Chronic Hypoxic Respiratory Failure #Pulmonary Fibrosis #COPD #DAVID #Severe Sepsis #HAP -patient presenting with diffuse weakness and fatigue -follows with Dr. Trinidad outpatient, s/p docetaxel, carboplatin, keytruda, capmatinib, plan was for outpatient f/u PET scan given poor overall condition -patient with ECOG 3 sliding to 4 at this time, cachexia and sarcopenia noted -prognosis on scale of days to weeks, discussed GOC, will attempt to stabilize patient for discharge home with hospice services -patient aware that he may in the hospital, does not want CPR, intubation, Bipap, artificial life support other than high flow NC -xray with LLL infiltrate consistent with likely HAP given recent hospitalization -sepsis due to leukocytosis, tachycardia, severe due to borderline shock, troponinn elevation Plan: -vanc/zosyn ordered -continue fluid resuscitation -discuss with case management in AM about getting hospice services on board on discharge, patient agreeable -patient wants daughter Carolin at [phone] to be point person for this -incentive spirometer, flutter valve -f/u blood cultures, sputum culture, MRSA swab -high flow NC only, patient does not want Bipap -hold megestrol, aldactone, torsemide, iron at this time -increase decadron to 4mg given poor energy, severe sepsis 2/2 HAP 11/18 Feels about the same as yesterday, remains on 6 L of O2 via nasal cannula (not on o2 supplement at home) Afebrile, BP stable, leukocytosis resolving Sputum culture: Pending blood culture: Pending Started Xopenex/Atrovent every 6 hours with hypertonic saline incentive spirometry, flutter valve Continue with Zosyn IV Monitor closely plan is to discharge home with home hospice services once medically optimized #S/p Pacemaker Placement #Paroxysmal Atrial Fibrillation -continue eliquis -continue statin #Macrocytic Anemia -chronic, at baseline #Type 2 PA -likely 2/2 severe dehydration, severe sepsis Disposition home with hospice service once medically optimized Admission and Anticipated Discharge Date Admission Date: November 17, 2024 Subjective follow-up for hospital-acquired pneumonia, metastatic lung cancer, etc seen resting in bed, sitting up, on 6 L of O2 via nasal cannula Patient seems drowsy but conversant, in good spirits, very pleasant States he feels okay overall Breathing is about the same as yesterday, denies active shortness of breath, reports cough with significant sputum production yellow/brown Denies fevers or chills, chest pain, nausea, abdominal pain No other new symptoms Review of Systems Review of Systems: all noted and negative except for above Physical Exam Physical Exam: General- oriented x 3, somewhat drowsy, not in distress, speaks in sentences with no effort or accessory muscle use Eyes- anicteric Neck- no JVD Lungs- (+) mild crackles L lower lung randall no wheezing good air entry BL Heart- normal rate, regular rhythm; no murmurs Abdomen- normal bowel sounds, nondistended, soft, nontender Extremities- no pretibial edema, no calf tenderness Neuro- alert, oriented x 3; no gross focal neurologic deficits Skin- warm & dry Results & Data Results & Data Vital Signs (Past 12 Hours) Vital Signs Temp Pulse Pulse Resp BP Pulse Ox O2 Del Method 11/18/24 12:00 36.8 C 87 20 118/67 97 Nasal Cannula 11/18/24 10:34 Nasal Cannula 11/18/24 07:39 36.6 C 86 20 94/56 L 92 Nasal Cannula 11/18/24 07:00 83 11/18/24 03:59 36.9 C 89 20 103/65 95 Nasal Cannula O2 Flow Rate 11/18/24 12:00 6 11/18/24 10:34 6 11/18/24 07:39 6 11/18/24 07:00 11/18/24 03:59 5 all noted and reviewed including below (1) Pneumonia Laterality: left Lung location: lower lobe of lung Pneumonia type: due to unspecified organism Qualified Code(s): J18.9 - Pneumonia, unspecified organism (4) Lung cancer Laterality: unspecified laterality Lung location: unspecified part of lung Qualified Code(s): C34.90 - Malignant neoplasm of unspecified part of unspecified bronchus or lung (5) CHF (congestive heart failure) Heart failure chronicity: acute on chronic Heart failure type: unspecified Qualified Code(s): I50.9 - Heart failure, unspecified
[2024-11-18] MEDS: IPRATROPIUM BROMIDE NEB SOLN 0.02% 0.5MG/2.5ML VIAL NEB SCH (14:56)
[2024-11-18] MEDS: LEVALBUTEROL 1.25 MG/3 ML NEB NEB SCH (14:56)
[2024-11-18] MEDS: SODIUM CHLOR 7% 4 ML NEB NEB SCH (17:55)
[2024-11-18] MEDS: SODIUM CHLOR 7% 4 ML NEB ONE (17:56)
[2024-11-19 07:19] LABS: Hematocrit (blood only) 26.9 % (42.0-52.0); Hemoglobin 8.5 g/dl (14.0-18.0); Mean Corpuscular Hemoglobin 33.9 pg (25.0-34.0); Mean Corpuscular Volume 107.2 fL (80.0-100.0); Platelet Count 129 K/uL (130-400); RDW Standard Deviation 66.8 fL (36.4-46.3); Red Blood Count 2.51 M/uL (4.70-6.10); White Blood Count 8.60 K/ul (4.8-10.8)
[2024-11-19 07:58] LABS: Alanine Aminotransferase 20.0 U/L (7-52); Albumin Globulin Ratio 0.8 (0.9-2); Alkaline Phosphatase 80.0 U/L (34-104); Anion Gap 4.0 (3-11); Bilirubin,Total 0.4 mg/dl (0.2-1.0); Blood Urea Nitrogen 17.0 mg/dl (6-23); Calcium 8.3 mg/dl (8.6-10.3); Carbon Dioxide 34.0 mmol/L (21-32); Chloride 98.0 mmol/L (98-107); Creatinine Clr Calc Pharmacy 119.0 ml/min; Globulin 2.7 gm/dl (2.5-4.0); Glucose 154.0 mg/dl (70-99(Fasting)); Potassium 4.3 mmol/L (3.5-5.1); Sodium 136.0 mmol/L (136-145); Total Protein 4.8 gm/dl (6.0-8.3)
--- NOTE | 2024-11-19 17:09 | Hospitalist Progress Note ---
Date of Service November 19, 2024 Assessment & Plan (1) Pneumonia: (2) Weakness: (3) Paroxysmal atrial fibrillation: (4) Lung cancer: (5) CHF (congestive heart failure): (6) Intermittent complete heart block: (7) Hypertension: Plan Mr. Molina is a 74 yo male with pmhx of dyslipidemia, COPD, pulmonary fibrosis, sleep apnea, paroxysmal atrial fibrillation, hypertension, left bundle branch block, history of CAD, history of complete heart block status post permanent pacemaker, chronic DVT of the popliteal vein of the right lower extremity, GERD, insomnia, metastatic lung adenocarcinoma who presents for fatigue and weakness 2/2 end stage lung adenocarcinoma and admitted for acuet on chronic hypoxic resp failure iso sepsis and HAP. Discussed with daughter today hospice. Daughter will discuss transition to comfort measures in am #End Stage Metastatic NSCLC #Acute on Chronic Hypoxic Respiratory Failure #Pulmonary Fibrosis #COPD #DAVID #Severe Sepsis #HAPe -follows with Dr. Trinidad outpatient, s/p docetaxel, carboplatin, keytruda, capmatinib, plan was for outpatient f/u PET scan given poor overall condition -patient with ECOG 3 sliding to 4 at this time, cachexia and sarcopenia noted -prognosis on scale of days to weeks, discussed GOC, will attempt to stabilize patient for discharge home with hospice services -patient aware that he may in the hospital, does not want CPR, intubation, Bipap, artificial life support other than high flow NC -xray with LLL infiltrate consistent with likely HAP given recent hospitalization -sepsis due to leukocytosis, tachycardia, severe due to borderline shock, troponin elevation Blood cultures ngtd UA negative, sputum with pin point MRSA swab negative, discontinue vanc Continue vanc/zosyn Plan for possible transition to Comfort measures in am -hold megestrol, aldactone, torsemide, iron at this time -continue decadron to 4mg given poor energy, severe sepsis 2/2 HAP Started Xopenex/Atrovent every 6 hours with hypertonic saline incentive spirometry, flutter valve Continue with Zosyn IV Monitor closely #S/p Pacemaker Placement #Paroxysmal Atrial Fibrillation -continue eliquis -continue statin #Macrocytic Anemia -chronic, at baseline #Type 2 [place] -likely 2/2 severe dehydration, severe sepsis Disposition home with hospice service once medically optimized Admission and Anticipated Discharge Date Admission Date: November 17, 2024 Subjective Alert to self this am very confused, fixated on ensuring his "children all must visit" unable to ascertain any clear complaints reduced o2 needs, on 4L at this time from [facility] Physical Exam Constitutional: confused, a bit agitated this am Respiratory: diminished 2/2 effort Cardiovascular: RRR, no murmur, no edema Results & Data Results & Data Vital Signs (Past 12 Hours) Vital Signs Temp Pulse Pulse Resp BP Pulse Ox O2 Del Method 11/19/24 15:30 36.4 C L 86 20 103/64 95 Nasal Cannula 11/19/24 14:00 87 11/19/24 12:35 77 18 95 Nasal Cannula 11/19/24 11:59 36.3 C L 70 24 107/66 94 Room Air 11/19/24 10:25 Nasal Cannula 11/19/24 08:10 36.3 C L 77 20 123/77 99 Nebulizer 11/19/24 07:30 76 11/19/24 07:09 73 16 96 Nasal Cannula O2 Flow Rate 11/19/24 15:30 4 11/19/24 14:00 11/19/24 12:35 4 11/19/24 11:59 11/19/24 10:25 4 11/19/24 08:10 11/19/24 07:30 11/19/24 07:09 4 Laboratory Results Short CBC 11/19/24 Range/Units 06:11 WBC 8.60 (4.8-10.8) K/ul Hgb 8.5 L (14.0-18.0) g/dl Hct 26.9 L (42.0-52.0) % Plt Count 129 L (130-400) K/uL BMP 11/19/24 06:11 Sodium 136 Potassium 4.3 Chloride 98 Carbon Dioxide 34 H BUN 17 Creatinine 0.58 L Glucose 154 H Calcium 8.3 L Liver Function 11/19/24 Range/Units 06:11 Total Bilirubin 0.4 (0.2-1.0) mg/dl AST 16 (13-39) U/L ALT 20 (7-52) U/L Alkaline Phosphatase 80 (34-104) U/L Albumin 2.1 L (3.4-5.0) gm/dl Medications Administered Home Medications Medication Instructions Recorded Confirmed Last Taken apixaban 5 mg (74 tabs) tablets in 5 mg PO BID 10/01/24 11/17/24 11/03/24 a dose pack (Eliquis) atorvastatin 40 mg tablet 40 mg PO QAM 10/01/24 11/17/24 11/03/24 fluticasone fur. 100 mcg-umeclid 1 inh inhalation DAILY 10/01/24 11/17/24 62.5 mcg-vilant 25 mcg inhalat.powder (Trelegy Ellipta) multivitamin 1 tab PO QAM 10/01/24 11/17/24 11/03/24 acetaminophen 500 mg tablet 1,000 mg PO BID PRN Pain 10/23/24 11/17/24 Unknown calcium 600 mg (as 1 tab PO DAILY 10/23/24 11/17/24 11/03/24 carbonate)-vitamin D3 5 mcg (200 unit) tablet ferrous sulfate 325 mg (65 mg 325 mg PO DAILY 10/23/24 11/17/24 11/03/24 iron) tablet (iron) loratadine 10 mg tablet 10 mg PO DAILY PRN Congestion 10/23/24 11/17/24 Unknown spironolactone 25 mg tablet 12.5 mg PO 3XWK 11/05/24 11/17/24 11/03/24 gabapentin 100 mg capsule 200 mg PO TID ##0 11/06/24 11/17/24 Unknown trazodone 100 mg tablet 100 mg PO HS ##0 11/06/24 11/17/24 Unknown dexamethasone 1 mg tablet 2 mg (2 x 1 mg) PO QAM #20 tabs 11/10/24 11/17/24 Unknown metoprolol succinate 25 mg 12.5 mg (1/2 x 25 mg) PO QAM #15 11/10/24 11/17/24 Unknown tablet,extended release 24 hr tabs torsemide 20 mg tablet 20 mg PO QAM #30 tabs 11/10/24 11/17/24 Unknown megestrol 400 mg/10 mL (40 mg/mL) 0 mg PO UD 11/17/24 11/17/24 Unknown oral suspension Active Medications Generic Name Dose Route Start Last Admin Trade Name Freq PRN Reason Stop Dose Admin Apixaban 5 mg 11/17/24 21:00 11/19/24 08:11 Apixaban 5 Mg Tablet PO 12/17/24 20:59 5 mg BID YUNIOR Administration Atorvastatin Calcium 40 mg 11/18/24 09:00 11/19/24 08:11 Atorvastatin 40 Mg Tab PO 12/18/24 08:59 40 mg QAM YUNIOR Administration Dexamethasone 4 mg 11/18/24 09:00 11/19/24 08:11 Dexamethasone 4 Mg Tab PO 12/18/24 08:59 4 mg QAM YUNIOR Administration Piperacillin Sod/Tazobactam Sod 4.5 gm in 100 mls @ 25 mls/hr 11/17/24 20:00 11/19/24 15:58 Zosyn IV 11/24/24 19:59 Infused Q8H YUNIOR Infusion Protocol Ipratropium [place] 0.5 mg 11/18/24 14:00 11/19/24 12:35 Ipratropium [place] Neb Soln 0.02% 0.5mg/2.5ml Vial [facility] 12/18/24 13:59 0.5 mg Q6R YUNIOR Administration Levalbuterol HCl 1.25 mg 11/18/24 14:00 11/19/24 12:35 Levalbuterol 1.25 Mg/3 Ml Neb [facility] 12/18/24 13:59 1.25 mg Q6R YUNIOR Administration Pregabalin 25 mg 11/17/24 21:00 11/19/24 14:51 Pregabalin 25 Mg Cap PO 12/17/24 20:59 25 mg TID YUNIOR Administration Sodium Chloride 4 ml 11/18/24 19:00 11/19/24 07:06 Sodium Chlor 7% [address] [facility] 12/18/24 18:59 4 ml BIDR YUNIOR Administration Trazodone HCl 100 mg 11/17/24 21:00 11/18/24 20:57 Trazodone Hcl 100 Mg Tab PO 12/17/24 20:59 100 mg HS YUNIOR Administration (1) Pneumonia Laterality: left Lung location: lower lobe of lung Pneumonia type: due to unspecified organism Qualified Code(s): J18.9 - Pneumonia, unspecified organism (4) Lung cancer Laterality: unspecified laterality Lung location: unspecified part of lung Qualified Code(s): C34.90 - Malignant neoplasm of unspecified part of unspecified bronchus or lung (5) CHF (congestive heart failure) Heart failure chronicity: acute on chronic Heart failure type: unspecified Qualified Code(s): I50.9 - Heart failure, unspecified
[2024-11-20 04:01] VITALS: TEMP 97.5
[2024-11-20 05:48] LABS: Hematocrit (blood only) 26.6 % (42.0-52.0); Hemoglobin 8.4 g/dl (14.0-18.0); Mean Corpuscular Hemoglobin 33.6 pg (25.0-34.0); Mean Corpuscular Volume 106.4 fL (80.0-100.0); Platelet Count 126 K/uL (130-400); RDW Standard Deviation 67.4 fL (36.4-46.3); Red Blood Count 2.50 M/uL (4.70-6.10); White Blood Count 8.31 K/ul (4.8-10.8)
[2024-11-20 06:02] LABS: Alanine Aminotransferase 25.0 U/L (7-52); Albumin Globulin Ratio 0.8 (0.9-2); Alkaline Phosphatase 78.0 U/L (34-104); Anion Gap 2.0 (3-11); Bilirubin,Total 0.3 mg/dl (0.2-1.0); Blood Urea Nitrogen 22.0 mg/dl (6-23); Calcium 8.3 mg/dl (8.6-10.3); Carbon Dioxide 33.0 mmol/L (21-32); Chloride 99.0 mmol/L (98-107); Creatinine Clr Calc Pharmacy 101.5 ml/min; Globulin 2.8 gm/dl (2.5-4.0); Glucose 121.0 mg/dl (70-99(Fasting)); Potassium 4.8 mmol/L (3.5-5.1); Sodium 134.0 mmol/L (136-145); Total Protein 4.9 gm/dl (6.0-8.3)
[2024-11-20 08:16] VITALS: BP 108/66; PULSE 70; RESP 18; O2SAT 94
[2024-11-20] MEDS: PREGABALIN 25 MG CAP PO SCH (09:14)
[2024-11-20] MEDS ORDERED: ONDANSETRON INJ 2 MG/ML 2 ML VIAL IV PRN (09:59)
[2024-11-20] MEDS ORDERED: MoRPHine SULFATE 10 MG/0.5 ML UDP PO PRN (09:59)
[2024-11-20] MEDS ORDERED: LEVALBUTEROL 1.25 MG/3 ML NEB NEB PRN (11:13)
[2024-11-20] MEDS ORDERED: SODIUM CHLOR 7% 4 ML NEB NEB PRN (11:13)
[2024-11-20] MEDS ORDERED: IPRATROPIUM BROMIDE NEB SOLN 0.02% 0.5MG/2.5ML VIAL NEB PRN (11:13)
--- NOTE | 2024-11-20 13:05 | Hospitalist Progress Note ---
Date of Service November 20, 2024 Assessment & Plan (1) Pneumonia: (2) Weakness: (3) Paroxysmal atrial fibrillation: (4) Lung cancer: (5) CHF (congestive heart failure): (6) Intermittent complete heart block: (7) Hypertension: Plan Mr. Molina is a 74 yo male with pmhx of dyslipidemia, COPD, pulmonary fibrosis, sleep apnea, paroxysmal atrial fibrillation, hypertension, left bundle branch block, history of CAD, history of complete heart block status post permanent pacemaker, chronic DVT of the popliteal vein of the right lower extremity, GERD, insomnia, metastatic lung adenocarcinoma who presents for fatigue and weakness 2/2 end stage lung adenocarcinoma and admitted for acute on chronic hypoxic resp failure iso sepsis and HAP. Discussed case with daughter. Plan to transition to comfort measures at this time with plans for home hospice in next 24-48 hours. #End Stage Metastatic NSCLC #Acute on Chronic Hypoxic Respiratory Failure #Pulmonary Fibrosis #COPD #DAVID #Severe Sepsis #HAP -follows with Dr. Trinidad outpatient, s/p docetaxel, carboplatin, keytruda, capmatinib, plan was for outpatient f/u PET scan given poor overall condition -patient with ECOG 3 sliding to 4 at this time, cachexia and sarcopenia noted -prognosis on scale of days to weeks, discussed GOC, will attempt to stabilize patient for discharge home with hospice services -patient aware that he may in the hospital, does not want CPR, intubation, Bipap, artificial life support other than high flow NC -xray with LLL infiltrate consistent with likely HAP given recent hospitalization -sepsis due to leukocytosis, tachycardia, severe due to borderline shock, tropon in elevation Blood cultures ngtd UA negative, sputum with [place] MRSA swab negative, discontinue vanc Transition to comfort measures, will complete course of zosyn while admitted. nebs prn for comfort #S/p Pacemaker Placement #Paroxysmal Atrial Fibrillation -continue eliquis discontinued statin #Macrocytic Anemia -chronic, at baseline #Type 2 [place] -likely 2/2 severe dehydration, severe sepsis Admission and Anticipated Discharge Date Admission Date: November 17, 2024 Subjective NAEO more calm, but still confused this am no acute concerns Physical Exam Constitutional: WD/WN, vitals as above Respiratory: diminished, diffuse rhonchi Cardiovascular: RRR, no murmur, no edema Results & Data Results & Data Vital Signs (Past 12 Hours) Vital Signs Temp Pulse Pulse Resp BP Pulse Ox O2 Del Method 11/20/24 10:23 Nasal Cannula 11/20/24 08:15 36.4 C L 70 18 108/66 94 Nasal Cannula 11/20/24 07:17 76 20 95 Nasal Cannula 11/20/24 07:00 69 11/20/24 03:58 36.4 C L 78 16 110/68 90 Nasal Cannula O2 Flow Rate 11/20/24 10:23 4 11/20/24 08:15 11/20/24 07:17 4 11/20/24 07:00 11/20/24 03:58 4 Laboratory Results Short CBC 11/20/24 Range/Units 04:56 WBC 8.31 (4.8-10.8) K/ul Hgb 8.4 L (14.0-18.0) g/dl Hct 26.6 L (42.0-52.0) % Plt Count 126 L (130-400) K/uL BMP 11/20/24 04:56 Sodium 134 L Potassium 4.8 Chloride 99 Carbon Dioxide 33 H BUN 22 Creatinine 0.68 Glucose 121 H Calcium 8.3 L Liver Function 11/20/24 Range/Units 04:56 Total Bilirubin 0.3 (0.2-1.0) mg/dl AST 17 (13-39) U/L ALT 25 (7-52) U/L Alkaline Phosphatase 78 (34-104) U/L Albumin 2.1 L (3.4-5.0) gm/dl Medications Administered Home Medications Medication Instructions Recorded Confirmed Last Taken apixaban 5 mg (74 tabs) tablets in 5 mg PO BID 10/01/24 11/17/24 11/03/24 a dose pack (Eliquis) atorvastatin 40 mg tablet 40 mg PO QAM 10/01/24 11/17/24 11/03/24 fluticasone fur. 100 mcg-umeclid 1 inh inhalation DAILY 10/01/24 11/17/2411/03 62.5 mcg-vilant 25 mcg inhalat.powder (Trelegy Ellipta) multivitamin 1 tab PO QAM 10/01/24 11/17/24 11/03/24 acetaminophen 500 mg tablet 1,000 mg PO BID PRN Pain 10/23/24 11/17/24 Unknown calcium 600 mg (as 1 tab PO DAILY 10/23/24 11/17/24 11/03/24 carbonate)-vitamin D3 5 mcg (200 unit) tablet ferrous sulfate 325 mg (65 mg 325 mg PO DAILY 10/23/24 11/17/24 11/03/24 iron) tablet (iron) loratadine 10 mg tablet 10 mg PO DAILY PRN Congestion 10/23/24 11/17/24 Unknown spironolactone 25 mg tablet 12.5 mg PO 3XWK 11/05/24 11/17/24 11/03/24 gabapentin 100 mg capsule 200 mg PO TID ##0 11/06/24 11/17/24 Unknown trazodone 100 mg tablet 100 mg PO HS ##0 11/06/24 11/17/24 Unknown dexamethasone 1 mg tablet 2 mg (2 x 1 mg) PO QAM #20 tabs 11/10/24 11/17/24 U nknown metoprolol succinate 25 mg 12.5 mg (1/2 x 25 mg) PO QAM #15 11/10/24 11/17/24 Unknown tablet,extended release 24 hr tabs torsemide 20 mg tablet 20 mg PO QAM #30 tabs 11/10/24 11/17/24 Unknown megestrol 400 mg/10 mL (40 mg/mL) 0 mg PO UD 11/17/24 11/17/24 Unknown oral suspension Active Medications Generic Name Dose Route Start Last Admin Trade Name Freq PRN Reason Stop Dose Admin Apixaban 5 mg 11/17/24 21:00 11/20/24 09:14 Apixaban 5 Mg Tablet PO 12/17/24 20:59 5 mg BID YUNIOR Administration Atorvastatin Calcium 40 mg 11/18/24 09:00 11/20/24 09:14 Atorvastatin 40 Mg Tab PO 12/18/24 08:59 40 mg QAM YUNIOR Administration Dexamethasone 4 mg 11/18/24 09:00 11/20/24 09:14 Dexamethasone 4 Mg Tab PO 12/18/24 08:59 4 mg QAM YUNIOR Administration Piperacillin Sod/Tazobactam Sod 4.5 gm in 100 mls @ 25 mls/hr 11/17/24 20:00 11/20/24 12:06 Zosyn IV 11/24/24 19:59 25 mls/hr Q8H YUNIOR Administration Protocol Pregabalin 25 mg 11/20/24 09:00 11/20/24 09:14 Pregabalin 25 Mg Cap PO 12/20/24 08:59 25 mg BID YUNIOR Administration Trazodone HCl 100 mg 11/17/24 21:00 11/19/24 20:11 Trazodone Hcl 100 Mg Tab PO 12/17/24 20:59 100 mg HS YUNIOR Administration (1) Pneumonia Laterality: left Lung location: lower lobe of lung Pneumonia type: due to unspecified organism Qualified Code(s): J18.9 - Pneumonia, unspecified organism (4) Lung cancer Laterality: unspecified laterality Lung location: unspecified part of lung Qualified Code(s): C34.90 - Malignant neoplasm of unspecified part of unspecified bronchus or lung (5) CHF (congestive heart failure) Heart failure chronicity: acute on chronic Heart failure type: unspecified Qualified Code(s): I50.9 - Heart failure, unspecified
[2024-11-21] MEDS: HALOPERIDOL ORAL SOLN 2 MG/ML PO PRN (09:25)
--- NOTE | 2024-11-21 10:08 | Hospitalist Progress Note ---
Date of Service November 21, 2024 Assessment & Plan (1) Pneumonia: (2) Weakness: (3) Paroxysmal atrial fibrillation: (4) Lung cancer: (5) CHF (congestive heart failure): (6) Intermittent complete heart block: (7) Hypertension: Plan Mr. Molina is a 74 yo male with pmhx of dyslipidemia, COPD, pulmonary fibrosis, sleep apnea, paroxysmal atrial fibrillation, hypertension, left bundle branch block, history of CAD, history of complete heart block status post permanent pacemaker, chronic DVT of the popliteal vein of the right lower extremity, GERD, insomnia, metastatic lung adenocarcinoma who presents for fatigue and weakness 2/2 end stage lung adenocarcinoma and admitted for acute on chronic hypoxic resp failure iso sepsis and HAP. Discussed case with daughter. Plan to transition to comfort measures at this time with plans for home hospice. Daughter will likely be able to take patient on . #End Stage Metastatic NSCLC #Acute on Chronic Hypoxic Respiratory Failure #Pulmonary Fibrosis #COPD #DAVID #Severe Sepsis #HAP -follows with Dr. Trinidad outpatient, s/p docetaxel, carboplatin, keytruda, capmatinib, plan was for outpatient f/u PET scan given poor overall condition -patient with ECOG 3 sliding to 4 at this time, cachexia and sarcopenia noted -prognosis on scale of days to weeks, discussed GOC, will attempt to stabilize patient for discharge home with hospice services -patient aware that he may in the hospital, does not want CPR, intubation, Bipap, artificial life support other than high flow NC -xray with LLL infiltrate consistent with likely HAP given recent hospitalization -sepsis due to leukocytosis, tachycardia, severe due to borderline shock, troponin elevation Blood cultures ngtd UA negative, sputum with [place] MRSA swab negative, discontinue vanc Transition to comfort measures, will complete course of zosyn while admitted. nebs prn for comfort Likely discharge on with Hospice will start Abilify 2.5mg bid for mood/agitation #S/p Pacemaker Placement #Paroxysmal Atrial Fibrillation -continue eliquis discontinued statin #Macrocytic Anemia -chronic, at baseline #Type 2 [place] -likely 2/2 severe dehydration, severe sepsis Admission and Anticipated Discharge Date Admission Date: November 17, 2024 Subjective Delusional this morning--stressed over "communication devices at [his] shop" Very upset this morning that "no one is helping" him Able to calm and redirect, however, very brief Physical Exam Constitutional: WD/WN, vitals as above Respiratory: diminshed 2/2 effort, 4L [place] Cardiovascular: RRR, no murmur, no edema Results & Data Results & Data Vital Signs (Past 12 Hours) Vital Signs O2 Del Method O2 Flow Rate 11/21/24 07:50 Nasal Cannula 4 Medications Administered Home Medications Medication Instructions Recorded Confirmed Last Taken apixaban 5 mg (74 tabs) tablets in 5 mg PO BID 10/01/24 11/17/24 11/03/24 a dose pack (Eliquis) atorvastatin 40 mg tablet 40 mg PO QAM 10/01/24 11/17/24 11/03/24 fluticasone fur. 100 mcg-umeclid 1 inh inhalation DAILY 10/01/24 11/17/24 11/03/24 62.5 mcg-vilant 25 mcg inhalat.powder (Trelegy Ellipta) multivitamin 1 tab PO QAM 10/01/24 11/17/24 11/03/24 acetaminophen 500 mg tablet 1,000 mg PO BID PRN Pain 10/23/24 11/17/24 Unknown calcium 600 mg (as 1 tab PO DAILY 10/23/24 11/17/24 11/03/24 carbonate)-vitamin D3 5 mcg (200 unit) tablet ferrous sulfate 325 mg (65 mg 325 mg PO DAILY 10/23/24 11/17/24 11/03/24 iron) tablet (iron) loratadine 10 mg tablet 10 mg PO DAILY PRN Congestion 10/23/24 11/17/24 Unknown spironolactone 25 mg tablet 12.5 mg PO 3XWK 11/05/24 11/17/24 11/03/24 gabapentin 100 mg capsule 200 mg PO TID ##0 11/06/24 11/17/24 Unknown trazodone 100 mg tablet 100 mg PO HS ##0 11/06/24 11/17/24 Unknown dexamethasone 1 mg tablet 2 mg (2 x 1 mg) PO QAM #20 tabs 11/10/24 11/17/24 Unknown metoprolol succinate 25 mg 12.5 mg (1/2 x 25 mg) PO QAM #15 11/10/24 11/17/24 Unknown tablet,extended release 24 hr tabs torsemide 20 mg tablet 20 mg PO QAM #30 tabs 11/10/24 11/17/24 Unknown megestrol 400 mg/10 mL (40 mg/mL) 0 mg PO UD 11/17/24 11/17/24 Unknown oral suspension Active Medications Generic Name Dose Route Start Last Admin Trade Name Freq PRN Reason Stop Dose Admin Apixaban 5 mg 11/17/24 21:00 11/21/24 09:31 Apixaban 5 Mg Tablet PO 12/17/24 20:59 5 mg BID YUNIOR Administration Dexamethasone 4 mg 11/18/24 09:00 11/21/24 10:27 Dexamethasone 4 Mg Tab PO 12/18/24 08:59 4 mg QAM YUNIOR Administration Haloperidol 0.5 mg 11/20/24 09:59 11/21/24 09:25 Haloperidol Oral Soln 2 Mg/Ml PO 12/20/24 09:58 0.5 mg Q4H PRN Administration Anxiety/Agitation Piperacillin Sod/Tazobactam Sod 4.5 gm in 100 mls @ 25 mls/hr 11/17/24 20:00 11/21/24 09:14 Zosyn IV 11/24/24 19:59 Infused Q8H YUNIOR Infusion Protocol Pregabalin 25 mg 11/20/24 09:00 11/21/24 09:29 Pregabalin 25 Mg Cap PO 12/20/24 08:59 25 mg BID YUNIOR Administration Trazodone HCl 100 mg 11/17/24 21:00 11/20/24 21:05 Trazodone Hcl 100 Mg Tab PO 12/17/24 20:59 100 mg HS YUNIOR Administration (1) Pneumonia Laterality: left Lung location: lower lobe of lung Pneumonia type: due to unspecified organism Qualified Code(s): J18.9 - Pneumonia, unspecified organism (4) Lung cancer Laterality: unspecified laterality Lung location: unspecified part of lung Qualified Code(s): C34.90 - Malignant neoplasm of unspecified part of unspecified bronchus or lung (5) CHF (congestive heart failure) Heart failure chronicity: acute on chronic Heart failure type: unspecified Qualified Code(s): I50.9 - Heart failure, unspecified
[2024-11-21] MEDS: ARIPiprazole 5 MG TAB PO SCH (11:54)
[2024-11-21] MEDS: MoRPHine SULFATE 2 MG/ML CARP IV PRN (13:12)
[2024-11-21] MEDS: HEPARIN 100 UNIT/ML 5ML FLUSH FLUSH PRN (15:49)
--- NOTE | 2024-11-22 18:00 | Hospitalist Progress Note ---
Date of Service November 22, 2024 Assessment & Plan (1) Pneumonia: (2) Weakness: (3) Paroxysmal atrial fibrillation: (4) Lung cancer: (5) CHF (congestive heart failure): (6) Intermittent complete heart block: (7) Hypertension: Plan Mr. Molina is a 74 yo male with pmhx of dyslipidemia, COPD, pulmonary fibrosis, sleep apnea, paroxysmal atrial fibrillation, hypertension, left bundle branch block, history of CAD, history of complete heart block status post permanent pacemaker, chronic DVT of the popliteal vein of the right lower extremity, GERD, insomnia, metastatic lung adenocarcinoma who presents for fatigue and weakness 2/2 end stage lung adenocarcinoma and admitted for acute on chronic hypoxic resp failure iso sepsis and HAP. Discussed case with daughter. Plan to transition to comfort measures at this time with plans for home hospice. Daughter will likely be able to take patient on . #End Stage Metastatic NSCLC #Acute on Chronic Hypoxic Respiratory Failure #Pulmonary Fibrosis #COPD #DAVID #Severe Sepsis #HAP -follows with Dr. Trinidad outpatient, s/p docetaxel, carboplatin, keytruda, capmatinib, plan was for outpatient f/u PET scan given poor overall condition -patient with ECOG 3 sliding to 4 at this time, cachexia and sarcopenia noted -prognosis on scale of days to weeks, discussed GOC, will attempt to stabilize patient for discharge home with hospice services -patient aware that he may in the hospital, does not want CPR, intubation, Bipap, artificial life support other than high flow NC -xray with LLL infiltrate consistent with likely HAP given recent hospitalization -sepsis due to leukocytosis, tachycardia, severe due to borderline shock, troponin elevation Plan: -comfort care at this time -finish course of zosyn while inpatient -stop haldol and abilify given liklihood of worsening mental status -start ativan for agitation -morphine for pain -zofran for nausea/vomiting -increase lyrica to 25mg tid for neuropathic pain -plan for discharge potentially on 11/23/2024 on hospice services to SNF, apprec [place] case management assistance #S/p Pacemaker Placement #Paroxysmal Atrial Fibrillation -continue eliquis -discontinued statin #Macrocytic Anemia -chronic, at baseline #Type 2 [place] -likely 2/2 severe dehydration, severe sepsis I spent a total of 50 minutes in direct patient care, including [id number] time with the patient and/or family, reviewing medical records, ordering and reviewing diagnostic tests, and coordinating care with other healthcare providers. This time includes: history taking, physical examination, medical decision making, counseling, ECG interpretation, imaging interpretation, lab interpretation, orders, and education, excluding time spent in the performance of separately billed services. Admission and Anticipated Discharge Date Admission Date: November 17, 2024 Subjective Patient seen and examined at bedside. Patient orriented to self only, states he is in some full body pain. Review of Systems Review of Systems: -all noted and negative except for above Physical Exam Physical Exam: Gen: A&O 1 NAD, very fatigued, severe sarcopenia/cachexia noted HEENT: NCAT, EOMI, not icteric. External ears normal. No rhinorrhea. Dry mucous membranes. Neck: Supple, full range of motion, no observable masses, No meningeal sign. Lungs: rhonchi noted bilaterally CV: tachycardic, irregular rhythm Abdomen: Soft, nondistended, No rebound tenderness. MSK: notable abrasions, appears unkempt Skin: eccymoses noted Neuro: Normal Gait, Grossly intact. Psych: orriented only to self Results & Data Results & Data Vital Signs (Past 12 Hours) Vital Signs O2 Del Method O2 Flow Rate 11/22/24 08:15 Nasal Cannula 4 Laboratory Results Medications Administered Apixaban (Apixaban 5 Mg Tablet) 5 mg PO BID YUNIOR Stop: 12/17/24 20:59 Last Admin: 11/22/24 08:46 Dose: 5 mg Documented By: Admin: 11/21/24 20:40 Dose: 5 mg Documented By: Admin: 11/21/24 09:31 Dose: 5 mg Documented By: Admin: 11/20/24 21:05 Dose: 5 mg Documented By: Admin: 11/20/24 09:14 Dose: 5 mg Documented By: Admin: 11/19/24 20:11 Dose: 5 mg Documented By: [facility] Admin: 11/19/24 08:11 Dose: 5 mg Documented By: Admin: 11/18/24 20:57 Dose: 5 mg Documented By: Admin: 11/18/24 08:15 Dose: 5 mg Documented By: Admin: 11/17/24 20:11 Dose: 5 mg Documented By: [facility] Aripiprazole (Aripiprazole 5 Mg Tab) 2.5 mg PO BID YUNIOR Stop: 12/21/24 10:59 Last Admin: 11/22/24 08:45 Dose: 2.5 mg Documented By: Admin: 11/21/24 20:40 Dose: 2.5 mg Documented By: Admin: 11/21/24 11:54 Dose: 2.5 mg Documented By: LEYDI Dexamethasone (Dexamethasone 4 Mg Tab) [facility] Stop: 12/18/24 08:59 Last Admin: 11/22/24 08:46 Dose: 4 mg Documented By: Admin: 11/21/24 10:27 Dose: 4 mg Documented By: Admin: 11/20/24 09:14 Dose: 4 mg Documented By: Admin: 11/19/24 08:11 Dose: 4 mg Documented By: Admin: 11/18/24 08:15 Dose: 4 mg Documented By: JOSEFA Haloperidol (Haloperidol Oral Soln 2 Mg/Ml) 0.5 mg PO Q4H PRN PRN Reason: Anxiety/Agitation Stop: 12/20/24 09:58 Last Admin: 11/21/24 09:25 Dose: 0.5 mg Documented By: LEYDI Heparin Sodium (Porcine) (Heparin 100 Unit/Ml 5ml Flush) 5 ml FLUSH PRN PRN PRN Reason: Flush Stop: 12/17/24 21:27 Last Admin: 11/22/24 16:32 Dose: 5 ml Documented By: Admin: 11/22/24 09:59 Dose: 5 ml Documented By: Admin: 11/22/24 02:25 Dose: 5 ml Documented By: Admin: 11/22/24 00:26 Dose: 5 ml Documented By: Admin: 11/21/24 15:49 Dose: 5 ml Documented By: LEYDI Piperacillin Sod/Tazobactam Sod (Zosyn) 4.5 gm in 100 mls @ 25 mls/hr IV Q8H [facility]; Protocol Stop: 11/24/24 19:59 Last Infusion: 11/22/24 16:28 Dose: Infused Documented By: Admin: 11/22/24 12:25 Dose: 25 mls/hr Documented By: Infusion: 11/22/24 08:40 Dose: Infused Documented By: Admin: 11/22/24 04:39 Dose: 25 mls/hr Documented By: Infusion: 11/22/24 00:19 Dose: Infused Documented By: Admin: 11/21/24 20:33 Dose: 25 mls/hr Documented By: Infusion: 11/21/24 15:46 Dose: Infused Documented By: Admin: 11/21/24 11:54 Dose: 25 mls/hr Documented By: Infusion: 11/21/24 09:14 Dose: Infused Documented By: Admin: 11/21/24 05:14 Dose: 25 mls/hr Documented By: Infusion: 11/21/24 00:39 Dose: Infused Documented By: Admin: 11/20/24 21:04 Dose: 25 mls/hr Documented By: Infusion: 11/20/24 16:06 Dose: Infused Documented By: [email or web address] Admin: 11/20/24 12:06 Dose: 25 mls/hr Documented By: Infusion: 11/20/24 09:14 Dose: Infused Documented By: Admin: 11/20/24 03:57 Dose: 25 mls/hr Documented By: Infusion: 11/20/24 00:18 Dose: Infused Documented By: Admin: 11/19/24 20:10 Dose: 25 mls/hr Documented By: Infusion: 11/19/24 15:58 Dose: Infused Documented By: Admin: 11/19/24 11:46 Dose: 25 mls/hr Documented By: Infusion: 11/19/24 08:11 Dose: Infused Documented By: Admin: 11/19/24 04:00 Dose: 25 mls/hr Documented By: Infusion: 11/19/24 00:56 Dose: Infused Documented By: Admin: 11/18/24 20:56 Dose: 25 mls/hr Documented By: Infusion: 11/18/24 16:19 Dose: Infused Documented By: Admin: 11/18/24 12:16 Dose: 25 mls/hr Documented By: Infusion: 11/18/24 09:23 Dose: Infused Documented By: Admin: 11/18/24 04:09 Dose: 25 mls/hr Documented By: Infusion: 11/18/24 01:47 Dose: Infused Documented By: Admin: 11/17/24 21:40 Dose: 25 mls/hr Documented By: ELENA Lorazepam (Lorazepam 2 Mg/1 Ml Vial) 0.5 mg IV Q4H PRN PRN Reason: Anxiety/Agitation Stop: 12/20/24 09:58 Last Admin: 11/22/24 13:05 Dose: 0.5 mg Documented By: Admin: 11/22/24 02:21 Dose: 0.5 mg Documented By: Admin: 11/21/24 16:14 Dose: 0.5 mg Documented By: LEYDI Morphine Sulfate (Morphine Sulfate 2 Mg/Ml Carp) 2 mg IV Q4H PRN PRN Reason: Pain or Respiratory Distress Stop: 12/04/24 09:58 Last Admin: 11/22/24 09:59 Dose: 2 mg Documented By: Admin: 11/22/24 05:16 Dose: 2 mg Documented By: Admin: 11/22/24 00:26 Dose: 2 mg Documented By: Admin: 11/21/24 20:36 Dose: 2 mg Documented By: Admin: 11/21/24 13:12 Dose: 2 mg Documented By: LEYDI Pregabalin (Pregabalin 25 Mg Cap) 25 mg PO BID YUNIOR Stop: 12/20/24 08:59 Last Admin: 11/22/24 08:49 Dose: 25 mg Documented By: Admin: 11/21/24 20:40 Dose: 25 mg Documented By: Admin: 11/21/24 09:29 Dose: 25 mg Documented By: Admin: 11/20/24 21:05 Dose: 25 mg Documented By: Admin: 11/20/24 09:14 Dose: 25 mg Documented By: JOSEFA Trazodone HCl (Trazodone Hcl 100 Mg Tab) 100 mg PO HS YUNIOR Stop: 12/17/24 20:59 Last Admin: 11/21/24 20:40 Dose: 100 mg Documented By: Admin: 11/20/24 21:05 Dose: 100 mg Documented By: Admin: 11/19/24 20:11 Dose: 100 mg Documented By: [facility] Admin: 11/18/24 20:57 Dose: 100 mg Documented By: [facility] Admin: 11/17/24 20:12 Dose: 100 mg Documented By: [facility] (1) Pneumonia Laterality: left Lung location: lower lobe of lung Pneumonia type: due to unspecified organism Qualified Code(s): J18.9 - Pneumonia, unspecified organism (4) Lung cancer Laterality: unspecified laterality Lung location: unspecified part of lung Qualified Code(s): C34.90 - Malignant neoplasm of unspecified part of unspecified bronchus or lung (5) CHF (congestive heart failure) Heart failure chronicity: acute on chronic Heart failure type: unspecified Qualified Code(s): I50.9 - Heart failure, unspecified
[2024-11-22] MEDS: GLYCOPYRROLATE 0.2 MG/ML VIAL IV PRN (20:20)
[2024-11-22] MEDS: PREGABALIN 25 MG CAP PO SCH (20:26)
--- NOTE | 2024-11-23 14:25 | Discharge Summary ---
Discharge Summary Date of Service November 23, 2024 Principal Dx & Hospital Course #1 = Principal Diagnosis (1) Pneumonia: (2) Weakness: (3) Paroxysmal atrial fibrillation: (4) Lung cancer: (5) CHF (congestive heart failure): (6) Intermittent complete heart block: (7) Hypertension: Plan Mr. Molina is a 74 yo male with pmhx of dyslipidemia, COPD, pulmonary fibrosis, sleep apnea, paroxysmal atrial fibrillation, hypertension, left bundle branch block, history of CAD, history of complete heart block status post permanent pacemaker, chronic DVT of the popliteal vein of the right lower extremity, GERD, insomnia, metastatic lung adenocarcinoma who presents for fatigue and weakness 2/2 end stage lung adenocarcinoma and admitted for acute on chronic hypoxic resp failure iso sepsis and HAP. Discussed case with daughter. Plan to transition to comfort measures at this time with plans for home hospice. Daughter will likely be able to take patient on . #End Stage Metastatic NSCLC #Acute on Chronic Hypoxic Respiratory Failure #Pulmonary Fibrosis #COPD #DAVID #Severe Sepsis #HAP -follows with Dr. Trinidad outpatient, s/p docetaxel, carboplatin, keytruda, capmatinib, plan was for outpatient f/u PET scan given poor overall condition -patient with ECOG 3 sliding to 4 at this time, cachexia and sarcopenia noted -prognosis on scale of days to weeks, discussed GOC, will attempt to stabilize patient for discharge home with hospice services -patient aware that he may in the hospital, does not want CPR, intubation, Bipap, artificial life support other than high flow NC -xray with LLL infiltrate consistent with likely HAP given recent hospitalization -sepsis due to leukocytosis, tachycardia, severe due to borderline shock, troponin elevation Plan: -comfort care at this time -finish course of zosyn while inpatient -stop haldol and abilify given liklihood of worsening mental status -start ativan for agitation -morphine for pain -zofran for nausea/vomiting -increase lyrica to 25mg tid for neuropathic pain -plan for discharge potentially on 11/23/2024 on hospice services to SNF, appreciate case management assistance 11/23 discharge to SNF today with hospice services #S/p Pacemaker Placement #Paroxysmal Atrial Fibrillation -continue eliquis -discontinued statin #Macrocytic Anemia -chronic, at baseline #Type 2 [place] -likely 2/2 severe dehydration, severe sepsis Notes For Next Care Provider Medication Changes From Visit Per medical reconciliation Admission HPI Per Admitting Provider 74 yo male with pmhx of dyslipidemia, COPD, pulmonary fibrosis, sleep apnea, paroxysmal atrial fibrillation, hypertension, left bundle branch block, history of CAD, history of complete heart block status post permanent pacemaker, chronic DVT of the popliteal vein of the right lower extremity, GERD, insomnia, metastatic lung adenocarcinoma who presents for fatigue and weakness. Had recent admission 1 week ago for decompensated heart failure. In the ED, given zosyn, fluids, admitted to medicine. Patient seen and examined at bedside. See advanced care planning note in chart. Patient not doing well today. States he is fatigued and so weak he can barely stand up. Burning pain in bilateral LE noted per patient. No nausea, vomiting, headache, diarrhea, other symptoms. Despite his oxygen needs he denies SOB at this time. DNRDNI, will discharge home with hospice, ok with high flow NC but not Bipap. Goals are to try to survive this hospitalization with non-heroic measures and discharge home with hospice services. Admission Exam Per Admitting Provider Gen: A&O 3 NAD, very fatigued, severe sarcopenia/cachexia noted HEENT: NCAT, EOMI, not icteric. External ears normal. No rhinorrhea. Dry mucous membranes. Neck: Supple, full range of motion, no observable masses, No meningeal sign. Lungs: rhonchi noted bilaterally CV: tachycardic, irregular rhythm Abdomen: Soft, nondistended, No rebound tenderness. MSK: notable abrasions, appears unkempt Skin: eccymoses noted Neuro: Normal Gait, Grossly intact. Psych: Appropriate for situation. Discharge Exam General- sleeping, not in distress,breathing with no effort or accessory muscle use Eyes- anicteric Neck- no JVD Lungs- clear breath sounds bilaterally, no rales/wheezes Heart- normal rate, regular rhythm; no murmurs Abdomen- normal bowel sounds, nondistended, soft, nontender Extremities- no pretibial edema, no calf tenderness Neuro- sleeping Skin- warm & dry Updated Medication List Medication Instructions Recorded Confirmed Type apixaban 5 mg (74 tabs) tablets in 5 mg PO BID #30 ea 11/23/24 Rx a dose pack (Eliquis) dexamethasone 4 mg tablet 4 mg PO QAM #15 tabs 11/23/24 Rx fluticasone fur. 100 mcg-umeclid 1 inh inhalation DAILY #1 ea 11/23/24 Rx 62.5 mcg-vilant 25 mcg inhalat.powder (Trelegy Ellipta) morphine concentrate 100 mg/5 mL 5 mg (0.25 mL) PO Q3H PRN pain, 11/23/24 Rx (20 mg/mL) oral solution shortness of breath #10 mL pregabalin 25 mg capsule 25 mg PO TID #45 caps 11/23/24 Rx promethazine 6.25 mg/5 mL oral 6.25 mg (5 mL) PO Q6H PRN nausea 11/23/24 Rx syrup and vomiting #120 mL trazodone 100 mg tablet 100 mg PO HS #15 tabs 11/23/24 Rx Hospital Stay Data Consultations 11/17/24 13:52 ED Decision to Admit Stat Diagnostic Imagining Performed Laboratory Results WBC 8.31 K/ul (4.8-10.8) 11/20/24 04:56 RBC 2.50 M/uL (4.70-6.10) L 11/20/24 04:56 Hgb 8.4 g/dl (14.0-18.0) L 11/20/24 04:56 Hct 26.6 % (42.0-52.0) L 11/20/24 04:56 MCV 106.4 fL (80.0-100.0) H 11/20/24 04:56 MCH 33.6 pg (25.0-34.0) 11/20/24 04:56 MCHC 31.6 g/dL (32.0-36.0) L 11/20/24 04:56 RDW Std Deviation 67.4 fL (36.4-46.3) H 11/20/24 04:56 RDW Coeff of Kuldeep 17.2 % (11.5-14.5) H 11/20/24 04:56 Plt Count 126 K/uL (130-400) L 11/20/24 04:56 MPV 9.1 fL (9.4-12.4) L 11/20/24 04:56 Immature Gran % (Auto) 1.0 % 11/17/24 12:12 Neut % (Auto) 92.4 % 11/17/24 12:12 Lymph % (Auto) 0.9 % 11/17/24 12:12 Bucks % (Auto) 5.5 % 11/17/24 12:12 Eos % (Auto) 0.1 % 11/17/24 12:12 Baso % (Auto) 0.1 % 11/17/24 12:12 Neut # (Auto) 16.07 K/uL (1.40-6.50) H 11/17/24 12:12 Lymph # (Auto) 0.15 K/uL (1.20-3.40) L 11/17/24 12:12 Bucks # (Auto) 0.95 K/uL (0.11-0.59) H 11/17/24 12:12 Eos # (Auto) 0.01 K/uL (0.00-0.50) 11/17/24 12:12 Baso # (Auto) 0.02 K/uL (0.00-0.20) 11/17/24 12:12 Immature Gran # (Auto) 0.17 K/uL (0.01-0.20) 11/17/24 12:12 Polychromasia 1+ 11/17/24 12:12 Acanthocytes (Spur) 1+ 11/17/24 12:12 PT 13.0 Seconds (9.0-12.0) H 11/17/24 12:12 INR 1.2 (0.9-1.1) H 11/17/24 12:12 APTT 28 Seconds (21-31) 11/17/24 12:12 PTT Ratio 1.0 11/17/24 12:12 VBG pH 7.57 (7.36-7.41) H 11/17/24 12:12 VBG pCO2 37 mmHg (38-50) L 11/17/24 12:12 VBG pO2 54 mmHg 11/17/24 12:12 VBG HCO3 34 mmol/L 11/17/24 12:12 VBG O2 Saturation 87.2 % 11/17/24 12:12 VBG Base Excess 11.1 mEq/L 11/17/24 12:12 Sodium 134 mmol/L (136-145) L 11/20/24 04:56 Potassium 4.8 mmol/L (3.5-5.1) 11/20/24 04:56 Chloride 99 mmol/L (98-107) 11/20/24 04:56 Carbon Dioxide 33 mmol/L (21-32) H 11/20/24 04:56 Anion Gap 2 (3-11) L 11/20/24 04:56 BUN 22 mg/dl (6-23) 11/20/24 04:56 Creatinine 0.68 mg/dl (0.6-1.4) 11/20/24 04:56 Est Cr Clr Drug Dosing 101.5 ml/min 11/20/24 04:56 eGFR 97.54 11/20/24 04:56 BUN/Creatinine Ratio 32.4 (10-20) H 11/20/24 04:56 Glucose 121 mg/dl (70-99(Fasting)) H 11/20/24 04:56 Lactate 1.8 mmol/L (0.4-2.0) 11/17/24 13:44 Calcium 8.3 mg/dl (8.6-10.3) L 11/20/24 04:56 Phosphorus 2.6 mg/dl (2.5-4.9) 11/18/24 05:55 Magnesium 1.9 mg/dl (1.7-2.4) 11/18/24 05:55 Total Bilirubin 0.3 mg/dl (0.2-1.0) 11/20/24 04:56 Direct Bilirubin 0.2 mg/dl (0-0.2) 11/17/24 12:12 AST 17 U/L (13-39) 11/20/24 04:56 ALT 25 U/L (7-52) 11/20/24 04:56 Alkaline Phosphatase 78 U/L (34-104) 11/20/24 04:56 Ammonia 26.0 umol/L (18-72) 11/17/24 Unknown Troponin I High Sens 30.5 pg/ml (0-20) H 11/17/24 15:02 Total Protein 4.9 gm/dl (6.0-8.3) L 11/20/24 04:56 Albumin 2.1 gm/dl (3.4-5.0) L 11/20/24 04:56 Globulin 2.8 gm/dl (2.5-4.0) 11/20/24 04:56 Albumin/Globulin Ratio 0.8 (0.9-2) L 11/20/24 04:56 Procalcitonin 0.37 ng/ml (0-0.5) 11/17/24 12:12 Urine Color Yellow 11/18/24 Unknown Urine Appearance Clear (Clear) 11/18/24 Unknown Urine pH 6.5 (4.5-7.5) 11/18/24 Unknown Ur Specific [place] 1.018 (1.000-1.030) 11/18/24 Unknown Urine Protein Trace (Negative) H 11/18/24 Unknown Urine Glucose (UA) Negative (Negative) 11/18/24 Unknown Urine Ketones Negative (Negative) 11/18/24 Unknown Urine Blood 1+ (Negative) H 11/18/24 Unknown Urine Nitrite Negative (Negative) 11/18/24 Unknown Urine Bilirubin Negative (Negative) 11/18/24 Unknown Urine Urobilinogen Negative (Negative) 11/18/24 Unknown Ur Leukocyte Esterase 1+ (Negative) H 11/18/24 Unknown Urine WBC (Auto) 11-20 /hpf (0-5) H 11/18/24 Unknown Urine RBC (Auto) 6-10 /hpf (0-2) H 11/18/24 Unknown U Hyaline Cast (Auto) 0-2 /lpf (0-2) 11/18/24 Unknown U Epithel Cells (Auto) 0-2 /hpf (0-2) 11/18/24 Unknown Urine Bacteria (Auto) None Seen (None Seen) 11/18/24 Unknown Urine Comment 11/18/24 Unknown Nasal Screen MRSA (PCR) Negative (Negative) 11/17/24 Unknown Impressions Chest X-Ray 11/17/24 12:04 XR chest 1V portable CLINICAL HISTORY: Sepsis COMPARISON STUDY: 11/04/2024 FINDINGS: Stable pacemaker and chest port. Stable moderate cardiomegaly with mild pulmonary vascular congestion. There is increased reticular and patchy opacity at the left lung base. No pleural effusion or pneumothorax. IMPRESSION: Pneumonia left lung base. ACT 112: Negative or not required by law. Electronically signed by: Jonathan Lemus M.D. 11/17/2024 12:21 PM Pending Results Patient Have Any Pending Studies at Discharge: No Discharge Instructions Given to Patient (Per Discharging Provider) PLEASE REFER TO HOSPITAL DISCHARGE SUMMARY. HOSPICE CARE SERVICE TO COMMENCE AT THE RETIREMENT FACILITY. Total Time Total Time Spent Total Time Spent (In Minutes): 45 minutes
== END 2024-11-23 15:33 | disposition hospice, inpatient (51) | DRG 871 ==
LOC: ED 11:57 → 2E 13:55 → SUATTDRO 13:55 → 2E 15:23 → 3W 11-20 14:13